=== PATIENT | female | born 1950 | race Caucasian/White ===

== ENCOUNTER 2016-05-30 16:23 | Outpatient (CLI) | payer OTHER ==
[2012-08-26 22:58] VITALS: TEMP 97.5
[2015-12-30 16:16] VITALS: BMI 30.8
[2016-05-30 17:15] LABS: FLU INTERNAL QC INTERNAL QC VALID; RAPID FLU A NEGATIVE (NEGATIVE); RAPID FLU B NEGATIVE (NEGATIVE)
== END 2016-05-30 16:24 | disposition home or self-care (01) ==
LOC: LAB 16:23
PROVIDERS: ATTEND Nurse Practitioner Family
DX: J02.9 Acute pharyngitis, unspecified (principal); R05 Cough; R50.9 Fever, unspecified
CPT/HCPCS: 87651; 87804; 87880

== ENCOUNTER 2016-06-28 09:03 | Outpatient (CLI) ==
[2012-08-26 22:58] VITALS: TEMP 97.5
[2015-12-30 16:16] VITALS: BMI 30.8
== END 2016-06-28 09:04 | disposition home or self-care (01) ==
LOC: CAR 09:03
PROVIDERS: ATTEND Nurse Practitioner
DX: J44.1 Chronic obstructive pulmonary disease with (acute) exacerbation (principal)

== ENCOUNTER 2016-07-02 08:02 | Outpatient (CLI) ==
[2012-08-26 22:58] VITALS: TEMP 97.5
[2015-12-30 16:16] VITALS: BMI 30.8
[2016-07-02 08:32] LABS: CREATININE 0.76 mg/dL (0.60-1.30)
--- NOTE | 2016-07-02 09:43 | CT ---
EXAM: CT chest with contrast. HISTORY: Abnormal chest radiograph. COMPARISON: 06/18/2016. CT 08/23/2015. TECHNIQUE: Multiple axial images of the chest were obtained following intravenous administration of 75 mL of Omnipaque 350, low osmolar. Images were reformatted in the sagittal and coronal planes. FINDINGS: No mediastinal, hilar, or axillary lymphadenopathy identified. Heart size is normal. Th ere is no pericardial. Mitral annular calcifications noted. Calcified granulomatous changes noted. No consolidation, pleural effusion or pneumothorax identifie d. No definite interstitial changes, bronchiectasis or fibrosis identified. Tiny noncalcified nodu les are seen in the right lung on axial images 21 and 35 measuring 0.3 cm. Limited images of the upper abdomen demonstrate a small right renal cyst. Degenerative changes pres ent in the spine. IMPRESSION: 1. No acute abnormality of the chest. 2. Right lung micronodules. Consider follow-up chest CT in 12 months if the patient is high risk. 3. Evidence of prior granulomatous disease.
== END 2016-07-02 08:03 | disposition home or self-care (01) ==
LOC: RAD 08:02
PROVIDERS: ATTEND Nurse Practitioner
DX: R93.8 Abnormal findings on diagnostic imaging of other specified body structures (principal)
CPT/HCPCS: 36415; 82565

== ENCOUNTER 2016-07-03 20:37 | Emergency (ER) ==
[2016-07-03 20:41] VITALS: BP 148/77; TEMP 96.6; BMI 34.4
--- NOTE | 2016-07-03 21:14 | ED.PDOC ---
General ED Provider: Dr. LESVIA GARCES Chief Complaint: Fall Stated Complaint: slipped the step and fell at home, ever since hurting rt upper extremity, neck, and rt side chest. Time Seen by Physician: 21:12 Mode of Arrival: Walk-In Information Source: Patient Primary Care Provider: SMITA LOWERY Nursing and Triage Documentation Reviewed and Agree: Yes Trauma/Injury Complaint Exam - Truncal Trauma Complaint/Exam Location of Pain: Reports: Right, Anterior, Chest Symptoms Are: Still present Onset of Pain: Reports: Immediate Initial Severity: Moderate Current Severity: Moderate Mechanism: Reports: Direct blow, Fall Aggravating: Reports: Movement, Deep breathing Alleviating: Reports: None Associated Signs and Symptoms: Denies: Short of air, Chest pain, Cough, Hematuria, Abdominal pain, Fever, Nausea, Vomiting Related History: Reports: Similar episode Related Surgical History: Reports: None Skin Findings: Present: Normal findings Differential Diagnoses: Chest Wall Contusion, Rib Fracture Review of Systems - Review Of Systems Constitutional: Reports: No symptoms Eyes: Reports: No symptoms Ears, Nose, Mouth, Throat: Reports: No symptoms Respiratory: Reports: No symptoms Cardiac: Reports: No symptoms GI: Reports: No symptoms : Reports: No symptoms Musculoskeletal: Reports: Back pain, Joint pain Skin: Reports: No symptoms Neurological: Reports: No symptoms Endocrine: Reports: No symptoms Hematologic/Lymphatic: Reports: No symptoms All Other Systems: Reviewed and Negative Past Medical History - Past Medical History Previously Healthy: No Endocrine: Reports: Hypothyroid Cardiovascular: Reports: None Respiratory: Reports: None Hematological: Reports: None Gastrointestinal: Reports: GERD Genitourinary: Reports: None Neuro/Psych: Reports: Migraine Musculoskeletal: Reports: Arthritis Cancer: Reports: None Last Menstrual Period: none - Surgical History General Surgical History: Reports: Tubal ligation (TUBAL LIGATION 1976), Cholecystectomy (CHOLECYSTYECTOMY 1970), Other (intraoccular lens replacement on left eye.) - Family History Family History: Reports: Unknown - Social History Smoking Status: Former smoker Hx Substance Use: No Alcohol Screening: None Physical Exam - Physical Exam Appearance: No pain distress, Well-nourished, Obese Pain Distress: Moderate Eyes: JAMMIE, EOMI, Conjunctiva clear ENT: Ears normal, Nose normal, Oropharynx normal Respiratory: Airway patent, Breath sounds clear, Breath sounds equal, Respirations nonlabored Cardiovascular: RRR, Pulses normal, No rub, No murmur GI/: Soft, Nontender, No masses, Bowel sounds normal, No Organomegaly Musculoskeletal: No edema, No calf tenderness, Limited ROM, Limited strength Skin: Warm, Dry, Normal color Neurological: Sensation intact, Motor intact, Reflexes intact, Cranial nerves intact, Alert, Oriented Psychiatric: Affect appropriate, Mood appropriate Interpretation - Radiology Interpretation Radiology Interpretation By: Radiologist Radiology Results: Negative Exam Interpreted: CT Scan Critical Care Note - Critical Care Note Total Time (mins): 0 Course - Course Orders, Labs, Meds: Orders Category Date Time Status Ketorolac Tromethamine [Toradol] MEDS 07/03/16 22:08 Discontinued 30 mg IM ONCE STA CT CERVICAL SPINE W/O CONTRAST Stat RADS 07/03/16 21:[address] CHEST W/O CONTRAST Stat RADS 07/03/16 21:[address] MAXILLOFACIAL W/O CONTRAST Stat RADS 07/03/16 21:48 Completed FOREARM, RIGHT 2 VIEWS Stat RADS 07/03/16 21:10 Completed SHOULDER, RIGHT MIN 2V Stat RADS 07/03/16 21:10 Completed WRIST, RIGHT 3 VIEWS Stat RADS 07/03/16 21:10 Completed Medications Discontinued Medications Generic Name Dose Route Start Last Admin Trade Name Freq PRN Reason Stop Dose Admin Ketorolac Tromethamine 30 mg 07/03/16 22:08 07/03/16 22:19 Toradol IM 07/03/16 22:09 30 mg ONCE STA Administration Vital Signs: Temp Pulse Resp BP Pulse Ox 07/03/16 20:37 96.6 F L 62 20 148/77 H 97 Departure - Departure Time of Disposition: 22:55 Disposition: HOME SELF-CARE Discharge Problem: Contusion of chest wall Qualifiers: Encounter type: initial encounter Laterality: right Qualifier Code: (S20.211A) Contusion of right front wall of thorax, initial encounter Instructions: Fall Prevention for Older Adults (ED) Condition: Stable Pt referred to PMD for follow-up: Yes Additional Instructions: Keep taking pain medications Increase hydration rest fall risk discussed Allergies/Adverse Reactions: Allergies strawberry Allergy (Unknown, Verified 07/03/16 20:41) morphine Adverse Reaction (Intermediate, Verified 07/03/16 20:41) Chest Tightness tomatoes Allergy (Unknown, Uncoded 05/30/16 15:01) Home Medications: Ambulatory Orders Multivitamin 1 cap PO DAILY 08/26/12 Ranitidine HCl 150 mg PO BID 08/26/12 Levothyroxine Sodium 100 mcg PO DAILY 06/08/15 Meloxicam 15 mg PO DAILY 06/08/15 Potassium Chloride 10 meq PO DAILY 06/08/15 Cholecalciferol (Vitamin D3) [Vitamin D] 50,000 unit PO WEEKLY 06/09/15 Ibuprofen 800 mg PO PRN PRN 08/18/15 Venlafaxine HCl [Effexor Xr] 150 mg PO DAILY 08/18/15 Albuterol Sulfate [Proair Hfa] 2 puff IH Q4-6H PRN 08/24/15 Budesonide/Formoterol Fumarate [Symbicort 80-4.5 Mcg Inhaler] 2 puff IH BID Cyanocobalamin (Vitamin B-12) [Vitamin B12] 2,500 mcg PO QAM 08/24/15 Gabapentin 600 mg PO TID 08/24/15 Lisinopril/Hydrochlorothiazide [Lisinopril-Hctz 20-12.5 mg Tab] 1 tab PO DAILY 08/24/15 Tizanidine HCl 4 mg PO Q8HR PRN 08/24/15 Epinephrine [Epipen Twinpak] 0.3 mg IM PRN PRN #1 pen.injctr 12/30/15 Oxybutynin Chloride [Ditropan Xl] 5 mg PO TID 12/30/15 Oxycodone-Acetaminophe 7.5-325 [Percocet 7.5-325] 1 tab PO ONCE 12/30/15 Gabapentin 300 mg PO TID 05/30/16 Mirabegron [Myrbetriq] 50 mg PO DAILY 05/30/16 Disposition Discussed With: Patient
[2016-07-03] MEDS: TORADOL IM STA (22:19)
--- NOTE | 2016-07-03 22:29 | CT ---
CT cervical spine without contrast HISTORY: Fall with injury and pain TECHNIQUE: CT of the cervical spine with multiplanar reformations. FINDINGS: Reformatted images demonstrate normal alignment with preservation of vertebral body heigh t. Multilevel endplate spondylosis and facet arthropathy changes. No fracture seen on the axial or reformatted images. No acute surrounding soft tissue abnormalitites. Lung apices are clear. IMPRESSION: No acute findings in the cervical spine.
--- NOTE | 2016-07-03 22:32 | CT ---
EXAM: CT of the chest without contrast. HISTORY: Fall. PROCEDURE: Contiguous axial CT images of the chest without contrast with multiplanar and 3-D reform ats. FINDINGS: The heart is within normal limits in size. The thoracic aorta is within normal limits in diameter. There are calcified hilar lymph nodes. There is a calcified granuloma in the right lower lobe. No infiltrate or consolidation. No pneumothorax. The bones are intact. The adrenal glands a nd liver are normal in appearance. Impression: Negative CT of the chest.
--- NOTE | 2016-07-03 22:33 | CT ---
Exam: CT facial bones History: Fall with facial injury and pain Technique: [address] facial bones with multiplanar reformations FINDINGS: Paranasal sinuses are clear. Orbits are intact. Zygoma and nasal bones are intact. [place] air cells and middle ears are clear. Maxilla and mandible are intact. Orbits are intact. [place] air cells and middle ears are clear. Impression: 1. No facial fracture
--- NOTE | 2016-07-03 22:34 | DI ---
EXAM: Three views of the right shoulder. HISTORY: Fall and pain. FINDINGS: The bones are intact with no evidence of fracture. The joint spaces are maintained. There is degenerative spurring along the inferior margin of the acromioclavicular joint. No soft tissue abnormality. Impression: No evidence of fracture. Degenerative changes as described.
--- NOTE | 2016-07-03 22:34 | DI ---
Exam: Right wrist three-view History: Fall with injury and pain Findings / impression: Advanced osteoarthritic change of the first carpal-metacarpal joint. No car pal fracture or distal radius fracture is seen. No acute bony or articular abnormalities are seen.
--- NOTE | 2016-07-03 22:36 | DI ---
EXAM: Two views of the right forearm. HISTORY: Fall. FINDINGS: The bones are intact with no evidence of fracture. The joint spaces are maintained. Ther e is degenerative spurring along the margins of the medial and lateral humeral epicondyles and along the margin of the coronoid process. No soft tissue abnormality. Impression: No evidence of fracture. Degenerative changes as described.
== END 2016-07-03 23:00 | disposition home or self-care (01) ==
LOC: ED 20:37
DX: S20.211A Contusion of right front wall of thorax, initial encounter (principal); M54.2 Cervicalgia; M79.601 Pain in right arm; W10.9XXA Fall (on) (from) unspecified stairs and steps, initial encounter; Y92.009 Unspecified place in unspecified non-institutional (private) residence as the place of occurrence of the external cause
CPT/HCPCS: 96372; 99283

== ENCOUNTER 2016-11-06 10:57 | Emergency (ER) ==
[2016-11-06 11:01] VITALS: BP 154/74; TEMP 97.5; BMI 39.1
[2016-11-06 11:55] LABS: BASOPHILS # (AUTO) 0.1 K/uL (0-0.2); BASOPHILS % (AUTO) 0.6 % (0.0-3.0); EOSINOPHILS # (AUTO) 0.3 K/ul (0.0-0.7); EOSINOPHILS % (AUTO) 3.3 % (0.0-7.0); HEMATOCRIT 37.8 % (37.0-47.0); IMMATURE GRANULOCYTE % (AUTO) 0.1 % (0.0-5.0); LYMPHOCYTES # (AUTO) 1.8 K/uL (0.60-3.4); LYMPHOCYTES % (AUTO) 20.8 (10.0-50.0); MEAN CORPUSCULAR HEMOGLOBIN 31.5 pg (27.0-31.0); MEAN CORPUSCULAR HGB CONC 34.4 (31.8-35.4); MEAN CORPUSCULAR VOLUME 91.5 fl (81.0-99.0); MONOCYTES # (AUTO) 0.9 K/uL (0.4-2.0); MONOCYTES % (AUTO) 10.3 (0-10); NEUTROPHILS # (AUTO) 5.5 K/ul (2.0-6.9); NEUTROPHILS % (AUTO) 64.9; PLATELET COUNT 242 10^3/uL (140-440); RED BLOOD COUNT 4.13 10^6/ul (4.20-5.40); WHITE BLOOD COUNT 8.41 K/ul (4.6-10.2)
[2016-11-06 12:28] LABS: ALBUMIN 3.6 g/dL (3.4-5.0); ALBUMIN/GLOBULIN RATIO 0.95; ANION GAP 15.6; BILIRUBIN,TOTAL 0.38 mg/dL (0.00-1.20); BUN/CREATININE RATIO 20.25; CALCIUM 9.8 mg/dL (8.2-10.2); CREATININE 0.79 mg/dL (0.60-1.30); POTASSIUM 3.6 mmol/L (3.5-5.10); TOTAL PROTEIN 7.4 g/dL (5.8-8.1); TROPONIN I 0.033 ng/ml (0.0000-0.4000)
[2016-11-06 12:29] LABS: CREATINE KINASE MB 2.9 ng/ml (0.0-3.6)
--- NOTE | 2016-11-06 12:36 | CT ---
EXAM: CT head without contrast. HISTORY: Left arm weakness. COMPARISON: 09/09/2016. TECHNIQUE: Multiple axial images of the brain were obtained from the skull base through the vertex without intravenous contrast. FINDINGS: There is no intracranial hemorrhage or extraaxial collection. The lopez-white differentia tion is maintained without evidence for acute large vascular territory infarction. There are areas of periventricular and subcortical white matter low attenuation. The cortical sulci and cerebral ve ntricles are symmetrically enlarged. The basal cisterns are well visualized. There is no hydroceph alus, mass effect, or midline shift. The paranasal sinuses and mastoid air cells are clear. The ca lvarium is intact. Since the prior study, there has been no significant interval change. IMPRESSION: 1. No acute intracranial abnormality. 2. Chronic small vessel ischemic changes and atrophy.
--- NOTE | 2016-11-06 12:37 | CT ---
EXAM: CT left shoulder without contrast. HISTORY: Left shoulder pain, weakness. COMPARISON: Radiograph 04/26/2015. TECHNIQUE: Multiple axial images of the left shoulder were obtained without intravenous contrast. Images were reformatted in the sagittal and coronal planes. FINDINGS: Bone mineralization is decreased. No fracture or dislocation identified. Moderate to se dandre joint space narrowing and spurring seen at the acromioclavicular joint. Mild to moderate palomo es seen at the glenohumeral joint. No erosive changes identified. Adjacent soft tissues are unremar kable. Visualized right lung is clear IMPRESSION: 1. No fracture or dislocation. 2. 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
--- NOTE | 2016-11-06 12:39 | CT ---
EXAM: CT chest without contrast HISTORY: Cough COMPARISON: CT chest 07/03/2016 and multiple priors TECHNIQUE: Serial axial images of the chest were obtained from the lung apices to the upper abdomen without contrast. These were viewed in multiple planes. FINDINGS: The thyroid is normal. The visualized vessels demonstrate minimal atherosclerotic change without aneurysm or stenosis. The heart is normal in size without pericardial effusion. There are no pathologically enlarged mediastinal or hilar lymph nodes. Few small calcified right hilar lymph nodes are present. The there is no pneumothorax or pleural effusion. There is motion artifact which mildly limits this evaluation. There is minimal bibasilar atelectasis. Calcified granulomas noted in the right lower lobe. The airways are patent. The osseous structures demonstrate degenerative disease throughout the thoracic spine no compression fracture. The soft tissues in the upper abdomen are unchanged from prior examination with an exoph ytic low attenuation lesion of the right kidney. IMPRESSION: 1. No acute cardiopulmonary process with minimal bibasilar atelectasis. 2. Sequela of old granulomatous disease. 3. Multilevel degenerative disease of the spine.
--- NOTE | 2016-11-06 12:55 | ED.PDOC ---
General ED Provider: Dr. SAMAN COLVIN Chief Complaint: Weakness Stated Complaint: right shoulder pain with movement Time Seen by Physician: 11:00 (nurse atbedside at all times pat and cher ) Mode of Arrival: Walk-In Information Source: Patient Exam Limitations: No limitations Primary Care Provider: SMITA LOWERY Nursing and Triage Documentation Reviewed and Agree: Yes (must have mri cher present pulses checked) Musculoskeletal Complaint Exam - Shoulder Pain Complaint/Exam Mechanism of Injury: Reports: No known trauma Onset/Duration: chronic Timing: Constant Initial Severity: Moderate Current Severity: Moderate Character: Reports: Throbbing, Spasmodic, Stiffness Alleviating: Reports: Rest Aggravating: Reports: Movement, Lifting, Flexion, Extension, Internal rotation, External rotation, Abduction Associated Signs and Symptoms: Denies: Swelling, Redness, Bruising, Fever, Weakness, Numbness, Tingling Related History: Reports: Similar episode Non-Orthopedic Risk Factors: Reports: None Septic Arthritis Risk Factors: Reports: Extremes of age Related Surgical History: Reports: None Limited Range of Motion: Present: Abduction, Adduction, Flexion, Extension, Internal rotation, External rotation, Rotator cuff muscles, Rotator cuff insertion Differential Diagnoses: Rotator Cuff Injury, Sprain, Strain, Tendonitis Review of Systems - Review Of Systems Constitutional: Reports: No symptoms Eyes: Reports: No symptoms Ears, Nose, Mouth, Throat: Reports: No symptoms Respiratory: Reports: No symptoms Cardiac: Reports: No symptoms GI: Reports: No symptoms : Reports: No symptoms Musculoskeletal: Reports: Joint pain Skin: Reports: No symptoms Neurological: Reports: No symptoms Endocrine: Reports: No symptoms Hematologic/Lymphatic: Reports: No symptoms All Other Systems: Reviewed and Negative Past Medical History - Past Medical History Previously Healthy: No Endocrine: Reports: Hypothyroid Cardiovascular: Reports: None Respiratory: Reports: None Hematological: Reports: None Gastrointestinal: Reports: GERD Genitourinary: Reports: None Neuro/Psych: Reports: Migraine Musculoskeletal: Reports: Arthritis Cancer: Reports: None Last Menstrual Period: none - Surgical History General Surgical History: Reports: Tubal ligation (TUBAL LIGATION 1976), Cholecystectomy (CHOLECYSTYECTOMY 1970), Other (intraoccular lens replacement on left eye.) - Family History Family History: Reports: Unknown - Social History Smoking Status: Current every day smoker, Light tobacco smoker Hx Substance Use: No Alcohol Screening: None Physical Exam - Physical Exam Appearance: Well-appearing, No pain distress, Well-nourished Eyes: JAMMIE, EOMI, Conjunctiva clear ENT: Ears normal, Nose normal, Oropharynx normal Respiratory: Airway patent, Breath sounds clear, Breath sounds equal, Respirations nonlabored Cardiovascular: RRR, Pulses normal, No rub, No murmur GI/: Soft, Nontender, No masses, Bowel sounds normal, No Organomegaly Musculoskeletal: Limited ROM (on all planes of motion with same pain distal pulses are strong and present) Skin: Warm, Dry, Normal color Neurological: Sensation intact, Motor intact, Reflexes intact, Cranial nerves intact, Alert, Oriented Psychiatric: Affect appropriate, Mood appropriate Interpretation - Radiology Interpretation Radiology Interpretation By: Radiologist Radiology Results: Positive (djd) Critical Care Note - Critical Care Note Total Time (mins): 0 Course - Course Hematology/Chemistry: 11/06/16 11:49 11/06/16 11:49 Orders, Labs, Meds: Lab Review 11/06/16 11:49 WBC 8.41 RBC 4.13 L Hgb 13.0 Hct 37.8 MCV 91.5 MCH 31.5 H MCHC 34.4 RDW Coeff of [place] 13.2 Plt Count 242 Immature Gran % (Auto) 0.1 Neut % (Auto) 64.9 Lymph % (Auto) 20.8 [place] % (Auto) 10.3 H Eos % (Auto) 3.3 Baso % (Auto) 0.6 Immature Gran # (Auto) 0.0 Neut # 5.5 Lymph # 1.8 [place] # 0.9 Eos # 0.3 Baso # 0.1 Sodium 142 Potassium 3.6 Chloride 104 Carbon Dioxide 26 Anion Gap 15.6 BUN 16 Creatinine 0.79 Estimated GFR (MDRD) 73.00 BUN/Creatinine Ratio 20.25 Glucose 143 H Calcium 9.8 Total Bilirubin 0.38 AST 16 ALT 22 Alkaline Phosphatase 66 Total Creatine Kinase 125 CK-MB (CK-2) 2.9 CK-MB (CK-2) % 2.63560 Troponin I 0.0330 Total Protein 7.4 Albumin 3.6 Globulin 3.8 Albumin/Globulin Ratio 0.95 Orders Category Date Time Status CBC W/ AUTO DIFF Stat LAB 11/06/16 11:49 Completed COMPREHENSIVE METABOLIC PANEL Stat LAB 11/06/16 11:49 Completed CREATINE KINASE Stat LAB 11/06/16 11:49 Completed TROPONIN I Stat LAB 11/06/16 11:[address] CHEST W/O CONTRAST Stat RADS 11/06/16 11:[address] HEAD W/O CONTRAST Stat RADS 11/06/16 11:[address] SHOULDER LEFT W/O CONTRAST Stat RADS 11/06/16 11:40 Completed Vital Signs: Temp Pulse Resp BP Pulse Ox 11/06/16 10:57 97.5 F L 72 18 154/74 H 95 Departure - Departure Time of Disposition: 12:55 Disposition: HOME SELF-CARE Discharge Problem: Shoulder pain, left Instructions: Arthralgia (ED), Calcific Tendinitis (ED), Shoulder Sprain (ED), Adhesive Capsulitis (ED), Shoulder Pain (ED) Condition: Good Pt referred to PMD for follow-up: Yes Additional Instructions: Please call your Family Physician as soon as possible to schedule a follow-up appointment. Allergies/Adverse Reactions: Allergies strawberry Allergy (Unknown, Verified 11/06/16 11:01) morphine Adverse Reaction (Intermediate, Verified 11/06/16 11:01) Chest Tightness tomatoes Allergy (Unknown, Uncoded 05/30/16 15:01) Home Medications: Ambulatory Orders Multivitamin 1 cap PO DAILY 08/26/12 Ranitidine HCl 150 mg PO BID 08/26/12 Levothyroxine Sodium 100 mcg PO DAILY 06/08/15 Meloxicam 15 mg PO DAILY 06/08/15 Potassium Chloride 10 meq PO DAILY 06/08/15 Cholecalciferol (Vitamin D3) [Vitamin D] 50,000 unit PO WEEKLY 06/09/15 Ibuprofen 800 mg PO PRN PRN 08/18/15 Venlafaxine HCl [Effexor Xr] 150 mg PO DAILY 08/18/15 Albuterol Sulfate [Proair Hfa] 2 puff IH Q4-6H PRN 08/24/15 Budesonide/Formoterol Fumarate [Symbicort 80-4.5 Mcg Inhaler] 2 puff IH BID Cyanocobalamin (Vitamin B-12) [Vitamin B12] 2,500 mcg PO QAM 08/24/15 Gabapentin 600 mg PO TID 08/24/15 Lisinopril/Hydrochlorothiazide [Lisinopril-Hctz 20-12.5 mg Tab] 1 tab PO DAILY 08/24/15 Tizanidine HCl 4 mg PO Q8HR PRN 08/24/15 Epinephrine [Epipen Twinpak] 0.3 mg IM PRN PRN #1 pen.injctr 12/30/15 Oxybutynin Chloride [Ditropan Xl] 5 mg PO TID 12/30/15 Oxycodone-Acetaminophe 7.5-325 [Percocet 7.5-325] 1 tab PO ONCE 12/30/15 Gabapentin 300 mg PO TID 05/30/16 Mirabegron [Myrbetriq] 50 mg PO DAILY 05/30/16 Hydrocodone/Acetaminophen [[place] 10-325 Tablet] 1 each PO Q8HR #12 tablet
== END 2016-11-06 13:16 | disposition home or self-care (01) ==
LOC: ED 10:57
DX: M25.512 Pain in left shoulder (principal); R53.1 Weakness; E03.9 Hypothyroidism, unspecified; M19.90 Unspecified osteoarthritis, unspecified site; Z79.899 Other long term (current) drug therapy; F17.210 Nicotine dependence, cigarettes, uncomplicated
CPT/HCPCS: 36415; 80053; 82550; 82553; 84484; 85025; 93005; 93010; 99283

== ENCOUNTER → 2017-01-30 | Outpatient (RCR) ==
[2012-08-26 22:58] VITALS: TEMP 97.5
--- NOTE | 2017-01-30 15:19 | RS.OPPTEV2 ---
Date of Note: 01/30/17 Visit #: 1 Date of Evaluation: 01/30/17 Payer Source: MEDICARE Treatment Diagnosis: Right shoulder stiffness, weakness, pain. History of Condition/Mechanism of Injury:: Patient reports having a Rotator cuff repair on 12/05/16 then found out she had an infection and had to have another surgery to clean it out on 01/08/17. Prior Level of Function.....Patient was independent with: ADL's, Self Care, Caregiving, Ambulation/Mobility, Community Integration/Access Functional Limitations: Sleep, Self Care, ADL's, Reaching, Pushing, Pulling, Lifting, Carrying, Community Access/Integration Current Subjective/complaints:: Patient reports she is right handed and has limited use of the right UE at this time. States she has been have to learn to do things with the left UE. She reports pain with attempts to use the right UE. She has been performing the pendulum exercises as instructed by the doctor' s office. Reports no problems with the left UE. She is unable to use the right UE for selfcare or ADL's. She takes pain medication as needed. Patient states she has been having trouble closing the right hand completely since her surgery. States she wore a sling home from the initial surgery and was told she could take it off when she got home. Also instructed to avoid lifting over 1 lb. Treatment Side (optional): Right Medical History Smoking Status: Former smoker Hx Home Medications: Venlafaxine, Percocet, Ditropan, Meloxicam,Lisinopril-HCTZ , Levothyroxine, Ibuprofen, Bagapentin, [place]. Patient's Goals: Her goal is to regain functional use of the right UE. Pain Assessment - Pain Description Pain Location: right shoulder Current Pain Intensity: 5/10 Worst Pain Intensity: 7/10 Functional Outcome Measure UE Functional Index: 27 (27/80=66.25% impairment) - G Codes & Severity Modifier G Codes & Modifier: Selfcare current CL. Selfcare goal CJ Source of G Code score: UE functional scale. Observation - Observation Posture: Forward Head, Rounded Shoulders, Scapula Asymmetry (right scapula depressed compared to left) Handedness: Right Shoulder ROM: Left WFL's Shoulder Muscle Strength: Left WFL's - Right Shoulder ROM Right Shoulder Flexion: 35 (degrees AROM) Right Shoulder Extension: 40 (degrees AROM) Right Shoulder Abduction: 31 (degrees AROM) Right Shoulder Internal Rotation: 60 (degrees AROM) Right Shoulder External Rotation: 0 (degrees AROM) Right Shoulder ROM Limitations: Soft Tissue Tightness, Muscle Weakness, Pain Comments: PROM of the right shoulder: flexion 80-85 degrees, abduction 78-80 degrees, ER 5 degrees. - Right Shoulder Strength Right Shoulder Flexion: 3+ Fair+ Right Shoulder Extension: 4 Good Right Shoulder Abduction: 3 Fair Right Shoulder Adduction: 4 Good Right Shoulder External Rotation: 4- Good- Right Shoulder Internal Rotation: 4 Good - Special Tests Comments: Unable to perform valid Special tests due to pain and limited movement. Barrel Planer Strength Left Hand Barrel Planer Strength: 35 lbs. Right Hand Barrel Planer Strength: 5 lbs. Dynamometer Testing Position: 2nd Position Palpation Comments:: Patient reports some tenderness over her incision and over the insertion site of the supraspinatus and infraspinatus tendons. Sensation - Sensation Right Upper Extremity: Intact/Normal Left Upper Extremity: Intact/Normal Interventions - Exercise/Activities/Manual Therapy Exercises/Activities: Patient instructed in RTC series in pendulum position, wand for active assisted shoulder flexion and abduction, and self stretch in shoulder ER. Received stretching into right shoulder flexion, abduction, and ER. Performed contract-relax technique for shoulder IR to stretch further into ER. Total minutes of Exercise: X 14 mins Manual Therapy: NA HOME EXERCISE PROGRAM: RTC series in pendulum position, wand for active assisted shoulder flexion and abduction, and self stretch in shoulder ER. - Charges Total Direct Minutes: 50 mins Total Treatment Time: 50 mins Procedures billed for this date of service:: QUAN Goyal Assessment Assessment: Patient presents to therapy following right RTC repair and Excisional irrigation debridement of the right shoulder. She reports limited use of the right shoulder due to pain and weakness. She exhibits marked limitation of shoulder strength and AROM. She exhibits a capsular pattern of tightness with PROM. She is right hand dominant and requires functional shoulder AROM to perform selfcare and ADL's independently. She will benefit from stretching and progressed strengthening exercises to gain function AROM of the right UE. Patient Education: Education of diagnosis, Body/Joint mechanics, Home Exercise Program, Activity Modification, Education of Plan of Care Rehab Potential: Good Short Term Goals Goal #1: Right shoulder PROM flexion WFL's. Goal to be met by: 02/13/17 Goal #2: Passive right shoulder ER 30 degrees. Goal to be met by: 02/13/17 Goal #3: Patient and spouse independent in home exercise program. Goal to be met by: 02/13/17 Goal #4: Pt to demonstrate good postural awareness. Goal to be met by: 02/13/17 Custodial Goals Goal #1: Pt knows HEP and to continue ex's to maintain functional level at D/C. Goal to be met by: 03/11/17 Goal #2: Score on UE functional scale improved to less than 39% impairment. Goal to be met by: 03/11/17 Goal #3: Right shoulder AROM improved to allow pt to perform light ADL's & selfcare. Goal to be met by: 03/11/17 Goal #4: Pt to report right shoulder pain minimal with movement. Goal to be met by: 03/11/17 Plan - Treatment to be Provided Procedures: Therapeutic Exercises, Therapeutic Activity, Manual Therapy, Patient Education Modalities: Cryotherapy, Hot Packs - Treatment Plan Frequency: 3 X week Duration: 4 weeks ORDER # VISITS AND/OR THROUGH DATE: 03/11/17 - Treatment Code (1) Shoulder pain Code(s): M25.519 - PAIN IN UNSPECIFIED SHOULDER Qualifiers: Chronicity: acute Laterality: right Qualified Code(s): M25.511 - Pain in right shoulder (2) Shoulder stiffness Qualifiers: Laterality: right Qualified Code(s): M25.611 - Stiffness of right shoulder , not elsewhere classified (3) Weakness of shoulder Code(s): M62.81 - MUSCLE WEAKNESS (GENERALIZED) Comments: M62.81 (4) Status post rotator cuff repair Code(s): Z98.89 - OTHER SPECIFIED POSTPROCEDURAL STATES * DO NOT USE * Comments: Z98.890
== END ==
PROVIDERS: ATTEND Orthopaedic Surgery
DX: M25.511 Pain in right shoulder (principal); M25.611 Stiffness of right shoulder, not elsewhere classified; M62.81 Muscle weakness (generalized); Z47.89 Encounter for other orthopedic aftercare; Z98.890 Other specified postprocedural states

== ENCOUNTER 2017-02-28 10:00 | Outpatient (RCR) ==
[2012-08-26 22:58] VITALS: TEMP 97.5
--- NOTE | 2017-01-31 15:45 | RS.CSNOTE ---
PT Case Note Date of Note: 01/31/17 Title of document: Contact with Dr. Walters's office Note: Left a message with Salma at Dr. Walters's office regarding operative report from their office states that the rotator cuff reconstruction failed, but the patient and her spouse did not appear to have been informed of that. Salma called back this afternoon after asking Dr. Walters about it and he stated that they were informed.
--- NOTE | 2017-02-04 11:28 | RS.CSNOTE ---
PT Case Note Date of Note: 02/04/17 Title of document: Discussion with patient's spouse. Note: Patient's stopped to speak with me regarding his moving her arm more and being consistent with her exercises. I discussed with him receiving the surgery report from Dr. Walters's office for the second procedure and that it mentioned that the RTC reconstruction failed. Mr. Martinez states they were not informed that the reconstruction failed and asked that he be able to tell the patient instead of us telling her. He requested a copy of the surgery report and I informed him he would need to request a copy from the doctor's office or hospital.
--- NOTE | 2017-02-04 16:36 | RS.OPPTDN ---
Subjective Date of Note: 02/04/17 Visit #: 2 Date of Evaluation: 01/30/17 Payer Source: MEDICARE Treatment Diagnosis: Right shoulder stiffness, weakness, pain. Current Subjective/complaints:: Patient says she has been performing HEP ( pendulum, AA wand exercises for flexion/abd). Iman admits difficulty and pain with doorway ER. She says she can lift the arm better especially when she is supine and uses rice heat pad. She reports a "pop" last night indicated at the R shoulder during active shoulder flexion, but did not produce pain. - Treatment Modality: Electrical Stim Unattended Parameters/Method Applied: 4 small pads hivolt @ 125-130 pk volts x 20 mins surrounding the R shoulder prior to therex Patient Position: Sitting - Heat/Cryotherapy Treatment: Hot Pack Interventions - Exercise/Activities/Manual Therapy Exercises/Activities: Patient received Passive R shoulder all dir supine. Very limited range for ER (in fact, patient only able to achieve neutral). Patient receives long axis distraction multiple reps and contract/relax techniques for ER achievement. Patient performs AAROM using wand for bilateral shoulder flexion. Sitting at EOB: shoulder shrugs and scap adduction. Reviewed HEP and discussed mechanics of the shoulder and educated on anatomy. Total minutes of Exercise: 22 Manual Therapy: NA HOME EXERCISE PROGRAM: RTC series in pendulum position, wand for active assisted shoulder flexion and abduction, and self stretch in shoulder ER. - Charges Timed Code Treatment Minutes: 22 Total Treatment Time: 42 Procedures billed for this date of service:: hp, estim (un), ex Assessment: Patient presents with moderate pain level to the R shoulder that increases with exercise. Patient experiences relief with long axis distraction as well as increased shoulder flexion passively and actively by ~10-15 degrees. No real improvement with ER or abd however after treatment. Patient Education: Education of diagnosis, Body/Joint mechanics, Home Exercise Program, Home Safety Patient demonstrates compliance with HEP?: Yes Short Term Goals Goal #1: Right shoulder PROM flexion WFL's. Goal to be met by: 02/13/17 Progress towards Goal:: Progressing Goal #2: Passive right shoulder ER 30 degrees. Goal to be met by: 02/13/17 Goal #3: Patient and spouse independent in home exercise program. Goal to be met by: 02/13/17 Goal #4: Pt to demonstrate good postural awareness. Goal to be met by: 02/13/17 Retirement Goals Goal #1: Pt knows HEP and to continue ex's to maintain functional level at D/C. Goal to be met by: 03/11/17 Goal #2: Score on UE functional scale improved to less than 39% impairment. Goal to be met by: 03/11/17 Goal #3: Right shoulder AROM improved to allow pt to perform light ADL's & selfcare. Goal to be met by: 03/11/17 Goal #4: Pt to report right shoulder pain minimal with movement. Goal to be met by: 03/11/17 Plan PLAN OF CARE EXPIRES ON:: 03/11/17 ORDER # VISITS AND/OR THROUGH DATE: 03/11/17 PLAN: Patient to continue for RTC protocol using modalities and therex x 4 weeks
--- NOTE | 2017-02-05 11:37 | RS.OPPTDN ---
Subjective Date of Note: 02/05/17 Visit #: 3 Date of Evaluation: 01/30/17 Payer Source: MEDICARE Treatment Diagnosis: Right shoulder stiffness, weakness, pain. Current Subjective/complaints:: Patient says she has been performing HEP often and happy to see that she is able to lift her arm higher (but does include this is AAROM). She denies pain medication today and says she continues to include rice heat pack at home. Pain Assessment - Pain Description Pain Location: sore at the GH joint and distal clavicle - Treatment Modality: Electrical Stim Unattended Parameters/Method Applied: hivolt 4 small pads @ 85-95 pk volts x 20 mins surrounding the R shoulder Treatment Area: prior to therex Patient Position: Sitting - Heat/Cryotherapy Treatment: Hot Pack Interventions - Exercise/Activities/Manual Therapy Exercises/Activities: Patient received Passive R shoulder all dir supine. Very limited range for ER improved slightly to ~5 degrees. Patient receives long axis distraction multiple reps and contract/relax techniques for ER achievement. Manual isometrics for IR/ER and shoulder flexion x 5. Patient performs AAROM using wand for bilateral shoulder flexion and chest press x 10. Sitting at EOB: shoulder shrugs and scap adduction, 1# wand for bilateral shoulder flexion x 8. Pulleys x 10 with intermittent holds in terminal flexion. Total minutes of Exercise: 27 Manual Therapy: NA HOME EXERCISE PROGRAM: RTC series in pendulum position, wand for active assisted shoulder flexion and abduction, and self stretch in shoulder ER. Wall slides - Charges Timed Code Treatment Minutes: 27 Total Treatment Time: 47 Procedures billed for this date of service:: hp, ex2 Assessment: Patient progressing with AA shoulder flexion, but continues to be very limited with active motion. She is maintaining low level pain and not having the need for pain medication today. Patient Education: Education of diagnosis, Body/Joint mechanics, Home Exercise Program Patient demonstrates compliance with HEP?: Yes Short Term Goals Goal #1: Right shoulder PROM flexion WFL's. Goal to be met by: 02/13/17 Progress towards Goal:: Progressing Goal #2: Passive right shoulder ER 30 degrees. Goal to be met by: 02/13/17 Goal #3: Patient and spouse independent in home exercise program. Goal to be met by: 02/13/17 Progress towards Goal:: Progressing Goal #4: Pt to demonstrate good postural awareness. Goal to be met by: 02/13/17 Insurance Compliance Analyst Goals Goal #1: Pt knows HEP and to continue ex's to maintain functional level at D/C. Goal to be met by: 03/11/17 Goal #2: Score on UE functional scale improved to less than 39% impairment. Goal to be met by: 03/11/17 Goal #3: Right shoulder AROM improved to allow pt to perform light ADL's & selfcare. Goal to be met by: 03/11/17 Goal #4: Pt to report right shoulder pain minimal with movement. Goal to be met by: 03/11/17 Plan PLAN OF CARE EXPIRES ON:: 03/11/17 ORDER # VISITS AND/OR THROUGH DATE: 03/11/17 PLAN: Progress with ROM actively as able.
--- NOTE | 2017-02-07 14:58 | RS.OPPTDN ---
Subjective Date of Note: 02/07/17 Visit #: 4 Date of Evaluation: 01/30/17 Payer Source: MEDICARE Treatment Diagnosis: Right shoulder stiffness, weakness, pain. Current Subjective/complaints:: Patient says her pain has been low with increased activity. says he sees she is able to lift and move her arm better. Pain Assessment - Pain Description Pain Location: along the R upper arm - Treatment Modality: Electrical Stim Unattended Parameters/Method Applied: 4 small pads surrounding the R shoulder/incisional area x 20 mins @ 90-105 pk volts Patient Position: Sitting - Heat/Cryotherapy Treatment: Hot Pack Interventions - Exercise/Activities/Manual Therapy Exercises/Activities: Patient received Passive R shoulder all dir supine. She continues to be very limited with ER. Patient receives long axis distraction multiple reps and contract/relax techniques for ER achievement. Manual isometrics for IR/ER and shoulder flexion x 5. Patient performs AAROM using wand for bilateral shoulder flexion and chest press x 10. Sitting at EOB: shoulder shrugs and scap adduction, 1# wand for bilateral shoulder flexion x 8. Wall slides for shoulder flexion. Patient able to achieve ~45 degrees active flexion and 50 degrees abd. This is an improvement from evaluation. Total minutes of Exercise: 26 Manual Therapy: NA HOME EXERCISE PROGRAM: RTC series in pendulum position, wand for active assisted shoulder flexion and abduction, and self stretch in shoulder ER. Wall slides - Charges Timed Code Treatment Minutes: 26 Total Treatment Time: 46 Procedures billed for this date of service:: hp, estim (un), ex2 Assessment: Patient demo increased active motion after week 1 of PT, but with major compensation and is scapular at this time. She is eager to continue on with PT to improve ROM and function. She is very compliant with HEP. Patient Education: Education of diagnosis, Body/Joint mechanics, Home Safety Short Term Goals Goal #1: Right shoulder PROM flexion WFL's. Goal to be met by: 02/13/17 Progress towards Goal:: Progressing Goal #2: Passive right shoulder ER 30 degrees. Goal to be met by: 02/13/17 Goal #3: Patient and spouse independent in home exercise program. Goal to be met by: 02/13/17 Progress towards Goal:: Progressing Goal #4: Pt to demonstrate good postural awareness. Goal to be met by: 02/13/17 Night Coordinator Goals Goal #1: Pt knows HEP and to continue ex's to maintain functional level at D/C. Goal to be met by: 03/11/17 Goal #2: Score on UE functional scale improved to less than 39% impairment. Goal to be met by: 03/11/17 Goal #3: Right shoulder AROM improved to allow pt to perform light ADL's & selfcare. Goal to be met by: 03/11/17 Goal #4: Pt to report right shoulder pain minimal with movement. Goal to be met by: 03/11/17 Plan PLAN OF CARE EXPIRES ON:: 03/11/17 ORDER # VISITS AND/OR THROUGH DATE: 03/11/17 PLAN: Continue for therex and modalities to improve ROM actively and function.
--- NOTE | 2017-02-10 11:38 | RS.OPPTDN ---
Subjective Date of Note: 02/10/17 Visit #: 5 Date of Evaluation: 01/30/17 Payer Source: MEDICARE Treatment Diagnosis: Right shoulder stiffness, weakness, pain. Current Subjective/complaints:: Patient says she has been working on HEP and seems to be able to see some improvement with reaching, but supine only. Spouse says motion is not better in sitting or standing. Pain Assessment - Pain Description Pain Location: mostly with AROM against gravity and with end range passively R upper arm - Treatment Modality: Electrical Stim Unattended Parameters/Method Applied: hivolt 4 small pads around the R shoulder @ 60-65 pk volts x 20 mins prior to therex Patient Position: Sitting - Heat/Cryotherapy Treatment: Hot Pack Interventions - Exercise/Activities/Manual Therapy Exercises/Activities: Patient received Passive R shoulder all dir supine. She continues to be very limited with ER. Patient receives long axis distraction multiple reps and contract/relax techniques for ER achievement. Manual isometrics for IR/ER and shoulder flexion/ext x 5. Patient performs AAROM using wand for bilateral shoulder flexion and chest press x 10. Sitting at EOB : shoulder shrugs and scap adduction, 1# wand for bilateral shoulder flexion x 8. Wall slides for shoulder flexion. Patient able to achieve ~45 degrees active flexion and 50 degrees abd supine. Ended with Pulleys for flexion x 15 with static holds at end ranges. Total minutes of Exercise: 32 Manual Therapy: NA HOME EXERCISE PROGRAM: RTC series in pendulum position, wand for active assisted shoulder flexion and abduction, and self stretch in shoulder ER. Wall slides - Charges Timed Code Treatment Minutes: 32 Total Treatment Time: 52 Procedures billed for this date of service:: hp, estim (un), ex2 Assessment: Patient demo good compliancy with HEP and desires to improve with ROM/strength. She is able to demo minimal improvement with active shoulder flexion, but in supine only at this time. Remains with mild to moderate pain level only at the R upper arm along the mid deltoid. Patient Education: Education of diagnosis, Home Exercise Program Patient demonstrates compliance with HEP?: Yes Short Term Goals Goal #1: Right shoulder PROM flexion WFL's. Goal to be met by: 02/13/17 Progress towards Goal:: Progressing Goal #2: Passive right shoulder ER 30 degrees. Goal to be met by: 02/13/17 Progress towards Goal:: No Change Goal #3: Patient and spouse independent in home exercise program. Goal to be met by: 02/13/17 Progress towards Goal:: Progressing Goal #4: Pt to demonstrate good postural awareness. Goal to be met by: 02/13/17 Director Of Construction Goals Goal #1: Pt knows HEP and to continue ex's to maintain functional level at D/C. Goal to be met by: 03/11/17 Goal #2: Score on UE functional scale improved to less than 39% impairment. Goal to be met by: 03/11/17 Goal #3: Right shoulder AROM improved to allow pt to perform light ADL's & selfcare. Goal to be met by: 03/11/17 Goal #4: Pt to report right shoulder pain minimal with movement. Goal to be met by: 03/11/17 Plan PLAN OF CARE EXPIRES ON:: 03/11/17 ORDER # VISITS AND/OR THROUGH DATE: 03/11/17 PLAN: Patient to continue for therex to improve R UE ROM/strength
--- NOTE | 2017-02-13 11:54 | RS.OPPTDN ---
Subjective Date of Note: 02/13/17 Visit #: 6 Date of Evaluation: 01/30/17 Payer Source: MEDICARE Treatment Diagnosis: Right shoulder stiffness, weakness, pain. Current Subjective/complaints:: Patient and spouse reports improved active shoulder flexion and abd. She says she is working on HEP 2 times daily. She says she is able to put on her jacket now and is not relying on pain meds but 1 pill every other day. Pain Assessment - Pain Description Pain Location: R upper arm sore - Treatment Modality: Electrical Stim Unattended Parameters/Method Applied: 4 small pads to the R shoulder cross current @ 110- 130 pk volts x 15 Patient Position: Sitting - Heat/Cryotherapy Treatment: Hot Pack Interventions - Exercise/Activities/Manual Therapy Exercises/Activities: Patient received Passive R shoulder all dir supine. Patient receives long axis distraction multiple reps and contract/relax techniques for ER achievement. Manual isometrics for IR/ER and shoulder flexion /ext x 5. Patient performs AAROM using wand for bilateral shoulder flexion and chest press x 10. Active reaching (punches) and shoulder flexion. Isometrics for shoulder flexion and abd with elbow extended 2x5 reps. 1# dumbell for wrist motions in supine x 10 and elbow sup/pron x 10. Prone for pendulum with 1 # dumbell and for RTC series x 10 each dir and shrugging with the R UE. Sitting at EOB: shoulder shrugs and scap retraction with 1# wand for bilateral shoulder flexion x 8. Ended with pulleys x 20 reps with static holds. Total minutes of Exercise: 38 Manual Therapy: NA HOME EXERCISE PROGRAM: RTC series in pendulum position, wand for active assisted shoulder flexion and abduction, and self stretch in shoulder ER. Wall slides - Charges Timed Code Treatment Minutes: 38 Total Treatment Time: 53 Procedures billed for this date of service:: hp, estim (un), ex3 Assessment: Patient demo increased AA shoulder flexion to 117 degrees in supine using 1# therapy stick, also increased ROM allowing her to be able to gerard/doff jacket/shirts now. She is obviously working on HEP consistently with seeing improvements at home with mobility and function. Patient Education: Education of diagnosis, Home Exercise Program Patient demonstrates compliance with HEP?: Yes Short Term Goals Goal #1: Right shoulder PROM flexion WFL's. Goal to be met by: 02/13/17 Progress towards Goal:: Progressing Goal #2: Passive right shoulder ER 30 degrees. Goal to be met by: 02/13/17 Progress towards Goal:: Progressing Comments:: very slightly ~3 degrees beyond neutral Goal #3: Patient and spouse independent in home exercise program. Goal to be met by: 02/13/17 Progress towards Goal:: Progressing Goal #4: Pt to demonstrate good postural awareness. Goal to be met by: 02/13/17 Progress towards Goal:: Progressing [facility] Goals Goal #1: Pt knows HEP and to continue ex's to maintain functional level at D/C. Goal to be met by: 03/11/17 Goal #2: Score on UE functional scale improved to less than 39% impairment. Goal to be met by: 03/11/17 Goal #3: Right shoulder AROM improved to allow pt to perform light ADL's & selfcare. Goal to be met by: 03/11/17 Goal #4: Pt to report right shoulder pain minimal with movement. Goal to be met by: 03/11/17 Plan PLAN OF CARE EXPIRES ON:: 03/11/17 ORDER # VISITS AND/OR THROUGH DATE: 03/11/17 PLAN: Patient to continue with therex and wean estim to allow for progression of Active/Passive motion.
--- NOTE | 2017-02-14 11:28 | RS.OPPTDN ---
Subjective Date of Note: 02/14/17 Visit #: 7 Date of Evaluation: 01/30/17 Payer Source: MEDICARE Treatment Diagnosis: Right shoulder stiffness, weakness, pain. Current Subjective/complaints:: Patient reports improvement in active motion with right shoulder at low levels. Reports increased flexibility after passive stretching and distraction in supine. Pain Assessment - Pain Description Pain Location: Right shoulder joint Pain Description: Dull, Aching Current Pain Intensity: mild to mod - Treatment Modality: Electrical Stim Unattended Parameters/Method Applied: [id number] HVGC to 90p.v. with 4 small pads cross current to the right shoulder with HP prior to EX. Patient Position: Sitting - Heat/Cryotherapy Treatment: Hot Pack ([id number] with Estim ) Interventions - Exercise/Activities/Manual Therapy Exercises/Activities: Passive flexion in sitting. Isometric shouulder flex, ext , add, abd, IR, and ER. Attempt bilateral shoulder flexion with light wand, then short range IR/ER, and chest press. Patient received passive right shoulder and long axis distraction, in supine. Manual isometrics for IR/ER and shoulder flexion/ext. Patient performs AAROM using wand for bilateral shoulder flexion and chest press. Forward serratus punch with 1# dumbell. 1# dumbell for wrist and elbow. Standing leaning over high table for RTC series with 1# dumbell, 4 directions, 10reps each. Sitting at EOB: shoulder shrugs and scap retraction. Ended with overhead shoulder pulleys into flexion and abduction. Total minutes of Exercise: 30mins Manual Therapy: NA HOME EXERCISE PROGRAM: RTC series in pendulum position, wand for active assisted shoulder flexion and abduction, and self stretch in shoulder ER. Wall slides - Charges Timed Code Treatment Minutes: 30mins Total Treatment Time: 55mins Procedures billed for this date of service:: HP, Estim unattended, EX2 Assessment: Patient reports good response to increase in passive stretching of the right shoulder in supine. Patient Education: Home Exercise Program Patient demonstrates compliance with HEP?: Yes Short Term Goals Goal #1: Right shoulder PROM flexion WFL's. Goal to be met by: 02/13/17 Progress towards Goal:: Progressing Goal #2: Passive right shoulder ER 30 degrees. Goal to be met by: 02/13/17 Progress towards Goal:: Progressing Goal #3: Patient and spouse independent in home exercise program. Goal to be met by: 02/13/17 Progress towards Goal:: Progressing Goal #4: Pt to demonstrate good postural awareness. Goal to be met by: 02/13/17 Progress towards Goal:: Progressing Group Home Goals Goal #1: Pt knows HEP and to continue ex's to maintain functional level at D/C. Goal to be met by: 03/11/17 Goal #2: Score on UE functional scale improved to less than 39% impairment. Goal to be met by: 03/11/17 Goal #3: Right shoulder AROM improved to allow pt to perform light ADL's & selfcare. Goal to be met by: 03/11/17 Goal #4: Pt to report right shoulder pain minimal with movement. Goal to be met by: 03/11/17 Plan PLAN OF CARE EXPIRES ON:: 03/11/17 ORDER # VISITS AND/OR THROUGH DATE: 03/11/17 PLAN: Continue progression of ROM and strengthening exercise to reduce pain and increase functional use of the right UE.
--- NOTE | 2017-02-17 14:58 | RS.OPPTDN ---
Subjective Date of Note: 02/17/17 Visit #: 8 Date of Evaluation: 01/30/17 Payer Source: MEDICARE Treatment Diagnosis: Right shoulder stiffness, weakness, pain. Current Subjective/complaints:: Patient says she continues to see more motion, but is not moving as "high" as she'd like. She says she drove for the first time ~ 2 miles to the store over the weekend without difficulty. Denies any problems with pulling door shut or reaching for seat belt while riding passenger using the R UE. States she is working on HEP BID. Pain Assessment - Pain Description Pain Location: R upper arm sore and tight with active motion Pain Description: Tightness - Heat/Cryotherapy Treatment: Hot Pack (20 mins to the R shoulder and scapula in sitting) Interventions - Exercise/Activities/Manual Therapy Exercises/Activities: Passive flexion in sitting. Isometric shoulder flex, ext, add, abd, IR, and ER. Bilateral shoulder flexion with 1# wand, then short range IR/ER, and chest press x 10. Patient received passive right shoulder and long axis distraction, in supine. Manual isometrics for IR/ER and shoulder flexion/ext. Patient performs AAROM using wand for bilateral shoulder flexion and chest press. Forward serratus punch with 1# dumbell. 1# dumbell for wrist and elbow. Standing leaning over high table for RTC series with 1# dumbell, 4 directions, 10reps each. Sitting at EOB: shoulder shrugs and scap retraction. Red tband for scap retraction x 10. Ended with overhead shoulder pulleys into flexion and abduction x 15. Total minutes of Exercise: 29 Manual Therapy: NA HOME EXERCISE PROGRAM: RTC series in pendulum position, wand for active assisted shoulder flexion and abduction, and self stretch in shoulder ER. Wall slides - Objective Findings Observations,measurements,etc.: Shoulder AAROM (flex) with pulleys in sittin degrees. Shoulder AAROM (flex) in supine with therapy wand: 140 degrees. Active shoulder flexion in sittin-55 degrees multiple attempts. Active shoulder flexion in supine: 62 degrees - Charges Timed Code Treatment Minutes: 29 Total Treatment Time: 49 Procedures billed for this date of service:: hp, ex2 Assessment: Patient progressing slowly with A and AAROM for the R UE. Improved functional tasks and now has started driving short distances without difficulty. Pain remains low and intermittent. Patient Education: Education of diagnosis, Body/Joint mechanics, Home Exercise Program Patient demonstrates compliance with HEP?: Yes Short Term Goals Goal #1: Right shoulder PROM flexion WFL's. Goal to be met by: 02/13/17 Progress towards Goal:: Progressing Goal #2: Passive right shoulder ER 30 degrees. Goal to be met by: 02/13/17 Progress towards Goal:: Progressing Comments:: Patient still only able to achieve neutral to 5 degrees Goal #3: Patient and spouse independent in home exercise program. Goal to be met by: 02/13/17 Progress towards Goal:: Progressing Goal #4: Pt to demonstrate good postural awareness. Goal to be met by: 02/13/17 Progress towards Goal:: Progressing Facility Maintenance Manager Goals Goal #1: Pt knows HEP and to continue ex's to maintain functional level at D/C. Goal to be met by: 03/11/17 Goal #2: Score on UE functional scale improved to less than 39% impairment. Goal to be met by: 03/11/17 Goal #3: Right shoulder AROM improved to allow pt to perform light ADL's & selfcare. Goal to be met by: 03/11/17 Goal #4: Pt to report right shoulder pain minimal with movement. Goal to be met by: 03/11/17 Plan PLAN OF CARE EXPIRES ON:: 03/11/17 ORDER # VISITS AND/OR THROUGH DATE: 03/11/17 PLAN: Patient to continue with therex to improve P and AROM.
--- NOTE | 2017-02-20 12:01 | RS.OPPTDN ---
Subjective Date of Note: 02/20/17 Visit #: 9 Date of Evaluation: 01/30/17 Payer Source: MEDICARE Treatment Diagnosis: Right shoulder stiffness, weakness, pain. Current Subjective/complaints:: Patient says she has been working on reaching at home being able to grasp headboard on her bed. Reports feeling good after her previous session this week. Iman says her follow up with Dr. Walters was moved to tomorrow after her PT session. She says she has not had much pain and says she rarely takes pain medication. Pain Assessment - Pain Description Pain Location: intermittent "soreness" - Heat/Cryotherapy Treatment: Hot Pack (20 mins to the R shoulder in sitting prior to therex) Interventions - Exercise/Activities/Manual Therapy Exercises/Activities: Passive flexion in sitting. Isometric shoulder flex, ext, add, abd, IR, and ER. Bilateral shoulder flexion with 1# wand, then short range IR/ER, and chest press x 10. Shoulder flexion contract/relax. Patient received passive right shoulder and long axis distraction, in supine. Manual isometrics for IR/ER and shoulder flexion/ext. Patient performs AAROM using wand for bilateral shoulder flexion and chest press. Forward serratus punch with 1# dumbell. Sitting bilateral ball squeezes for IR x 10, 1# wand for bilateral shoulder flexion. Standing: UBE for/retro x 1.5 mins each Total minutes of Exercise: 28 Manual Therapy: NA HOME EXERCISE PROGRAM: RTC series in pendulum position, wand for active assisted shoulder flexion and abduction, and self stretch in shoulder ER. Wall slides - Charges Timed Code Treatment Minutes: 28 Total Treatment Time: 48 Procedures billed for this date of service:: hp, ex2 Assessment: Patient progressing with increased PROM with the exception of ER. Actively slowly improving particularly with shoulder flexion. Patient mayo increased strengthening and began UBE. Patient Education: Education of diagnosis, Home Exercise Program Patient demonstrates compliance with HEP?: Yes Short Term Goals Goal #1: Right shoulder PROM flexion WFL's. Goal to be met by: 02/13/17 Progress towards Goal:: Met Comments:: Now averaging ~140 degrees Goal #2: Passive right shoulder ER 30 degrees. Goal to be met by: 02/13/17 Progress towards Goal:: Progressing Goal #3: Patient and spouse independent in home exercise program. Goal to be met by: 02/13/17 Progress towards Goal:: Met Goal #4: Pt to demonstrate good postural awareness. Goal to be met by: 02/13/17 Progress towards Goal:: Progressing Vendor Management Associate Goals Goal #1: Pt knows HEP and to continue ex's to maintain functional level at D/C. Goal to be met by: 03/11/17 Progress towards goal: Progressing Goal #2: Score on UE functional scale improved to less than 39% impairment. Goal to be met by: 03/11/17 Goal #3: Right shoulder AROM improved to allow pt to perform light ADL's & selfcare. Goal to be met by: 03/11/17 Goal #4: Pt to report right shoulder pain minimal with movement. Goal to be met by: 03/11/17 Plan PLAN OF CARE EXPIRES ON:: 03/11/17 ORDER # VISITS AND/OR THROUGH DATE: 03/11/17 PLAN: Patient to return to ortho tomorrow
--- NOTE | 2017-02-21 12:07 | RS.OPPTDN ---
Subjective Date of Note: 02/21/17 Visit #: 10 Date of Evaluation: 01/30/17 Payer Source: MEDICARE Treatment Diagnosis: Right shoulder stiffness, weakness, pain. Current Subjective/complaints:: Patient says she is eager to see her ortho today to see if she is continuing therapy. She reports no pain currently to the R shoulder and improved mobility, but mostly in supine. She says she can now carry a filled medium sized coffee mug. Iman says she is working on HEP constantly. Pain Assessment - Pain Description Pain Location: R upper arm (when present) - Heat/Cryotherapy Treatment: Hot Pack (20 mins along the R upper arm and shoulder prior to exercise sitting) Interventions - Exercise/Activities/Manual Therapy Exercises/Activities: Passive flexion in sitting. Isometric shoulder flex, ext, add, abd, IR, and ER. Bilateral shoulder flexion with 1# wand, then short range IR/ER, and chest press x 10. Shoulder flexion contract/relax. Patient received passive right shoulder and long axis distraction, in supine. Manual isometrics for IR/ER and shoulder flexion/ext. 5 and 7# digiflexors x 10. Patient performs AAROM using wand for bilateral shoulder flexion and chest press. Forward serratus punch with 1# dumbell. Standing and reaching/placing multiple cones at near shoulder height and challenging shoulder abd. UBE for/ retro x 4 mins standing. Assisted patient with UE Functional Index. Total minutes of Exercise: 38 Manual Therapy: NA HOME EXERCISE PROGRAM: RTC series in pendulum position, wand for active assisted shoulder flexion and abduction, and self stretch in shoulder ER. Wall slides - Objective Findings Observations,measurements,etc.: 37/80 or 54% impairment. EVAL: 27/80 or 66% impairment - Charges Timed Code Treatment Minutes: 38 Total Treatment Time: 58 Procedures billed for this date of service:: hp, ex3 Assessment: Improved Venetian Blind Worker from 5# to 20# today compared to EVAL. L UE is 35#. Improved PROM: Flexion to 139 degrees supine and ABD 132 degrees. Improved UE Functional Index from 66% impairment to 54% impairment Patient Education: Education of diagnosis, Home Exercise Program Patient demonstrates compliance with HEP?: Yes Short Term Goals Goal #1: Right shoulder PROM flexion WFL's. Goal to be met by: 02/13/17 Progress towards Goal:: Met Goal #2: Passive right shoulder ER 30 degrees. Goal to be met by: 02/13/17 Progress towards Goal:: Progressing Comments:: Very minimal passive ER Goal #3: Patient and spouse independent in home exercise program. Goal to be met by: 02/13/17 Progress towards Goal:: Met Goal #4: Pt to demonstrate good postural awareness. Goal to be met by: 02/13/17 Progress towards Goal:: Progressing Folder Operator Goals Goal #1: Pt knows HEP and to continue ex's to maintain functional level at D/C. Goal to be met by: 03/11/17 Progress towards goal: Progressing Goal #2: Score on UE functional scale improved to less than 39% impairment. Goal to be met by: 03/11/17 Progress towards goal: Progressing Comments: 54% currently Goal #3: Right shoulder AROM improved to allow pt to perform light ADL's & selfcare. Goal to be met by: 03/11/17 Goal #4: Pt to report right shoulder pain minimal with movement. Goal to be met by: 03/11/17 Plan PLAN OF CARE EXPIRES ON:: 03/11/17 ORDER # VISITS AND/OR THROUGH DATE: 03/11/17 PLAN: Progress therex to improve AROM as able and attend ortho appt this afternoon
--- NOTE | 2017-02-21 15:58 | RS.PTSUM ---
Progress Note/Summary Date of Note: 02/21/17 Date of Evaluation: 01/30/17 Number of Visits: 10 Reporting Period for this Progress Note: 01/30/17 through 02/21/17 Current Complaints/Gains: Patient denies pain on average. States she does not take pain medication. She is working on HEP consistently. She is now able to gerard/doff clothing and hold a filled coffee mug. Objective Measurements/Presentation: Active shoulder flexion to 55 degrees with compensation of the scapular muscles. Teacher Assistant on involved UE increased from 5 lbs. to 20 lbs. PROM: Flexion to 139 degrees supine and ABD 132 degrees. G Codes: selfcare current CK. selfcare goal CJ Source of G Code Score: 37/80=54% impairment - Short Term Goals Goal #1: Right shoulder PROM flexion WFL's. Goal to be met by: 02/13/17 Progress towards Goal:: Met Goal #2: Passive right shoulder ER 30 degrees. Goal to be met by: 02/13/17 Progress towards Goal:: Progressing Goal #3: Patient and spouse independent in home exercise program. Goal to be met by: 02/13/17 Progress towards Goal:: Met Goal #4: Pt to demonstrate good postural awareness. Goal to be met by: 02/13/17 Progress towards Goal:: Progressing - Gate Attendant Goals Goal #1: Pt knows HEP and to continue ex's to maintain functional level at D/C. Goal to be met by: 03/11/17 Progress towards goal: Progressing Goal #2: Score on UE functional scale improved to less than 39% impairment. Goal to be met by: 03/11/17 Progress towards goal: Progressing Goal #3: Right shoulder AROM improved to allow pt to perform light ADL's & selfcare. Goal to be met by: 03/11/17 Goal #4: Pt to report right shoulder pain minimal with movement. Goal to be met by: 03/11/17 - Assessment Assessment of Improvement/Progress: Patient with progress per subjective reports of increased use of the right (dominant) UE. She demonstrates marked limitation of functional AROM of the shoulder. She may be able to gain more functional use of the right UE with continued skilled therapy. Summary: Patient has made progress towards goals. - Plan Plan: Will request continuation of therapy sessions. PLAN OF CARE EXPIRES ON:: 03/11/17 ORDER # VISITS AND/OR THROUGH DATE: 03/11/17 (pending follow up appointment today )
--- NOTE | 2017-02-25 15:57 | RS.OPPTDN ---
Subjective Date of Note: 02/25/17 Visit #: 11 Date of Evaluation: 01/30/17 Payer Source: MEDICARE Treatment Diagnosis: Right shoulder stiffness, weakness, pain. Current Subjective/complaints:: Patient reports she saw Dr. Walters and he asked her if she wanted to do more therapy. She told him she wanted to be able to use her right UE like she could before surgery. He gave her an order to continue. Interventions - Exercise/Activities/Manual Therapy Exercises/Activities: Patient received stretching in all directions to the right shoulder. Performed contract/relax technique to facilitate increased PROM. Isometric shoulder flex, ext, add, abd, IR, and ER. Bilateral shoulder flexion with 1# wand, then short range IR/ER, and chest press x 10. Patient received passive right shoulder and long axis distraction, in supine. Manual isometrics for IR/ER and shoulder flexion/ext. 5 and 7# digiflexors x 10. Patient performs AAROM using wand for bilateral shoulder flexion and chest press. Forward serratus punch with yellow theraband. Performed on finger ladder for AAROM into shoulder flexion. UBE for/retro x 4 mins standing. Patient given red theraputty for home use and yellow and red theraband for serratus anterior punch, shoulder ER, elbow flexion, and wrist flex/extension. Total minutes of Exercise: 34 mins Manual Therapy: NA HOME EXERCISE PROGRAM: RTC series in pendulum position, wand for active assisted shoulder flexion and abduction, and self stretch in shoulder ER. Wall slides. red theraputty for home use and yellow and red theraband for serratus anterior punch, shoulder ER, elbow flexion, and wrist flex/extension. - Charges Timed Code Treatment Minutes: 34 mins Total Treatment Time: 49 mins Procedures billed for this date of service:: HP, EX2 Assessment: Patient has a very good tolerance of stretching and performing exercises in the department. She is very motivated to gain as much functional use of the right UE as she can. She demonstrates potential to gain more active motion of the right UE to use the right UE for more selfcare and light ADL's. Patient Education: Education of diagnosis, Home Exercise Program Patient demonstrates compliance with HEP?: Yes Short Term Goals Goal #1: Right shoulder PROM flexion WFL's. Goal to be met by: 02/13/17 Progress towards Goal:: Met Goal #2: Passive right shoulder ER 30 degrees. Goal to be met by: 03/11/17 Progress towards Goal:: Progressing Goal #3: Patient and spouse independent in home exercise program. Goal to be met by: 02/13/17 Progress towards Goal:: Met Goal #4: Pt to demonstrate good postural awareness. Goal to be met by: 03/11/17 Progress towards Goal:: Progressing Plating And Point Assembly Supervisor Goals Goal #1: Pt knows HEP and to continue ex's to maintain functional level at D/C. Goal to be met by: 03/27/17 Progress towards goal: Progressing Goal #2: Score on UE functional scale improved to less than 39% impairment. Goal to be met by: 03/27/17 Progress towards goal: Progressing Goal #3: Right shoulder AROM improved to allow pt to perform light ADL's & selfcare. Goal to be met by: 03/27/17 Goal #4: Pt to report right shoulder pain minimal with movement. Goal to be met by: 03/27/17 Plan PLAN OF CARE EXPIRES ON:: 03/27/17 ORDER # VISITS AND/OR THROUGH DATE: 03/27/17 PLAN: Progress functional activities and strenthening exercises.
--- NOTE | 2017-02-27 13:35 | RS.OPPTDN ---
Subjective Date of Note: 02/27/17 Visit #: 12 Date of Evaluation: 01/30/17 Payer Source: MEDICARE Treatment Diagnosis: Right shoulder stiffness, weakness, pain. Current Subjective/complaints:: Patient says she is able to lift her arm higher while laying down, but sees no real improvement in standing. She reports she will return to the ortho in 6 more weeks. - Heat/Cryotherapy Treatment: Hot Pack (20 mins to the R shoulder in sitting) Interventions - Exercise/Activities/Manual Therapy Exercises/Activities: Patient received stretching in all directions to the right shoulder. Performed contract/relax technique to facilitate increased PROM. Isometric shoulder flex, ext, add, abd, IR, and ER. Bilateral shoulder flexion with 1# wand, then short range IR/ER, and chest press x 10. Patient received passive right shoulder and long axis distraction, in supine. Manual isometrics for IR/ER and shoulder flexion/ext. 5 and 7# digiflexors x 10. Increased to 2# PRE's for biceps, punches 2x10. Patient performs AAROM using wand for bilateral shoulder flexion and chest press. Forward serratus punch with yellow theraband. Active shoulder flexion with elbow extension multiple reps. Performed on finger ladder for AAROM into shoulder flexion. Total minutes of Exercise: 33 Manual Therapy: NA HOME EXERCISE PROGRAM: RTC series in pendulum position, wand for active assisted shoulder flexion and abduction, and self stretch in shoulder ER. Wall slides. red theraputty for home use and yellow and red theraband for serratus anterior punch, shoulder ER, elbow flexion, and wrist flex/extension. - Charges Timed Code Treatment Minutes: 33 Total Treatment Time: 53 Procedures billed for this date of service:: hp, ex2 Assessment: Patient progressing with strengthening exercises slowly. Active motion improving in supine, but remains with limitation and scapular compensation against gravity. Patient Education: Education of diagnosis, Home Exercise Program Patient demonstrates compliance with HEP?: Yes Short Term Goals Goal #1: Right shoulder PROM flexion WFL's. Goal to be met by: 02/13/17 Progress towards Goal:: Met Goal #2: Passive right shoulder ER 30 degrees. Goal to be met by: 03/11/17 Progress towards Goal:: Progressing Goal #3: Patient and spouse independent in home exercise program. Goal to be met by: 02/13/17 Progress towards Goal:: Met Goal #4: Pt to demonstrate good postural awareness. Goal to be met by: 03/11/17 Progress towards Goal:: Progressing Diet Counselor Goals Goal #1: Pt knows HEP and to continue ex's to maintain functional level at D/C. Goal to be met by: 03/27/17 Progress towards goal: Progressing Goal #2: Score on UE functional scale improved to less than 39% impairment. Goal to be met by: 03/27/17 Progress towards goal: Progressing Goal #3: Right shoulder AROM improved to allow pt to perform light ADL's & selfcare. Goal to be met by: 03/27/17 Goal #4: Pt to report right shoulder pain minimal with movement. Goal to be met by: 03/27/17 Plan PLAN OF CARE EXPIRES ON:: 03/27/17 ORDER # VISITS AND/OR THROUGH DATE: 03/27/17 PLAN: Patient to progress with therex for PROM and AROM
--- NOTE | 2017-02-28 12:02 | RS.OPPTDN ---
Subjective Date of Note: 02/28/17 Visit #: 13 Date of Evaluation: 01/30/17 Payer Source: MEDICARE Treatment Diagnosis: Right shoulder stiffness, weakness, pain. Current Subjective/complaints:: Patient reports that she is working on pulleys at home that her installed. She says she wants to get back more active shoulder motion and hopeful more therapy will help. - Heat/Cryotherapy Treatment: Hot Pack (20 mins to the R shoulder in sitting) Interventions - Exercise/Activities/Manual Therapy Exercises/Activities: Patient received stretching in all directions to the right shoulder. Performed contract/relax technique to facilitate increased PROM. Isometric shoulder flex, ext, add, abd, IR, and ER. Bilateral shoulder flexion increased to 2# wand, then short range IR/ER, and chest press x 10. Patient received passive right shoulder and long axis distraction, in supine. Manual isometrics for IR/ER and shoulder flexion/ext. 5 and 7# digiflexors x 10. Continued with 2# PRE's for biceps, punches 2x10. Patient performs AAROM using wand for bilateral shoulder flexion and chest press. Forward serratus punch increased red theraband. Active shoulder flexion with elbow extension multiple reps. Performed on finger ladder for AAROM into shoulder flexion. Total minutes of Exercise: 34 Manual Therapy: NA HOME EXERCISE PROGRAM: RTC series in pendulum position, wand for active assisted shoulder flexion and abduction, and self stretch in shoulder ER. Wall slides. red theraputty for home use and yellow and red theraband for serratus anterior punch, shoulder ER, elbow flexion, and wrist flex/extension. - Charges Timed Code Treatment Minutes: 34 Total Treatment Time: 54 Procedures billed for this date of service:: hp, ex2 Assessment: Patient demo increased passive flexion in supine from 139 to 145 today and ABD from 132 to 140. Active flexion/ABD still very limited to now ~ 58 degrees. 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 Patient Education: Home Exercise Program Patient demonstrates compliance with HEP?: Yes Short Term Goals Goal #1: Right shoulder PROM flexion WFL's. Goal to be met by: 02/13/17 Progress towards Goal:: Met Goal #2: Passive right shoulder ER 30 degrees. Goal to be met by: 03/11/17 Progress towards Goal:: Progressing Goal #3: Patient and spouse independent in home exercise program. Goal to be met by: 02/13/17 Progress towards Goal:: Met Goal #4: Pt to demonstrate good postural awareness. Goal to be met by: 03/11/17 Progress towards Goal:: Progressing Medical Lead Goals Goal #1: Pt knows HEP and to continue ex's to maintain functional level at D/C. Goal to be met by: 03/27/17 Progress towards goal: Progressing Goal #2: Score on UE functional scale improved to less than 39% impairment. Goal to be met by: 03/27/17 Progress towards goal: Progressing Goal #3: Right shoulder AROM improved to allow pt to perform light ADL's & selfcare. Goal to be met by: 03/27/17 Progress towards goal: Progressing Goal #4: Pt to report right shoulder pain minimal with movement. Goal to be met by: 03/27/17 Plan PLAN OF CARE EXPIRES ON:: 03/27/17 ORDER # VISITS AND/OR THROUGH DATE: 03/27/17 PLAN: Patient to continue to progress for possible improvement with active shoulder flex/abd.
== END 2017-03-02 ==
PROVIDERS: ATTEND Orthopaedic Surgery
DX: M25.511 Pain in right shoulder (principal); M25.611 Stiffness of right shoulder, not elsewhere classified; M62.81 Muscle weakness (generalized); Z47.89 Encounter for other orthopedic aftercare; Z98.890 Other specified postprocedural states

== ENCOUNTER 2017-03-26 10:00 | Outpatient (RCR) | payer OTHER ==
[2012-08-26 22:58] VITALS: TEMP 97.5
--- NOTE | 2017-03-04 10:13 | RS.CXNS ---
Date of scheduled appointment: 03/04/17 Type: Rescheduled Reason for Cancel/NS: Patient's cancels appt and is rescheduling
--- NOTE | 2017-03-05 14:23 | RS.OPPTDN ---
Subjective Date of Note: 03/05/17 Visit #: 14 Date of Evaluation: 01/30/17 Payer Source: MEDICARE Treatment Diagnosis: Right shoulder stiffness, weakness, pain. Current Subjective/complaints:: Patient asks if her shoulder is going to ever be "normal." She reports that her MD did not say anything about another surgery , but she will be asking him at her next appt. - Heat/Cryotherapy Treatment: Hot Pack (20 mins to the R shoulder in sitting) Interventions - Exercise/Activities/Manual Therapy Exercises/Activities: Patient received stretching in all directions to the right shoulder. Performed contract/relax technique to facilitate increased PROM. Isometric shoulder flex, ext, add, abd, IR, and ER. Bilateral shoulder flexion 2# wand with static holds at end ranges, then short range IR/ER, and chest press x 10. Patient received passive right shoulder and long axis distraction, in supine. Manual isometrics for IR/ER and shoulder flexion/ext. Continued with 2# PRE's for biceps, punches 2x10. Forward serratus punch red theraband x 10 in sitting. Active shoulder flexion with elbow extension multiple reps. Performed on finger ladder for AAROM into shoulder flexion. Total minutes of Exercise: 30 Manual Therapy: NA HOME EXERCISE PROGRAM: RTC series in pendulum position, wand for active assisted shoulder flexion and abduction, and self stretch in shoulder ER. Wall slides. red theraputty for home use and yellow and red theraband for serratus anterior punch, shoulder ER, elbow flexion, and wrist flex/extension. - Charges Timed Code Treatment Minutes: 30 Total Treatment Time: 50 Procedures billed for this date of service:: hp, ex2 Assessment: Patient progressing with PROM, but no significant difference with active motion in other positions besides supine. She is compliant with HEP and progressing with activity mayo and strengthening to the R UE. Patient Education: Home Exercise Program Patient demonstrates compliance with HEP?: Yes Short Term Goals Goal #1: Right shoulder PROM flexion WFL's. Goal to be met by: 02/13/17 Progress towards Goal:: Met Goal #2: Passive right shoulder ER 30 degrees. Goal to be met by: 03/11/17 Progress towards Goal:: Progressing Goal #3: Patient and spouse independent in home exercise program. Goal to be met by: 02/13/17 Progress towards Goal:: Met Goal #4: Pt to demonstrate good postural awareness. Goal to be met by: 03/11/17 Progress towards Goal:: Progressing Expressive Music Therapist Goals Goal #1: Pt knows HEP and to continue ex's to maintain functional level at D/C. Goal to be met by: 03/27/17 Progress towards goal: Progressing Goal #2: Score on UE functional scale improved to less than 39% impairment. Goal to be met by: 03/27/17 Progress towards goal: Progressing Goal #3: Right shoulder AROM improved to allow pt to perform light ADL's & selfcare. Goal to be met by: 03/27/17 Progress towards goal: Progressing Goal #4: Pt to report right shoulder pain minimal with movement. Goal to be met by: 03/27/17 Plan PLAN OF CARE EXPIRES ON:: 03/27/17 ORDER # VISITS AND/OR THROUGH DATE: 03/27/17 PLAN: Continue with ROM to possibly improve some shoulder flexion against gravity to assist with ADLs.
--- NOTE | 2017-03-06 11:48 | RS.OPPTDN ---
Subjective Date of Note: 03/06/17 Visit #: 14 Date of Evaluation: 01/30/17 Payer Source: MEDICARE Treatment Diagnosis: Right shoulder stiffness, weakness, pain. Current Subjective/complaints:: Patient says she continues to work on exercising her arm and trying to use it against gravity. She says she is taking prescription pain reliever at bedtime sporadically. She expresses anxiety and frustration about not having full ROM. Pain Assessment - Pain Description Pain Location: Hurts mostly at bedtime and only mildly at end range flex, ER. - Heat/Cryotherapy Treatment: Hot Pack (20 mins to the R shoulder in sitting) Interventions - Exercise/Activities/Manual Therapy Exercises/Activities: Patient received stretching in all directions to the right shoulder. Continued with contract/relax for flexion, abd, and ER. Isometric shoulder flex, ext, add, abd, IR, and ER. Bilateral shoulder flexion 2# wand with static holds at end ranges, then short range IR/ER, and chest press x 10. Patient received passive right shoulder and long axis distraction , in supine. Manual isometrics for IR/ER and shoulder flexion/ext. Continued with 2# PRE's for biceps, punches 2x10. 1# dumbell for short range shoulder flexion in supine x 10. Forward serratus punch red theraband x 10 in sitting. Performed on finger ladder for AAROM into shoulder flexion. Sitting: red tband for scap retraction, 2# wand for short range bilateral shoulder flexion, no weight for shoulder ABD with wand, reviewed and progressed HEP with new handouts and discussed to perform 2-3 times daily. Increased time spent on education of diagnosis, POC, and HeP. Total minutes of Exercise: 38 Manual Therapy: NA HOME EXERCISE PROGRAM: RTC series in pendulum position, wand for active assisted shoulder flexion and abduction, and self stretch in shoulder ER. Wall slides. red theraputty for home use and yellow and red theraband for serratus anterior punch, shoulder ER, elbow flexion, and wrist flex/extension. - Charges Timed Code Treatment Minutes: 38 Total Treatment Time: 58 Procedures billed for this date of service:: maurizio, ex3 Assessment: Patient has demo increased passive ER in supine to ~20 degrees today also shows some improvement with active flexion, but continues to be only in supine. Patient Education: Education of diagnosis, Home Exercise Program Patient demonstrates compliance with HEP?: Yes Short Term Goals Goal #1: Right shoulder PROM flexion WFL's. Goal to be met by: 02/13/17 Progress towards Goal:: Met Goal #2: Passive right shoulder ER 30 degrees. Goal to be met by: 03/11/17 Progress towards Goal:: Progressing Goal #3: Patient and spouse independent in home exercise program. Goal to be met by: 02/13/17 Progress towards Goal:: Met Goal #4: Pt to demonstrate good postural awareness. Goal to be met by: 03/11/17 Progress towards Goal:: Progressing Half-Way Goals Goal #1: Pt knows HEP and to continue ex's to maintain functional level at D/C. Goal to be met by: 03/27/17 Progress towards goal: Progressing Goal #2: Score on UE functional scale improved to less than 39% impairment. Goal to be met by: 03/27/17 Progress towards goal: Progressing Goal #3: Right shoulder AROM improved to allow pt to perform light ADL's & selfcare. Goal to be met by: 03/27/17 Progress towards goal: Progressing Goal #4: Pt to report right shoulder pain minimal with movement. Goal to be met by: 03/27/17 Plan PLAN OF CARE EXPIRES ON:: 03/27/17 ORDER # VISITS AND/OR THROUGH DATE: 03/27/17 PLAN: Patient to continue to advance in therex improving functional ROM until she returns to ortho ~2 weeks.
--- NOTE | 2017-03-07 11:56 | RS.OPPTDN ---
Subjective Date of Note: 03/07/17 Visit #: 16 Date of Evaluation: 01/30/17 Payer Source: MEDICARE Treatment Diagnosis: Right shoulder stiffness, weakness, pain. Current Subjective/complaints:: Patient says she performed all HEP yesterday after she had gotten home from therapy as well as this morning prior to coming in. She says she is noticing slow improvement in active motion, but would like to be able to continue therapy to have more normalized motion. Pain Assessment - Pain Description Pain Location: none at present - Heat/Cryotherapy Treatment: Hot Pack (20 mins to the R shoulder in sitting) Interventions - Exercise/Activities/Manual Therapy Exercises/Activities: Patient received stretching in all directions to the right shoulder. Continued with contract/relax for flexion, abd, and ER. Isometric shoulder flex, ext, add, abd, IR, and ER. Bilateral shoulder flexion 2# wand with static holds at end ranges, then short range IR/ER, and chest press x 10. Patient received passive right shoulder and long axis distraction , in supine. Manual isometrics for IR/ER and shoulder flexion/ext. Continued with 2# PRE's for biceps, punches 2x10. 1# dumbell for short range shoulder flexion in supine x 10. Forward serratus punch red theraband 2 x 10 in sitting. Performed on finger ladder for AAROM into shoulder flexion. Sitting : red tband for scap retraction, 2# wand for short range bilateral shoulder flexion, 1# dumbell for standing short range shoulder flexion and abd x 10. Ball on the wall counter and clockwise x 10. Wall slides forward and pushing into abd x 3. Total minutes of Exercise: 38 Manual Therapy: NA HOME EXERCISE PROGRAM: RTC series in pendulum position, wand for active assisted shoulder flexion and abduction, and self stretch in shoulder ER. Wall slides. red theraputty for home use and yellow and red theraband for serratus anterior punch, shoulder ER, elbow flexion, and wrist flex/extension. - Objective Findings Observations,measurements,etc.: Supine Active flexion to 157 degrees, ABD 135. Passive ER to 52. AA flexion with wand to 170 with less scapular compensation compared to previous week. - Charges Timed Code Treatment Minutes: 38 Total Treatment Time: 58 Procedures billed for this date of service:: hp, ex3 Assessment: Improved A and PROM this week. Patient more compliant with HEP and motivated to gain further AROM to improve ADLs and household tasks. She presents to dept independent amb without cane. Patient Education: Education of diagnosis, Home Exercise Program, Education of Plan of Care Patient demonstrates compliance with HEP?: Yes Short Term Goals Goal #1: Right shoulder PROM flexion WFL's. Goal to be met by: 02/13/17 Progress towards Goal:: Met Comments:: FLEX AND ABD Goal #2: Passive right shoulder ER 30 degrees. Goal to be met by: 03/11/17 Progress towards Goal:: Met Comments:: 52 today Goal #3: Patient and spouse independent in home exercise program. Goal to be met by: 02/13/17 Progress towards Goal:: Met Goal #4: Pt to demonstrate good postural awareness. Goal to be met by: 03/11/17 Progress towards Goal:: Met Mcc Goals Goal #1: Pt knows HEP and to continue ex's to maintain functional level at D/C. Goal to be met by: 03/27/17 Progress towards goal: Progressing Goal #2: Score on UE functional scale improved to less than 39% impairment. Goal to be met by: 03/27/17 Progress towards goal: Progressing Comments: REassess next week Goal #3: Right shoulder AROM improved to allow pt to perform light ADL's & selfcare. Goal to be met by: 03/27/17 Progress towards goal: Progressing Goal #4: Pt to report right shoulder pain minimal with movement. Goal to be met by: 03/27/17 Progress towards goal: Met Plan PLAN OF CARE EXPIRES ON:: 03/27/17 ORDER # VISITS AND/OR THROUGH DATE: 03/27/17 PLAN: Patient to continue to improve AROM to the R shoulder x 2 more weeks
--- NOTE | 2017-03-10 14:43 | RS.OPPTDN ---
Subjective Date of Note: 03/10/17 Visit #: 17 Date of Evaluation: 01/30/17 Payer Source: MEDICARE Treatment Diagnosis: Right shoulder stiffness, weakness, pain. Current Subjective/complaints:: Patient states she does not have a follow up with Dr. Walters. She says she continues to see improvement with reaching and strength. - Heat/Cryotherapy Treatment: Hot Pack (15 mins ) Interventions - Exercise/Activities/Manual Therapy Exercises/Activities: Patient received stretching in all directions to the right shoulder. Manual isometrics x 10 all directions supine. 3# PRE's for elbow and wrist, 2# for punches and short range shoulder flexion in supine all 2x10. 3# wand for bilateral shoulder flexion and chest presses with weight being distributed through the R shoulder. Green tband for pull downs and bilateral shoulder abd in supine x 10. Sittin# wand for bilateral shoulder flexion, short ranges 2# for shoulder flexion and abd in standing x 10. Green tband for scap retraction x 10. Further AROM with passive overpressures for flexion and abd in sitting. Standing: shelf reaching with 2 # ball for bilateral reach trunk to overhead x 12, then single reach with 2# x 8. Static reaching with R. Manual Therapy: NA HOME EXERCISE PROGRAM: RTC series in pendulum position, wand for active assisted shoulder flexion and abduction, and self stretch in shoulder ER. Wall slides. red theraputty for home use and yellow and red theraband for serratus anterior punch, shoulder ER, elbow flexion, and wrist flex/extension. - Charges Timed Code Treatment Minutes: 38 Total Treatment Time: 53 Procedures billed for this date of service:: hp, ex3 Assessment: Patient mirian increased Active flexion with reaching activity using weight multiple times before fatigueing at shelf activity. She demo PROM near WNL for flex and abd, ER ~50% currently. Supervisor [employer] has improved to 27# (at 10th visit measured 20#) which non dominant hand is 35. Patient Education: Home Exercise Program Patient demonstrates compliance with HEP?: Yes Short Term Goals Goal #1: Right shoulder PROM flexion WFL's. Goal to be met by: 02/13/17 Progress towards Goal:: Met Goal #2: Passive right shoulder ER 30 degrees. Goal to be met by: 03/11/17 Progress towards Goal:: Met Goal #3: Patient and spouse independent in home exercise program. Goal to be met by: 02/13/17 Progress towards Goal:: Met Goal #4: Pt to demonstrate good postural awareness. Goal to be met by: 03/11/17 Progress towards Goal:: Met Line Tender Flakeboard Goals Goal #1: Pt knows HEP and to continue ex's to maintain functional level at D/C. Goal to be met by: 03/27/17 Progress towards goal: Progressing Goal #2: Score on UE functional scale improved to less than 39% impairment. Goal to be met by: 03/27/17 Progress towards goal: Progressing Goal #3: Right shoulder AROM improved to allow pt to perform light ADL's & selfcare. Goal to be met by: 03/27/17 Progress towards goal: Progressing Goal #4: Pt to report right shoulder pain minimal with movement. Goal to be met by: 03/27/17 Progress towards goal: Met Plan PLAN OF CARE EXPIRES ON:: 03/27/17 ORDER # VISITS AND/OR THROUGH DATE: 03/27/17 PLAN: Patient to continue until 03/27/17 per Medicare LTG. Follow up with ortho 04/04/17.
--- NOTE | 2017-03-12 11:27 | RS.OPPTDN ---
Subjective Date of Note: 03/12/17 Visit #: 18 Date of Evaluation: 01/30/17 Payer Source: MEDICARE Treatment Diagnosis: Right shoulder stiffness, weakness, pain. Current Subjective/complaints:: Patient says she has already performed HEP this morning. States her shoulder is a little stiff, but says she is ready to work on harder exercises. Interventions - Exercise/Activities/Manual Therapy Exercises/Activities: Patient received stretching in all directions to the right shoulder. Manual isometrics x 10 all directions supine. 3# PRE's for elbow and wrist, 2# for punches and short range shoulder flexion in supine all 2x10. 3# wand for bilateral shoulder flexion and chest presses with weight being distributed through the R shoulder. Green tband for pull downs and bilateral shoulder abd in supine x 10. Sittin# wand for bilateral shoulder flexion, short ranges 2# for shoulder flexion and abd in standing x 10. Green tband for scap retraction x 10. Further AROM with passive overpressures for flexion and abd in sitting. Standing: shelf reaching with 3 # wand for bilateral reach trunk to overhead x 12, then single reach with 2# x 8. Static reaching with R. Active shoulder abd and flex with eccentric contractions in standing x 5. Total minutes of Exercise: 45 Manual Therapy: NA HOME EXERCISE PROGRAM: RTC series in pendulum position, wand for active assisted shoulder flexion and abduction, and self stretch in shoulder ER. Wall slides. red theraputty for home use and yellow and red theraband for serratus anterior punch, shoulder ER, elbow flexion, and wrist flex/extension. - Charges Timed Code Treatment Minutes: 45 Total Treatment Time: 45 Procedures billed for this date of service:: ex3 Assessment: Patient progressing slowly with strength and ROM above shoulder height, but requires AAROM to get above 90 degrees in standing before she can perform these tasks. She is able to achieve WFL in supine actively, but continues to compensate in sitting/standing. Patient Education: Education of diagnosis, Home Exercise Program, Education of Plan of Care Patient demonstrates compliance with HEP?: Yes Short Term Goals Goal #1: Right shoulder PROM flexion WFL's. Goal to be met by: 02/13/17 Progress towards Goal:: Met Goal #2: Passive right shoulder ER 30 degrees. Goal to be met by: 03/11/17 Progress towards Goal:: Met Goal #3: Patient and spouse independent in home exercise program. Goal to be met by: 02/13/17 Progress towards Goal:: Met Goal #4: Pt to demonstrate good postural awareness. Goal to be met by: 03/11/17 Progress towards Goal:: Met Retirement Goals Goal #1: Pt knows HEP and to continue ex's to maintain functional level at D/C. Goal to be met by: 03/27/17 Progress towards goal: Progressing Goal #2: Score on UE functional scale improved to less than 39% impairment. Goal to be met by: 03/27/17 Progress towards goal: Progressing Goal #3: Right shoulder AROM improved to allow pt to perform light ADL's & selfcare. Goal to be met by: 03/27/17 Progress towards goal: Progressing Goal #4: Pt to report right shoulder pain minimal with movement. Goal to be met by: 03/27/17 Progress towards goal: Met Plan PLAN OF CARE EXPIRES ON:: 03/27/17 ORDER # VISITS AND/OR THROUGH DATE: 03/27/17 PLAN: Patient to continue to progress mobility actively to assist with ADLs and household tasks.
--- NOTE | 2017-03-17 11:49 | RS.OPPTDN ---
Subjective Date of Note: 03/17/17 Visit #: 19 Date of Evaluation: 01/30/17 Payer Source: MEDICARE Treatment Diagnosis: Right shoulder stiffness, weakness, pain. Current Subjective/complaints:: Patient c/o stiffness to the R shoulder today despite performing HEP prior to coming to PT appt. She requests hot pack. Pain Assessment - Pain Description Pain Location: c/o stiffness rather than pain - Heat/Cryotherapy Treatment: Hot Pack (20 mins to the R shoulder in sitting) Interventions - Exercise/Activities/Manual Therapy Exercises/Activities: Patient received stretching in all directions to the right shoulder. Manual isometrics x 10 all directions supine. 3# PRE's for elbow and wrist, 2# for punches and short range shoulder flexion in supine all 2x10. Increased to 5# wand for bilateral shoulder flexion and chest presses with weight being distributed through the R shoulder. Short range shoulder flexion with 3# dumbell multiple reps. Green tband for pull downs and bilateral shoulder abd in supine x 10. Sittin# wand for bilateral shoulder flexion, short ranges 2# for shoulder flexion and abd in standing x 10. Green tband for scap retraction x 10. Further AROM with passive overpressures for flexion and abd in sitting. Standing: shelf reaching with 3 # wand for bilateral reach trunk to overhead x 12, then single reach with 2# x 8. Static reaching with R. Active shoulder abd and flex with eccentric contractions in standing x 5. Standing: Green tband pull downs on multigym x 20, ended with 3# pendulum for flexion and abd. Total minutes of Exercise: 47 Manual Therapy: NA HOME EXERCISE PROGRAM: RTC series in pendulum position, wand for active assisted shoulder flexion and abduction, and self stretch in shoulder ER. Wall slides. red theraputty for home use and yellow and red theraband for serratus anterior punch, shoulder ER, elbow flexion, and wrist flex/extension. - Charges Timed Code Treatment Minutes: 47 Total Treatment Time: 67 Procedures billed for this date of service:: maurizio, ex3 Assessment: Patient presents with increased stiffness to the R shoulder, but does improve with several mins into PROM/stretch/isometrics. She amb with straight cane due to snow and icy weather. Patient appears to compensate slightly less with shoulder elevation when compared to last week. She is very compliant with HEP at this stage. Patient Education: Home Exercise Program Patient demonstrates compliance with HEP?: Yes Short Term Goals Goal #1: Right shoulder PROM flexion WFL's. Goal to be met by: 02/13/17 Progress towards Goal:: Met Goal #2: Passive right shoulder ER 30 degrees. Goal to be met by: 03/11/17 Progress towards Goal:: Met Goal #3: Patient and spouse independent in home exercise program. Goal to be met by: 02/13/17 Progress towards Goal:: Met Goal #4: Pt to demonstrate good postural awareness. Goal to be met by: 03/11/17 Progress towards Goal:: Met Penitentiary Goals Goal #1: Pt knows HEP and to continue ex's to maintain functional level at D/C. Goal to be met by: 03/27/17 Progress towards goal: Progressing Goal #2: Score on UE functional scale improved to less than 39% impairment. Goal to be met by: 03/27/17 Progress towards goal: Progressing Goal #3: Right shoulder AROM improved to allow pt to perform light ADL's & selfcare. Goal to be met by: 03/27/17 Progress towards goal: Progressing Goal #4: Pt to report right shoulder pain minimal with movement. Goal to be met by: 03/27/17 Progress towards goal: Met Plan PLAN OF CARE EXPIRES ON:: 03/27/17 ORDER # VISITS AND/OR THROUGH DATE: 03/27/17 PLAN: Continue to progress exercises to improve AROM
--- NOTE | 2017-03-19 11:39 | RS.OPPTDN ---
Subjective Date of Note: 03/19/17 Visit #: 20 Date of Evaluation: 01/30/17 Payer Source: MEDICARE Treatment Diagnosis: Right shoulder stiffness, weakness, pain. Current Subjective/complaints:: Patient says she is able to reach back to put her jacket on/off now. - Heat/Cryotherapy Treatment: Hot Pack (15 mins to the R shoulder in sitting) Interventions - Exercise/Activities/Manual Therapy Exercises/Activities: Patient received stretching in all directions to the right shoulder. Manual isometrics x 10 all directions supine. Increased to 4 # PRE's for elbow and wrist, Increased to 3# for punches and short range shoulder flexion in supine all 2x10. Continued with 5# wand for bilateral shoulder flexion and chest presses with weight being distributed through the R shoulder. Short range shoulder flexion with 3# dumbell multiple reps. Green tband for pull downs and bilateral shoulder abd in supine x 10. Sittin# wand for bilateral shoulder flexion, short ranges 2# for shoulder flexion and abd in standing x 10. Green tband for scap retraction x 10. Further AROM with passive overpressures for flexion and abd in sitting. Standing: shelf reaching with 3# wand for bilateral reach trunk to overhead x 12, then single reach with 2# x 8. Static reaching with R. Active shoulder abd and flex with eccentric contractions in standing x 5. Standing: throwing ball and catching against the wall and bouncing on the floor, throwing to DESIGN DIRECTOR and catching. Total minutes of Exercise: 38 Manual Therapy: NA HOME EXERCISE PROGRAM: RTC series in pendulum position, wand for active assisted shoulder flexion and abduction, and self stretch in shoulder ER. Wall slides. red theraputty for home use and yellow and red theraband for serratus anterior punch, shoulder ER, elbow flexion, and wrist flex/extension. - Charges Timed Code Treatment Minutes: 38 Total Treatment Time: 53 Procedures billed for this date of service:: hp, ex3 Assessment: Demo increased IR to gerard and doff jacket. Improved ability to mayo progressed activity involving active flexion. Patient Education: Education of diagnosis, Home Exercise Program Patient demonstrates compliance with HEP?: Yes Short Term Goals Goal #1: Right shoulder PROM flexion WFL's. Goal to be met by: 02/13/17 Progress towards Goal:: Met Goal #2: Passive right shoulder ER 30 degrees. Goal to be met by: 03/11/17 Progress towards Goal:: Met Goal #3: Patient and spouse independent in home exercise program. Goal to be met by: 02/13/17 Progress towards Goal:: Met Goal #4: Pt to demonstrate good postural awareness. Goal to be met by: 03/11/17 Progress towards Goal:: Met Halfway Goals Goal #1: Pt knows HEP and to continue ex's to maintain functional level at D/C. Goal to be met by: 03/27/17 Progress towards goal: Progressing Goal #2: Score on UE functional scale improved to less than 39% impairment. Goal to be met by: 03/27/17 Progress towards goal: Progressing Goal #3: Right shoulder AROM improved to allow pt to perform light ADL's & selfcare. Goal to be met by: 03/27/17 Progress towards goal: Progressing Goal #4: Pt to report right shoulder pain minimal with movement. Goal to be met by: 03/27/17 Progress towards goal: Met Plan PLAN OF CARE EXPIRES ON:: 03/27/17 ORDER # VISITS AND/OR THROUGH DATE: 03/27/17 PLAN: Continue to progress AROM as able into next week.
--- NOTE | 2017-03-20 10:26 | RS.PTSUM ---
Progress Note/Summary Date of Note: 03/19/17 Date of Evaluation: 01/30/17 Number of Visits: 20 Reporting Period for this Progress Note: 01/30/17 to 03/19/17 Current Complaints/Gains: Patient reports low pain with stretching now. Reports no pain at rest. States she can now bring her Right arm behind her enough to place in and out of the jacket sleeve. Reports being compliant with HEP and she feels she is gaining strength, but she is frustrated about not gaining active flexion. Objective Measurements/Presentation: Demonstrates minimal improvement with active shoulder flexion and gaining strength against gravity and in supine. Improved functional tasks and ADL's. Patient is able to perform full active flexion in supine, but unable to while sitting or standing. G Codes: Selfcare current CJ. Selfcare goal CJ Source of G Code Score: UE functional 49/80=39% impairment - Short Term Goals Goal #1: Right shoulder PROM flexion WFL's. Goal to be met by: 02/13/17 Progress towards Goal:: Met Goal #2: Passive right shoulder ER 30 degrees. Goal to be met by: 03/11/17 Progress towards Goal:: Met Goal #3: Patient and spouse independent in home exercise program. Goal to be met by: 02/13/17 Progress towards Goal:: Met Goal #4: Pt to demonstrate good postural awareness. Goal to be met by: 03/11/17 Progress towards Goal:: Met - Long-Term Goals Goal #1: Pt knows HEP and to continue ex's to maintain functional level at D/C. Goal to be met by: 03/27/17 Progress towards goal: Progressing Goal #2: Score on UE functional scale improved to less than 39% impairment. Goal to be met by: 03/27/17 Progress towards goal: Progressing Goal #3: Right shoulder AROM improved to allow pt to perform light ADL's & selfcare. Goal to be met by: 03/27/17 Progress towards goal: Progressing Goal #4: Pt to report right shoulder pain minimal with movement. Goal to be met by: 03/27/17 Progress towards goal: Met - Assessment Assessment of Improvement/Progress: Patient has made some improvement with shoulder ROM and strength, but functional use of the right UE remains limited due to being unable to actively raise the arm against gravity high enough to perform meaningful, functional reaching. She will benefit from another week of therapy for continued strengthening and to educate on progression of exercises with current HEP. Patient informed that beyond another week, further skilled therapy would not be indicated. Summary: Patient has made progress towards goals. - Plan Plan: Complete remaining visits on current order. Frequency: 2-3 X week Duration: 1 week PLAN OF CARE EXPIRES ON:: 03/27/17 ORDER # VISITS AND/OR THROUGH DATE: 03/27/17
--- NOTE | 2017-03-21 12:01 | RS.OPPTDN ---
Subjective Date of Note: 03/21/17 Visit #: 21 Date of Evaluation: 01/30/17 Payer Source: MEDICARE Treatment Diagnosis: Right shoulder stiffness, weakness, pain. Current Subjective/complaints:: No new c/o. States she is working on HEP and has made her something similar to a finger ladder. Pain Assessment - Pain Description Pain Location: Right shoulder Other Comments regarding Pain:: Mild to mod discomfort with exercise and end range stretching. Interventions - Exercise/Activities/Manual Therapy Exercises/Activities: Passive stretching in all directions to the right shoulder. Manual isometrics x 10 all directions supine. 4# PRE's for elbow and wrist, and right shoulder flexion, chest press/punch. Continued with 5# wand for bilateral shoulder flexion and chest presses with weight being distributed through the R shoulder. Green tband for pull downs and bilateral shoulder abd in supine x 10. Sittin# wand for bilateral shoulder flexion, short ranges 2# for shoulder flexion and abd in standing x 10. Green tband for scap retraction 2s/10reps. Standing: shelf reaching no wiehgts. Chest passing medium ball. Ball on wall. Finger ladder. Shelf reaching. Overhead chest press with 1# wand. Total minutes of Exercise: 45mins Manual Therapy: NA HOME EXERCISE PROGRAM: RTC series in pendulum position, wand for active assisted shoulder flexion and abduction, and self stretch in shoulder ER. Wall slides. red theraputty for home use and yellow and red theraband for serratus anterior punch, shoulder ER, elbow flexion, and wrist flex/extension. - Charges Timed Code Treatment Minutes: 45mins Total Treatment Time: 45mins Procedures billed for this date of service:: EX3 Assessment: Patient progressing with exercises and motivated to work on HEP. Patient Education: Home Exercise Program, Home Safety, Activity Modification Patient demonstrates compliance with HEP?: Yes Short Term Goals Goal #1: Right shoulder PROM flexion WFL's. Goal to be met by: 02/13/17 Progress towards Goal:: Met Goal #2: Passive right shoulder ER 30 degrees. Goal to be met by: 03/11/17 Progress towards Goal:: Met Goal #3: Patient and spouse independent in home exercise program. Goal to be met by: 02/13/17 Progress towards Goal:: Met Goal #4: Pt to demonstrate good postural awareness. Goal to be met by: 03/11/17 Progress towards Goal:: Met Institutional Aide Goals Goal #1: Pt knows HEP and to continue ex's to maintain functional level at D/C. Goal to be met by: 03/27/17 Progress towards goal: Progressing Goal #2: Score on UE functional scale improved to less than 39% impairment. Goal to be met by: 03/27/17 Progress towards goal: Progressing Goal #3: Right shoulder AROM improved to allow pt to perform light ADL's & selfcare. Goal to be met by: 03/27/17 Progress towards goal: Progressing Goal #4: Pt to report right shoulder pain minimal with movement. Goal to be met by: 03/27/17 Progress towards goal: Met Plan PLAN OF CARE EXPIRES ON:: 03/27/17 ORDER # VISITS AND/OR THROUGH DATE: 03/27/17 PLAN: Progress exercise to increase functional use of the right UE.
--- NOTE | 2017-03-24 14:35 | RS.OPPTDN ---
Subjective Date of Note: 03/24/17 Visit #: 22 Date of Evaluation: 01/30/17 Payer Source: MEDICARE Treatment Diagnosis: Right shoulder stiffness, weakness, pain. Current Subjective/complaints:: Patient c/o stiffness, but no pain. Reports she is reaching into her high cabinets for her cups/glasses using the R arm without any difficulty. She is continuing to use 3# dumbell at home and working on HEP. Interventions - Exercise/Activities/Manual Therapy Exercises/Activities: Passive stretching in all directions to the right shoulder. Manual isometrics x 10 all directions supine. 4# PRE's for elbow and wrist, and right shoulder flexion, chest press/punch. Continued with 5# wand for bilateral shoulder flexion and chest presses with weight being distributed through the R shoulder. Green tband for pull downs and bilateral shoulder abd in supine x 10. Sittin# wand for bilateral shoulder flexion, short ranges 2# for shoulder flexion and abd in standing x 10. Green tband for scap retraction 2s/10reps. Standing: shelf reaching no wiehgts. Chest passing medium ball having a 2 1/2# weight on R wrist. Ball on wall. Finger ladder. Shelf reaching using 4# bilateral reach x 10. Blue tband pull downs in standing x 15. Total minutes of Exercise: 42 Manual Therapy: NA HOME EXERCISE PROGRAM: RTC series in pendulum position, wand for active assisted shoulder flexion and abduction, and self stretch in shoulder ER. Wall slides. red theraputty for home use and yellow and red theraband for serratus anterior punch, shoulder ER, elbow flexion, and wrist flex/extension. - Charges Timed Code Treatment Minutes: 42 Total Treatment Time: 42 Procedures billed for this date of service:: ex3 Assessment: Patient progressing with weighted exercises overhead and with passive flexion and abd near WNL, however, active flexion with R shoulder isolated remains quite limited and with moderate scapular compensation. Patient Education: Home Exercise Program Patient demonstrates compliance with HEP?: Yes Short Term Goals Goal #1: Right shoulder PROM flexion WFL's. Goal to be met by: 02/13/17 Progress towards Goal:: Met Goal #2: Passive right shoulder ER 30 degrees. Goal to be met by: 03/11/17 Progress towards Goal:: Met Goal #3: Patient and spouse independent in home exercise program. Goal to be met by: 02/13/17 Progress towards Goal:: Met Goal #4: Pt to demonstrate good postural awareness. Goal to be met by: 03/11/17 Progress towards Goal:: Met Entry Level Accountant Goals Goal #1: Pt knows HEP and to continue ex's to maintain functional level at D/C. Goal to be met by: 03/27/17 Progress towards goal: Progressing Goal #2: Score on UE functional scale improved to less than 39% impairment. Goal to be met by: 03/27/17 Progress towards goal: Progressing Goal #3: Right shoulder AROM improved to allow pt to perform light ADL's & selfcare. Goal to be met by: 03/27/17 Progress towards goal: Progressing Goal #4: Pt to report right shoulder pain minimal with movement. Goal to be met by: 03/27/17 Progress towards goal: Met Plan PLAN OF CARE EXPIRES ON:: 03/27/17 ORDER # VISITS AND/OR THROUGH DATE: 03/27/17 PLAN: Patient to continue x 1 more visit this week, then return to ortho next Friday04/04/17.
--- NOTE | 2017-03-26 11:49 | RS.OPPTDN ---
Subjective Date of Note: 03/26/17 Visit #: 23 Date of Evaluation: 01/30/17 Payer Source: MEDICARE Treatment Diagnosis: Right shoulder stiffness, weakness, pain. Current Subjective/complaints:: Patient says she is able to do most light household tasks and all hygiene/grooming tasks. She says pain is 0/10, with PT exercises 2/10. She continues to ask if she will be able to lift her arm in comparison to the L and the strength be "normal." Pain Assessment - Pain Description Pain Location: R upper arm (muscular soreness) 0 to 2/10 avg Interventions - Exercise/Activities/Manual Therapy Exercises/Activities: Passive stretching in all directions to the right shoulder. Manual isometrics x 10 all directions supine. 4# PRE's for elbow and wrist, and right shoulder flexion, chest press/punch. Continued with 5# wand for bilateral shoulder flexion and chest presses with weight being distributed through the R shoulder. Green tband for pull downs and horizontal shoulder abd in supine x 10. Sittin# wand for bilateral shoulder flexion/ abd, short range active shoulder flexion and abd with contract/relax techniques , limited range 2# for shoulder flexion and abd in standing x 10. Green tband for scap retraction 2s/10reps. Standing: shelf reaching with small nerf ball from trunk to overhead x 8. Chest passing medium ball having a 2 1/2# weight on R wrist. Bounced ball on floor to WET WHEELER with 2# cuff weight x 10. Wall slides for shoulder flexion and horizontal abd/add with 2# cuff weight. Blue tband for standing bilateral pull downs x 15. Patient given progressed HEP with green and blue tbands. Encouraged her to continue with HEP and use ice if needed. Final measurements, strength, and youth ministry director assessed. Total minutes of Exercise: 48 Manual Therapy: NA HOME EXERCISE PROGRAM: RTC series in pendulum position, wand for active assisted shoulder flexion and abduction, and self stretch in shoulder ER. Wall slides. red theraputty for home use and yellow and red theraband for serratus anterior punch, shoulder ER, elbow flexion, and wrist flex/extension. 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 38# 3rd position (L), 35# 2nd position (L). Sitting ROM: Active Flexion 83 degrees, Active ABD 85 degrees. Supine ROM: Active Flexion 139 degrees, Active ABD 112 degrees. Passive Flexion 143 degrees, Passive WNL. Passive ER 40 degrees ( active ER ~25), Active IR 69 degrees. R shoulder strength remains 3+ for FLEX and ABD Patient Education: Education of diagnosis, Body/Joint mechanics, Home Exercise Program, Education of Plan of Care Patient demonstrates compliance with HEP?: Yes Short Term Goals Goal #1: Right shoulder PROM flexion WFL's. Goal to be met by: 02/13/17 Progress towards Goal:: Met Goal #2: Passive right shoulder ER 30 degrees. Goal to be met by: 03/11/17 Progress towards Goal:: Met Goal #3: Patient and spouse independent in home exercise program. Goal to be met by: 02/13/17 Progress towards Goal:: Met Goal #4: Pt to demonstrate good postural awareness. 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 Goal to be met by: 03/27/17 Progress towards goal: Met Goal #2: Score on UE functional scale improved to less than 39% impairment. Goal to be met by: 03/27/17 Progress towards goal: Partially Met Comments: Patient demo 39% Goal #3: Right shoulder AROM improved to allow pt to perform light ADL's & selfcare. Goal to be met by: 03/27/17 Progress towards goal: Met Goal #4: Pt to report right shoulder pain minimal with movement. Goal to be met by: 03/27/17 Progress towards goal: Met Plan PLAN OF CARE EXPIRES ON:: 03/27/17 ORDER # VISITS AND/OR THROUGH DATE: 03/27/17 PLAN: Patient to return to MD 04/04/17. She has completed original order plus a continuation. She is able to maintain HEP independently and progress with tbands. Questionable improvement if further therapy is recommended.
--- NOTE | 2017-03-26 14:47 | RS.OPPTDC ---
Date of Discharge: 03/26/17 Date of Evaluation: 01/30/17 Number of Visits: 23 Treatment Diagnosis: Right shoulder stiffness, weakness, pain. Current Complaints/Gains: Patient reports greater ease with exercises, ADL's, and light housework. She remains frustrated about limited active shoulder flexion. Reports increasing therabands and weights with exercises at home. Pain remains 0-2/10 on average and at the right upper arm arm instead of the shoulder joint. Functional Outcome Measure UE Functional Index: 49 (49/80=39%) - G Codes & Severity Modifier G Codes & Modifier: selfcare D/C CJ. selfcare Goal CJ Source of G Code score: UE functional scale Interventions - Exercise/Activities/Manual Therapy Exercises/Activities: NA Manual Therapy: NA HOME EXERCISE PROGRAM: RTC series in pendulum position, wand for active assisted shoulder flexion and abduction, and self stretch in shoulder ER. Wall slides. red theraputty for home use and yellow and red theraband for serratus anterior punch, shoulder ER, elbow flexion, and wrist flex/extension. - Objective Findings Observations,measurements,etc.: Passive shoulder ROM and pilot can router have both improved. Patient demonstrates active right shoulder flexion to 83-85 degrees with compensation of accessory muscles. Patient fatigues quickly with Active ROM. - Charges Timed Code Treatment Minutes: NA Total Treatment Time: NA Procedures billed for this date of service:: NA Assessment Assessment: Patient has made progress with active flexion of the right shoulder. She continues to be frustrated with the lack of functional use of the right shoulder. She has a full HEP to continue on her own. She has met all her goals but the one pertaining to FOM, which she is just one point away from meeting. No further skilled therapy indicated at this time. Short Term Goals Goal #1: Right shoulder PROM flexion WFL's. Goal to be met by: 02/13/17 Progress towards Goal:: Met Goal #2: Passive right shoulder ER 30 degrees. Goal to be met by: 03/11/17 Progress towards Goal:: Met Goal #3: Patient and spouse independent in home exercise program. Goal to be met by: 02/13/17 Progress towards Goal:: Met Goal #4: Pt to demonstrate good postural awareness. Goal to be met by: 03/11/17 Progress towards Goal:: Met Usp Goals Goal #1: Pt knows HEP and to continue ex's to maintain functional level at D/C. Goal to be met by: 03/27/17 Progress towards goal: Met Goal #2: Score on UE functional scale improved to less than 39% impairment. Goal to be met by: 03/27/17 Progress towards goal: Partially Met Goal #3: Right shoulder AROM improved to allow pt to perform light ADL's & selfcare. Goal to be met by: 03/27/17 Progress towards goal: Met Goal #4: Pt to report right shoulder pain minimal with movement. Goal to be met by: 03/27/17 Progress towards goal: Met Plan Reason for Discharge:: No Further Skilled Therapy Indicated
== END 2017-04-02 ==
PROVIDERS: ATTEND Orthopaedic Surgery
DX: M25.511 Pain in right shoulder (principal); M25.611 Stiffness of right shoulder, not elsewhere classified; Z98.890 Other specified postprocedural states

== ENCOUNTER 2017-05-09 06:44 | Outpatient (CLI) ==
[2012-08-26 22:58] VITALS: TEMP 97.5
--- NOTE | 2017-05-12 11:02 | ECHO2D ---
Date of Exam: 05/09/17 Ordering Physician: DR. MAXINE SULLIVAN,DR. DIAZ, DR. CODY Room #: OP Reason for Echo: PAC'S, COPD, HTN, SOB Room #: OP M-Mode Normal Adult Results LV Dimensions Normal Adult Results AoV Opening excursions >1.6 >1.6 LVEDD-base- 3.5-5.8 4.8 Ao root dimensions 2.0-3.7 3.5 LVESD-base- 3.1-4.6 L. Atrium dimensions 1.9-3.8 4.2 Post. Wall thickness 0.8-1.1 1.2 IV septum (thickness) 0.7-1.2 1.3 Post. Wall excursion 0.72-1.3 NORMAL Septal motion NORMAL Systolic motion R. Ventricular cavity 1.5-2.0 NORMAL LVEF 60% 57% Paradoxical septal wall motion NORMAL 2-D : 2-D M Mode Echocardiogram was performed using apical four chamber and left parasternal long and short axis views. Mitral, tricuspid and aortic valves appear to be normal. Contractility of the left ventricle seems to be normal, so is the cavity size. Enlarged Left atrial cavity size. Aortic root appears to be normal. There is no pericardial effusion. There is no thrombus noted in the left ventricular or left aortic cavity. No mitral valve prolapse noted. M-MODE: MV: NORMAL AV: NORMAL TV: NORMAL PV: CHAMBER SIZE: ENLARGED LEFT ATRIAL CAVITY WALL MOTION: NORMAL PERICARDIUM: NORMAL INTERPRETATION: 1. LEFT VENTRICULAR HYPERTROPHY WITH ENLARGED LEFT ATRIAL CAVITY 2. NORMAL LEFT VENTRICULAR CONTRACTILITY 3. NORMAL VALVES MTDD
== END 2017-05-09 06:45 | disposition home or self-care (01) ==
LOC: CAR 06:44
PROVIDERS: ATTEND Internal Medicine
DX: R06.02 Shortness of breath (principal); I49.1 Atrial premature depolarization; J44.9 Chronic obstructive pulmonary disease, unspecified; I10 Essential (primary) hypertension

== ENCOUNTER 2017-06-30 10:00 | Outpatient (RCR) ==
[2012-08-26 22:58] VITALS: TEMP 97.5
--- NOTE | 2017-06-23 08:51 | RS.OPPTEV2 ---
Date of Note: 06/20/17 Visit #: 1 Date of Evaluation: 06/20/17 Payer Source: MEDICARE Surgery Performed?: Yes Procedure Performed: R reverse total shld Date of Procedure: 05/16/17 Treatment Diagnosis: Right shoulder stiffness, weakness, pain. History of Condition/Mechanism of Injury:: Pt had a Rotator cuff repair on 12/05, then had an infection and had to have surgery to clean it out on 01/08/17. pt then underwent a R reverse total shoulder replacement on 05/16/17. Prior Level of Function.....Patient was independent with: ADL's, Self Care, Caregiving, Ambulation/Mobility, Community Integration/Access Functional Limitations: Sleep, Self Care, ADL's, Reaching, Pushing, Pulling, Lifting, Carrying, Community Access/Integration Current Subjective/complaints:: pt states she is not having much pain with this surgery, is anxious to regain functional use of R UE so she can return to work. Treatment Side (optional): Right *Precautions: avoid extension Medical History Medical History: Hypertension, Arthritis Surgical History: Cholecystectomy Surgical History Comments:: R rotator cuff surgery, I/D due to infection, ankle sx Smoking Status: Former smoker Hx Home Medications: Venlafaxine, Percocet, Ditropan, Meloxicam,Lisinopril-HCTZ , Levothyroxine, Ibuprofen, Bagapentin, [place]. Patient's Goals: decrease pain in R shld Pain Assessment - Pain Description Pain Location: R shld Pain Description: Aching Current Pain Intensity: 5 Worst Pain Intensity: 7 Functional Outcome Measure UE Functional Index: 31 (61%) - G Codes & Severity Modifier G Codes & Modifier: carrying, moving and handling currentCL. carrying, moving and handling goal CJ Source of G Code score: UE functional index Observation - Observation Posture: Forward Head, Rounded Shoulders, Increased Thoracic Kyphosis Handedness: Right Gait - Gait Pattern General Gait Pattern Observation: No Deviations/Normal General Range of Motion: LUE WFL's. BLE WFL's Muscle Strength: LUE 5/5. BLE 5/5 Shoulder ROM: Left WFL's Shoulder Muscle Strength: Left WFL's - Right Shoulder ROM Right Shoulder Flexion: 110 (AROM) Right Shoulder Abduction: 100 (AROM) Right Shoulder Internal Rotation: 15 Right Shoulder External Rotation: 10 Right Shoulder ROM Limitations: Soft Tissue Tightness, Muscle Weakness, Pain - Right Shoulder Strength Right Shoulder Flexion: 3- Fair- Right Shoulder Extension: Not Tested Right Shoulder Adduction: 3- Fair- Right Shoulder External Rotation: Not Tested Right Shoulder Internal Rotation: Not Tested Palpation Palpation Findings: Tenderness (pt with tenderness over incision as well as in ant shld to palpation. ), Trigger Point (some trigger points noted at medial aspect of scapula on R UE) Sensation - Sensation Right Upper Extremity: Intact/Normal Left Upper Extremity: Intact/Normal Right Lower Extremity: Intact/Normal Left Lower Extremity: Intact/Normal Balance - Sitting Balance Static Sitting Balance: Normal Dynamic Sitting Balance: Normal - Standing Balance Static Standing Balance: Normal Dynamic Standing Balance: Normal - Heat/Cryotherapy Treatment: Cryotherapy Comments:: R shld Interventions - Exercise/Activities/Manual Therapy Exercises/Activities: pt performed pendulum ex with isometric flex, abd/add, scapular retraction Manual Therapy: NA HOME EXERCISE PROGRAM: pt given written HEP including: isometric shld flex, isometric shld abd/add, scapular retraction - Charges Timed Code Treatment Minutes: 50 Total Treatment Time: 62 Procedures billed for this date of service:: eval low, cold pack EVALUATION COMPLEXITY LEVEL EVALUATION COMPLEXITY LEVEL: HISTORY: Medium (shld sx, htn, OA), EXAM OF BODY SYSTEMS: Low (pain, ROM, strength), CLINICAL PRESENTATION: Low (stable), CLINICAL DECISION MAKING: Low Assessment Assessment: pt presents s/p reverse total shld replacement. pt with decreased strength, ROM as well as pain. Feel pt would benefit from skilled PT for therex for strengthening, gentle stretching as well as modalities for pain/edema control to improve functional mobility to allow pt to resume normal activities. Patient Education: Home Exercise Program, Education of Plan of Care Rehab Potential: Good Short Term Goals Goal #1: pt report pain <5 with activity Goal to be met by: 07/11/17 Goal #2: Improve ROM R shld flex 130 abd 110, IR/ER 20 Goal to be met by: 07/11/17 Goal #3: pt independent with initial HEP Goal to be met by: 07/11/17 Goal #4: pt with improved posture Goal to be met by: 07/11/17 Shelter Goals Goal #1: pt independent with HEP and able to continue HEP at home to continue gains Goal to be met by: 08/01/17 Goal #2: Score on UE functional scale improved to less than 39% impairment. Goal to be met by: 08/01/17 Goal #3: Right shoulder AROM improved to allow pt to perform light ADL's & selfcare. Goal to be met by: 08/01/17 Goal #4: pt rate R shld pain <3 with activity Goal to be met by: 08/01/17 Plan - Treatment to be Provided Procedures: Therapeutic Exercises, Therapeutic Activity, Manual Therapy, Patient Education Modalities: Electrical Stimulation, Cryotherapy, Hot Packs - Treatment Plan Frequency: 2-3 X week Duration: 6 weeks ORDER # VISITS AND/OR THROUGH DATE: 08/01/17 - Treatment Code (1) Pain in joint, shoulder region Code(s): M25.519 - PAIN IN UNSPECIFIED SHOULDER Qualifiers: Laterality: right Qualified Code(s): M25.511 - Pain in right shoulder (2) Joint stiffness Code(s): M25.60 - STIFFNESS OF UNSPECIFIED JOINT, NOT ELSEWHERE CLASSIFIED (3) Other specified postprocedural states Code(s): Z98.89 - OTHER SPECIFIED POSTPROCEDURAL STATES * DO NOT USE * (4) Muscle weakness Code(s): M62.81 - MUSCLE WEAKNESS (GENERALIZED)
--- NOTE | 2017-06-23 16:05 | RS.OPPTDN ---
Subjective Date of Note: 06/23/17 Visit #: 2 Date of Evaluation: 06/20/17 Payer Source: MEDICARE Treatment Diagnosis: Right shoulder stiffness, weakness, pain. Current Subjective/complaints:: Patient reports she is doing well with motion and working on basic HEP. *Precautions: avoid extension Pain Assessment - Pain Description Pain Location: Right shoulder Current Pain Intensity: mild with some movement Interventions - Exercise/Activities/Manual Therapy Exercises/Activities: PROM and AAROM. Isometrics all directions including IR, ER , biceps and triceps. 1# wand for overhead flexion, chest press, and ER. Overhead flexion and diagonals while holding ball with arms extended. [place]. In sitting, reaching and wand for shoulder flexion. Red theraband for scap retraction. Shoulder pulleys for shoulder flexion and abduction. Wall walking. Total minutes of Exercise: 40mins Manual Therapy: NA HOME EXERCISE PROGRAM: pt given written HEP including: isometric shld flex, isometric shld abd/add, scapular retraction - Charges Timed Code Treatment Minutes: 40mins Total Treatment Time: 45mins Procedures billed for this date of service:: EX3 Assessment: Patient able to progress with exercise and report little to no discomfort. Patient Education: Body/Joint mechanics, Home Exercise Program, Home Safety, Activity Modification Patient demonstrates compliance with HEP?: Yes Short Term Goals Goal #1: pt report pain <5 with activity Goal to be met by: 07/11/17 Progress towards Goal:: Partially Met Goal #2: Improve ROM R shld flex 130 abd 110, IR/ER 20 Goal to be met by: 07/11/17 Progress towards Goal:: Progressing Goal #3: pt independent with initial HEP Goal to be met by: 07/11/17 Progress towards Goal:: Progressing Goal #4: pt with improved posture Goal to be met by: 07/11/17 [facility] Goals Goal #1: pt independent with HEP and able to continue HEP at home to continue gains Goal to be met by: 08/01/17 Goal #2: Score on UE functional scale improved to less than 39% impairment. Goal to be met by: 08/01/17 Goal #3: Right shoulder AROM improved to allow pt to perform light ADL's & selfcare. Goal to be met by: 08/01/17 Goal #4: pt rate R shld pain <3 with activity Goal to be met by: 08/01/17 Plan PLAN OF CARE EXPIRES ON:: 08/01/17 ORDER # VISITS AND/OR THROUGH DATE: 08/01/17 PLAN: Progress strength and ROM to increase functional use of the right UE.
--- NOTE | 2017-06-25 16:29 | RS.OPPTDN ---
Subjective Date of Note: 06/25/17 Visit #: 3 Date of Evaluation: 06/20/17 Payer Source: MEDICARE Treatment Diagnosis: Right shoulder stiffness, weakness, pain. Current Subjective/complaints:: Patient reports she is doing better each day. *Precautions: avoid extension Interventions - Exercise/Activities/Manual Therapy Exercises/Activities: PROM and AAROM. Isometrics all directions including IR, ER , biceps and triceps. 1# wand for overhead flexion, chest press, and ER. Overhead flexion and diagonals while holding ball with arms extended. Red theraband for chest press. 1# dumbell for modified PNF D1 and D2 with light assist. In sitting, reaching and wand for shoulder flexion overhead. Then 3# wand for flexion to shoulder height. 1# dumbell for shoulder range flexion, scaption, and abduction. Red theraband for scap retraction. Shoulder pulleys for shoulder flexion and abduction. Wall walking. Reviewd patient education and safety precautions to avoid extension and excessive IR. Total minutes of Exercise: 40mins Manual Therapy: NA HOME EXERCISE PROGRAM: pt given written HEP including: isometric shld flex, isometric shld abd/add, scapular retraction - Charges Timed Code Treatment Minutes: 40mins Total Treatment Time: 45mins Procedures billed for this date of service:: EX3 Assessment: Patient progressing well with exercise. Patient Education: Body/Joint mechanics, Home Exercise Program Patient demonstrates compliance with HEP?: Yes Short Term Goals Goal #1: pt report pain <5 with activity Goal to be met by: 07/11/17 Progress towards Goal:: Partially Met Goal #2: Improve ROM R shld flex 130 abd 110, IR/ER 20 Goal to be met by: 07/11/17 Progress towards Goal:: Progressing Goal #3: pt independent with initial HEP Goal to be met by: 07/11/17 Progress towards Goal:: Progressing Goal #4: pt with improved posture Goal to be met by: 07/11/17 [facility] Goals Goal #1: pt independent with HEP and able to continue HEP at home to continue gains Goal to be met by: 08/01/17 Progress towards goal: Progressing Goal #2: Score on UE functional scale improved to less than 39% impairment. Goal to be met by: 08/01/17 Goal #3: Right shoulder AROM improved to allow pt to perform light ADL's & selfcare. Goal to be met by: 08/01/17 Progress towards goal: Progressing Goal #4: pt rate R shld pain <3 with activity Goal to be met by: 08/01/17 Progress towards goal: Progressing Plan PLAN OF CARE EXPIRES ON:: 08/01/17 ORDER # VISITS AND/OR THROUGH DATE: 08/01/17 PLAN: Progress with ROM and strengthening exercise to increase functional use of the right UE.
--- NOTE | 2017-06-27 14:07 | RS.OPPTDN ---
Subjective Date of Note: 06/27/17 Visit #: 4 Date of Evaluation: 06/20/17 Payer Source: MEDICARE Treatment Diagnosis: Right shoulder stiffness, weakness, pain. Current Subjective/complaints:: Patient reports she is consistently working on HEP as instructed. She is using the right UE more for light activities. *Precautions: avoid extension Interventions - Exercise/Activities/Manual Therapy Exercises/Activities: PROM and AAROM. Isometrics all directions including IR, ER , biceps and triceps. Increased to 3# wand for overhead flexion, chest press, and ER. Overhead flexion and diagonals while holding ball with arms extended. Red theraband for chest press and extension. 1# dumbell for modified PNF D1 and D2 with light assist. Holding ball between hands for isometric shoulder IR. In sitting, reaching and wand for shoulder flexion overhead. Then 3# wand for flexion to shoulder height. 1# dumbell for shoulder range flexion, scaption, and abduction. Red theraband for scap retraction. Began ball on the wall. Wall walking. 3# wand for flexion to shoulder height, working on reducing right shoulder elevation. Reviewed patient education and safety precautions to avoid extension and excessive IR. Total minutes of Exercise: 42mins Manual Therapy: NA HOME EXERCISE PROGRAM: pt given written HEP including: isometric shld flex, isometric shld abd/add, scapular retraction - Charges Timed Code Treatment Minutes: 42mins Total Treatment Time: 42mins Procedures billed for this date of service:: EX3 Assessment: Patient progressing well. 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 Goal to be met by: 08/01/17 Goal #3: Right shoulder AROM improved to allow pt to perform light ADL's & selfcare. Goal to be met by: 08/01/17 Progress towards goal: Progressing Goal #4: pt rate R shld pain <3 with activity Goal to be met by: 08/01/17 Progress towards goal: Progressing Plan PLAN OF CARE EXPIRES ON:: 08/01/17 ORDER # VISITS AND/OR THROUGH DATE: 08/01/17 PLAN: Progress strength and ROM of the right UE to increase functional activity level.
--- NOTE | 2017-06-30 12:10 | RS.OPPTDN ---
Subjective Date of Note: 06/30/17 Visit #: 5 Date of Evaluation: 06/20/17 Payer Source: MEDICARE Treatment Diagnosis: Right shoulder stiffness, weakness, pain. Current Subjective/complaints:: Reports she is doing her HEP and is doing more light activities at home. *Precautions: avoid extension Pain Assessment - Pain Description Pain Location: Right shoulder Current Pain Intensity: Mild at end range with stretch Other Comments regarding Pain:: No pain at rest or with light activity. Interventions - Exercise/Activities/Manual Therapy Exercises/Activities: PROM and AAROM. Isometrics all directions including IR, ER , biceps and triceps. Increased to 3# wand for overhead flexion, chest press, and ER. Overhead flexion and diagonals while holding ball with arms extended. Red theraband for chest press and extension. Holding ball between hands for isometric shoulder IR. In sitting, reaching and wand for shoulder flexion overhead. Then 3# wand for flexion to shoulder height. 1# dumbell for shoulder range flexion, scaption, and abduction. PNF pattern with assist D1 and D2. Red theraband for scap retraction. Ball on the wall. Wall walking. 3# wand for flexion to shoulder height. Yellow theraband with wand for scap retraction. Yellow theraband for shoulder flex, ext, add, and abd, 10reps each in standing. Cable pullys for scap retract and bilateral shoulder ext 10#, 10reps each. UBE x2mins. Reviewed patient education and safety precautions to avoid extension and excessive IR. Total minutes of Exercise: 40mins Manual Therapy: NA HOME EXERCISE PROGRAM: pt given written HEP including: isometric shld flex, isometric shld abd/add, scapular retraction - Charges Timed Code Treatment Minutes: 40mins Total Treatment Time: 40mins Procedures billed for this date of service:: EX3 Assessment: Patient prgoressing well with strengthening and with functional activities at home. Patient Education: Body/Joint mechanics, Home Exercise Program, Activity Modification Patient demonstrates compliance with HEP?: Yes Short Term Goals Goal #1: pt report pain <5 with activity Goal to be met by: 07/11/17 Progress towards Goal:: Partially Met Goal #2: Improve ROM R shld flex 130 abd 110, IR/ER 20 Goal to be met by: 07/11/17 Progress towards Goal:: Progressing Goal #3: pt independent with initial HEP Goal to be met by: 07/11/17 Progress towards Goal:: Partially Met Goal #4: pt with improved posture Goal to be met by: 07/11/17 Progress towards Goal:: Progressing [facility] Goals Goal #1: pt independent with HEP and able to continue HEP at home to continue gains Goal to be met by: 08/01/17 Progress towards goal: Progressing Goal #2: Score on UE functional scale improved to less than 39% impairment. Goal to be met by: 08/01/17 Goal #3: Right shoulder AROM improved to allow pt to perform light ADL's & selfcare. Goal to be met by: 08/01/17 Progress towards goal: Progressing Goal #4: pt rate R shld pain <3 with activity Goal to be met by: 08/01/17 Progress towards goal: Progressing Plan PLAN OF CARE EXPIRES ON:: 08/01/17 ORDER # VISITS AND/OR THROUGH DATE: 08/01/17 PLAN: Progress with strength and ROM to increase functional use of the right UE.
== END 2017-06-30 23:59 ==
PROVIDERS: ATTEND Orthopaedic Surgery
DX: M25.511 Pain in right shoulder (principal); M25.611 Stiffness of right shoulder, not elsewhere classified; M62.81 Muscle weakness (generalized); Z98.890 Other specified postprocedural states

== ENCOUNTER 2017-07-30 14:00 | Outpatient (RCR) ==
[2012-08-26 22:58] VITALS: TEMP 97.5
--- NOTE | 2017-07-02 14:33 | RS.OPPTDN ---
Subjective Date of Note: 07/02/17 Visit #: 6 Date of Evaluation: 06/20/17 Payer Source: MEDICARE Treatment Diagnosis: Right shoulder stiffness, weakness, pain. Current Subjective/complaints:: Patient states she is doing better. She is now able to reach the second shelf of her cabinets. *Precautions: avoid extension Pain Assessment - Pain Description Pain Location: Right shoulder Other Comments regarding Pain:: Reports no pain today. Interventions - Exercise/Activities/Manual Therapy Exercises/Activities: PROM and AAROM. Isometrics all directions including IR, ER , biceps and triceps. Increased to 3# wand for overhead flexion, chest press, and ER. Overhead flexion and diagonals while holding ball with arms extended. Red theraband for chest press and extension. Holding ball between hands for isometric shoulder IR. Yellow theraband for UE diagonals and horz abd. In sitting, reaching and wand for shoulder flexion overhead. 3# wand for flexion to shoulder height. 1# dumbell for shoulder range flexion, scaption, and abduction. Ball toss/chest passing. Red theraband for scap retraction. Ball on the wall. Ball toss off of wall. Wall walking. 3# wand for flexion to shoulder height. Yellow theraband with wand for scap retraction. Yellow theraband for shoulder flex, ext, add, and abd, 10reps each in standing. UBE increased x3mins. Total minutes of Exercise: 40mins Manual Therapy: NA HOME EXERCISE PROGRAM: pt given written HEP including: isometric shld flex, isometric shld abd/add, scapular retraction - Charges Timed Code Treatment Minutes: 40mins Total Treatment Time: 40mins Procedures billed for this date of service:: EX3 Assessment: Patient progressing with ROM and strengthening exercise. 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 Goal to be met by: 08/01/17 Goal #3: Right shoulder AROM improved to allow pt to perform light ADL's & selfcare. Goal to be met by: 08/01/17 Progress towards goal: Progressing Goal #4: pt rate R shld pain <3 with activity Goal to be met by: 08/01/17 Progress towards goal: Progressing Plan PLAN OF CARE EXPIRES ON:: 08/01/17 ORDER # VISITS AND/OR THROUGH DATE: 08/01/17 PLAN: Progress with ROM and strengthening.
--- NOTE | 2017-07-04 14:44 | RS.CXNS ---
Date of scheduled appointment: 07/04/17 Type: Cancel (Patients called to cancel her appointment today. States patient has had a fall and she will reschedule for next week.)
--- NOTE | 2017-07-07 11:55 | RS.OPPTDN ---
Subjective Date of Note: 07/07/17 Visit #: 7 Date of Evaluation: 06/20/17 Payer Source: MEDICARE Treatment Diagnosis: Right shoulder stiffness, weakness, pain. Current Subjective/complaints:: Patient reports she had a fall on . States she was seen in the ER and cleared to return to therapy by physician. Reports she is sore but has been working on HEP. *Precautions: avoid extension Pain Assessment - Pain Description Pain Location: Right shoulder Pain Description: soreness Current Pain Intensity: mod with end range stretching Interventions - Exercise/Activities/Manual Therapy Exercises/Activities: PROM and AAROM. Isometrics all directions including IR, ER , biceps and triceps. 3# wand for overhead flexion, chest press, and ER. Overhead flexion and chest press while holding ball with arms extended. Red theraband for chest press and extension. Holding ball between hands for isometric shoulder IR. Yellow theraband for UE diagonals and horz abd. In sitting, reaching and wand for shoulder flexion overhead. 3# wand for flexion to below shoulder height. Reaching for 1# cuff weight shoulder range flexion, scaption, and horizontal adduction. Yellow theraband for scap retraction. Ball on the wall. Press into ball on the wall. Ended wtih additional PROM. Total minutes of Exercise: 40mins Manual Therapy: NA HOME EXERCISE PROGRAM: pt given written HEP including: isometric shld flex, isometric shld abd/add, scapular retraction - Charges Timed Code Treatment Minutes: 40mins Total Treatment Time: 40mins Procedures billed for this date of service:: EX3 Assessment: Patient reporting soreness in the right shoulder region. Reduced some strengthening exercises to patient tolerance today. Patient Education: Home Exercise Program Patient demonstrates compliance with HEP?: Yes Short Term Goals Goal #1: pt report pain <5 with activity Goal to be met by: 07/11/17 Progress towards Goal:: Partially Met Goal #2: Improve ROM R shld flex 130 abd 110, IR/ER 20 Goal to be met by: 07/11/17 Progress towards Goal:: Progressing Goal #3: pt independent with initial HEP Goal to be met by: 07/11/17 Progress towards Goal:: Partially Met Goal #4: pt with improved posture Goal to be met by: 07/11/17 Progress towards Goal:: Progressing Correction Goals Goal #1: pt independent with HEP and able to continue HEP at home to continue gains Goal to be met by: 08/01/17 Progress towards goal: Progressing Goal #2: Score on UE functional scale improved to less than 39% impairment. Goal to be met by: 08/01/17 Goal #3: Right shoulder AROM improved to allow pt to perform light ADL's & selfcare. Goal to be met by: 08/01/17 Progress towards goal: Progressing Goal #4: pt rate R shld pain <3 with activity Goal to be met by: 08/01/17 Progress towards goal: Progressing Plan PLAN OF CARE EXPIRES ON:: 08/01/17 ORDER # VISITS AND/OR THROUGH DATE: 08/01/17 PLAN: Resume progressive strengthening to patient tolerance.
--- NOTE | 2017-07-09 11:59 | RS.OPPTDN ---
Subjective Date of Note: 07/09/17 Visit #: 8 Date of Evaluation: 06/20/17 Payer Source: MEDICARE Treatment Diagnosis: Right shoulder stiffness, weakness, pain. Current Subjective/complaints:: Patient reports she was more sore following last session. States she had to take a muscle relaxer and go to bed that afternoon. Following treatment today she reports felling much better. *Precautions: avoid extension Pain Assessment - Pain Description Pain Location: Right shoulder Pain Description: Tightness, Aching Current Pain Intensity: mild to mod Other Comments regarding Pain:: Reports reduction in soreness and tightness following treatment. - Heat/Cryotherapy Treatment: Hot Pack ([id number] right shoulder prior to EX. Patient in supine. ) Interventions - Exercise/Activities/Manual Therapy Exercises/Activities: PROM and AAROM. Isometrics all directions of right shoulder including IR, ER, biceps and triceps. Long stretching with breathing for relaxation to increase PROM. Total minutes of Exercise: 25mins Manual Therapy: NA HOME EXERCISE PROGRAM: pt given written HEP including: isometric shld flex, isometric shld abd/add, scapular retraction - Objective Findings Observations,measurements,etc.: In supine, active right shoulder flexion 160 degrees. In sitting, active right shoulder flexion 104 degrees and active assistive flexion 137 degrees. - Charges Timed Code Treatment Minutes: 25mins Total Treatment Time: 45mins Procedures billed for this date of service:: HP, EX2 Assessment: Patient with increased tightness and discomfort since fall. She reports a good response to HP and long passive stretching. Patient Education: Body/Joint mechanics, Activity Modification, Education of Plan of Care Comments: Advised patient to use heat and work on shoulder pulleys today. 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 Goal to be met by: 08/01/17 Goal #3: Right shoulder AROM improved to allow pt to perform light ADL's & selfcare. Goal to be met by: 08/01/17 Progress towards goal: Progressing Goal #4: pt rate R shld pain <3 with activity Goal to be met by: 08/01/17 Progress towards goal: Progressing Plan PLAN OF CARE EXPIRES ON:: 08/01/17 ORDER # VISITS AND/OR THROUGH DATE: 08/01/17 PLAN: Resume strengthening exercises next session as tolerated.
--- NOTE | 2017-07-11 11:27 | RS.OPPTDN ---
Subjective Date of Note: 07/11/17 Visit #: 9 Date of Evaluation: 06/20/17 Payer Source: MEDICARE Treatment Diagnosis: Right shoulder stiffness, weakness, pain. Current Subjective/complaints:: Patient reports feeling much better since last session that focused on heat and stretching. Reports she is going to see physician today. *Precautions: avoid extension Pain Assessment - Pain Description Pain Location: Right shoulder Pain Description: Tightness, Dull Current Pain Intensity: mild - Heat/Cryotherapy Treatment: Hot Pack ([id number] to the right shoulder prior to EX. Patient in supine. ) Interventions - Exercise/Activities/Manual Therapy Exercises/Activities: PROM and AAROM. Isometrics all directions of right shoulder including IR, ER, biceps and triceps. Long stretching with breathing for relaxation to increase PROM. Resumed ressitive exercises with yellow theraband for UE diagonals and bilateral shoulder horiz abd. Began proprioception with 2# ball held overhead at 90 degrees shoulder flexion, cw and ccw [place] and manual resistance. Isometric IR holding ball and overhead ball toss. In sitting and standing, active reaching. Wall walk. Yellow theraband for shoulder x all for directions. Total minutes of Exercise: 39mins Manual Therapy: NA HOME EXERCISE PROGRAM: pt given written HEP including: isometric shld flex, isometric shld abd/add, scapular retraction - Objective Findings Observations,measurements,etc.: In supine, active right shoulder flexion 164 degrees. In standing, active right shoulder flexion 94 degrees, and abd 92 degrees. - Charges Timed Code Treatment Minutes: 39mins Total Treatment Time: 59mins Procedures billed for this date of service:: HP, EX3 Assessment: Patient suffered a fall which has set back her progress, but seems to be recovering quickly. She will need to continue strengthening to increase her functional use of the right UE with daily activities. Patient Education: Body/Joint mechanics, Home Exercise Program, Activity Modification Patient demonstrates compliance with HEP?: Yes Short Term Goals Goal #1: pt report pain <5 with activity Goal to be met by: 07/11/17 Progress towards Goal:: Partially Met Goal #2: Improve ROM R shld flex 130 abd 110, IR/ER 20 Goal to be met by: 07/11/17 Progress towards Goal:: Progressing Goal #3: pt independent with initial HEP Goal to be met by: 07/11/17 Progress towards Goal:: Partially Met Goal #4: pt with improved posture Goal to be met by: 07/11/17 Progress towards Goal:: Partially Met Snf Goals Goal #1: pt independent with HEP and able to continue HEP at home to continue gains Goal to be met by: 08/01/17 Progress towards goal: Progressing Goal #2: Score on UE functional scale improved to less than 39% impairment. Goal to be met by: 08/01/17 Goal #3: Right shoulder AROM improved to allow pt to perform light ADL's & selfcare. Goal to be met by: 08/01/17 Progress towards goal: Progressing Goal #4: pt rate R shld pain <3 with activity Goal to be met by: 08/01/17 Progress towards goal: Progressing Plan PLAN OF CARE EXPIRES ON:: 08/01/17 ORDER # VISITS AND/OR THROUGH DATE: 08/01/17 PLAN: Continue to progress strengthening exercise to increase functional use of the right UE with all daily ADL's.
--- NOTE | 2017-07-14 14:04 | RS.OPPTDN ---
Subjective Date of Note: 07/14/17 Visit #: 10 Date of Evaluation: 06/20/17 Payer Source: MEDICARE Treatment Diagnosis: Right shoulder stiffness, weakness, pain. Current Subjective/complaints:: Patient reports continued improvement in functional use of the right UE. States she can lift light dishes to the lower shelf in the kitchen. States she can lift and carry light objects at a low level. She would like to be able to perform all light to mod daily activities such as laundry, upper shelf reaching, and dusting shelves. *Precautions: avoid extension Pain Assessment - Pain Description Pain Location: Right shoulder Other Comments regarding Pain:: No pain at rest, but mild to mod discomfort with end range stretching. Interventions - Exercise/Activities/Manual Therapy Exercises/Activities: PROM and AAROM. Increased to 4# wand for chest press and overhead flexion. Isometrics all directions of right shoulder including IR, ER , biceps and triceps. Resistive exercises with yellow theraband for UE diagonals and bilateral shoulder horiz abd. Proprioception with 2# ball held overhead at 90 degrees shoulder flexion, cw and ccw [place] and manual resistance. Isometric IR holding ball and overhead ball toss. Overhead diagonals while holding ball. In sitting and standing, active reaching. Ball on the wall. Chest and overhead passing. Cuff series with 3#, 3 directions 10reps each. Total minutes of Exercise: 42mins Manual Therapy: NA HOME EXERCISE PROGRAM: pt given written HEP including: isometric shld flex, isometric shld abd/add, scapular retraction - Objective Findings Observations,measurements,etc.: Patient demos active right shoulder flexion 164 degrees in supine. In standing, active right shoulder flexion 94 degrees, and abd 92 degrees. Patients reassessment of the UE functional scale improves to 52 /80 or 35% (was 31/80 or 61% on Eval) - Charges Timed Code Treatment Minutes: 42mins Total Treatment Time: 44mins Procedures billed for this date of service:: EX3 Assessment: Patient has progressed well and benefitted from treatment. She has met 4 of 8 treatment goals and demos potential to progress. Patient Education: Body/Joint mechanics, Home Exercise Program, Activity Modification Patient demonstrates compliance with HEP?: Yes Short Term Goals Goal #1: pt report pain <5 with activity Goal to be met by: 07/11/17 Progress towards Goal:: Met Goal #2: Improve ROM R shld flex 130 abd 110, IR/ER 20 Goal to be met by: 07/11/17 Progress towards Goal:: Progressing Goal #3: pt independent with initial HEP Goal to be met by: 07/11/17 Progress towards Goal:: Met Goal #4: pt with improved posture Goal to be met by: 07/11/17 Progress towards Goal:: Met Retirement Goals Goal #1: pt independent with HEP and able to continue HEP at home to continue gains Goal to be met by: 08/01/17 Progress towards goal: Partially Met Goal #2: Score on UE functional scale improved to less than 39% impairment. Goal to be met by: 08/01/17 Progress towards goal: Met Comments: 35% impairment upon reassessment of UE Functional scale. Goal #3: Right shoulder AROM improved to allow pt to perform light ADL's & selfcare. Goal to be met by: 08/01/17 Progress towards goal: Progressing Goal #4: pt rate R shld pain <3 with activity Goal to be met by: 08/01/17 Progress towards goal: Progressing Plan PLAN OF CARE EXPIRES ON:: 08/01/17 ORDER # VISITS AND/OR THROUGH DATE: 08/01/17 PLAN: Patient may continue with new orders from physician.
--- NOTE | 2017-07-15 13:41 | RS.PTSUM ---
Progress Note/Summary Date of Note: 07/14/17 Date of Evaluation: 06/20/17 Number of Visits: 10 Reporting Period for this Progress Note: 06/20-07/14/17 Current Complaints/Gains: pt states that she is able to perform light ADL's and can reach her lower shelves to put dishes away. pt states she would like to increase her strength and to increase use of RUE with all ADL's. Objective Measurements/Presentation: UE functional scale 52/80 which is improved from . pt presents with AROM R shld flex 94, abd 92. pt continues with weakness especially in IR/ER. pt has improved in functional use of R UE and able to return to some household duties. G Codes: moving, carrying current CJ. moving, carrying goals CJ Source of G Code Score: UE functional scale - Short Term Goals Goal #1: pt report pain <5 with activity Goal to be met by: 07/11/17 Progress towards Goal:: Met Goal #2: Improve ROM R shld flex 130 abd 110, IR/ER 20 Goal to be met by: 08/01/17 Progress towards Goal:: Progressing Goal #3: pt independent with initial HEP Goal to be met by: 07/11/17 Progress towards Goal:: Met Goal #4: pt with improved posture Goal to be met by: 07/11/17 Progress towards Goal:: Met - Senior Living Goals Goal #1: pt independent with HEP and able to continue HEP at home to continue gains Goal to be met by: 08/01/17 Progress towards goal: Partially Met Goal #2: Score on UE functional scale improved to less than 39% impairment. Goal to be met by: 08/01/17 Progress towards goal: Met Goal #3: Right shoulder AROM improved to allow pt to perform light ADL's & selfcare. Goal to be met by: 08/01/17 Progress towards goal: Progressing Goal #4: pt rate R shld pain <3 with activity Goal to be met by: 08/01/17 Progress towards goal: Progressing - Assessment Assessment of Improvement/Progress: pt has made significant improvements with pain, ROM, function. pt has met 4/8 goals and is progressing toward remaining goals. Feel pt would benefit from continued PT for progressive therex for strengthening, ROM and pain relief. Summary: Patient has made progress towards goals., Patient demonstrates potential to gain increased function with therapy - Plan Plan: Continue Plan of Care Comments: Order received to continue PT Frequency: 2 X week Duration: 2 weeks PLAN OF CARE EXPIRES ON:: 08/01/17 ORDER # VISITS AND/OR THROUGH DATE: 08/01/17
--- NOTE | 2017-07-17 14:31 | RS.OPPTDN ---
Subjective Date of Note: 07/17/17 Visit #: 11 Date of Evaluation: 06/20/17 Payer Source: MEDICARE Treatment Diagnosis: Right shoulder stiffness, weakness, pain. Current Subjective/complaints:: Patient reports doing better with light reaching activities. *Precautions: avoid extension Interventions - Exercise/Activities/Manual Therapy Exercises/Activities: PROM and AAROM. Increased to 5# wand for chest press and overhead flexion. Isometrics all directions of right shoulder including IR, ER , biceps and triceps. Proprioception with 2# ball held overhead at 90 degrees shoulder flexion, cw and ccw [place]. Isometric IR holding ball and overhead ball toss. In sitting and standing, active reaching. Overhead diagonals while holding ball. Ball on the wall. Chest passing. Throwing velcro ball. Cable pulleys with 10# for scap retraction and biceps curl. UBE 2mins. Total minutes of Exercise: 43mins Manual Therapy: NA HOME EXERCISE PROGRAM: pt given written HEP including: isometric shld flex, isometric shld abd/add, scapular retraction - Charges Timed Code Treatment Minutes: 43mins Total Treatment Time: 43mins Procedures billed for this date of service:: EX3 Assessment: Patient progressing with active exercises and reaching activities. Patient Education: Body/Joint mechanics, Home Exercise Program, Activity Modification Patient demonstrates compliance with HEP?: Yes Short Term Goals Goal #1: pt report pain <5 with activity Goal to be met by: 07/11/17 Progress towards Goal:: Met Goal #2: Improve ROM R shld flex 130 abd 110, IR/ER 20 Goal to be met by: 08/01/17 Progress towards Goal:: Partially Met Goal #3: pt independent with initial HEP Goal to be met by: 07/11/17 Progress towards Goal:: Met Goal #4: pt with improved posture Goal to be met by: 07/11/17 Progress towards Goal:: Met Correction Goals Goal #1: pt independent with HEP and able to continue HEP at home to continue gains Goal to be met by: 08/01/17 Progress towards goal: Partially Met Goal #2: Score on UE functional scale improved to less than 39% impairment. Goal to be met by: 08/01/17 Progress towards goal: Met Goal #3: Right shoulder AROM improved to allow pt to perform light ADL's & selfcare. Goal to be met by: 08/01/17 Progress towards goal: Progressing Goal #4: pt rate R shld pain <3 with activity Goal to be met by: 08/01/17 Progress towards goal: Progressing Plan PLAN OF CARE EXPIRES ON:: 08/01/17 ORDER # VISITS AND/OR THROUGH DATE: 08/01/17 PLAN: Progress with strengthening and AROM to increase functional use of the right UE.
--- NOTE | 2017-07-21 11:12 | RS.OPPTDN ---
Subjective Date of Note: 07/21/17 Visit #: 12 Date of Evaluation: 06/20/17 Payer Source: MEDICARE Treatment Diagnosis: Right shoulder stiffness, weakness, pain. Current Subjective/complaints:: Patient reports she is doing better with reaching activities at home. States she has stiffness in the right upper arm early in the morning but gets better with activity. *Precautions: avoid extension Pain Assessment - Pain Description Pain Location: Right shoulder Current Pain Intensity: mild with activity Interventions - Exercise/Activities/Manual Therapy Exercises/Activities: PROM and AAROM. Increased to 6# wand for chest press and overhead flexion. Isometrics all directions of right shoulder including IR, ER, biceps and triceps. In supine, resistive flex, ext, chest press, scaption, and horizontal add with yellow theraband. Proprioception with 2# dumbell held overhead at 90 degrees shoulder flexion, cw and ccw [place]. Isometric IR holding ball and overhead ball toss. In sitting and standing, active reaching. Overhead diagonals while holding ball. Chest and overhead passing. Resistive flexion, scaption, and abduction to about shoulder height with 1# dumbell, 3sets of 5reps each. Cable pulleys with 10# for scap retraction and biceps curl. Total minutes of Exercise: 44mins Manual Therapy: NA HOME EXERCISE PROGRAM: pt given written HEP including: isometric shld flex, isometric shld abd/add, scapular retraction - Charges Timed Code Treatment Minutes: 44mins Total Treatment Time: 44mins Procedures billed for this date of service:: EX3 Assessment: Patient progressing with strengthening and active reaching activity. 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 Goal to be met by: 08/01/17 Progress towards goal: Met Goal #3: Right shoulder AROM improved to allow pt to perform light ADL's & selfcare. Goal to be met by: 08/01/17 Progress towards goal: Partially Met Goal #4: pt rate R shld pain <3 with activity Goal to be met by: 08/01/17 Progress towards goal: Progressing Plan PLAN OF CARE EXPIRES ON:: 08/01/17 ORDER # VISITS AND/OR THROUGH DATE: 08/01/17 PLAN: Progress AROM and strengthening of the right UE to increase patients functional activity level.
--- NOTE | 2017-07-25 12:10 | RS.OPPTDN ---
Subjective Date of Note: 07/25/17 Visit #: 13 Date of Evaluation: 06/20/17 Payer Source: MEDICARE Treatment Diagnosis: Right shoulder stiffness, weakness, pain. Current Subjective/complaints:: Reports reaching with right UE is slowly improving during daily activities. She has also been doing some work in her flower beds. *Precautions: avoid extension Pain Assessment - Pain Description Pain Location: Right shoulder and upper arm Current Pain Intensity: mild with activity Interventions - Exercise/Activities/Manual Therapy Exercises/Activities: PROM and AAROM. 6# wand for chest press and overhead flexion. UBE 2s/2mins. Isometrics all directions of right shoulder including IR , ER, biceps and triceps. In supine, resistive flex, ext, chest press, scaption , and horizontal add increased to red theraband. 2# dumbell for overhead flexion and scaption. Isometric IR holding ball and overhead ball toss. In sitting and standing, active reaching and resistive flexion, scap, and abd with 1# and 2# dumbells. Overhead diagonals while holding ball. Chest and overhead passing. Resistive flexion, scaption, and abduction to about shoulder height with 1# dumbell, 3sets of 5reps each. Cable pulleys with 10# for scap retraction and biceps curl. Over-handed pitching velcro ball to target. Ball on wall. End range self stretching at [employer]. Total minutes of Exercise: 43mins/47mins Manual Therapy: NA HOME EXERCISE PROGRAM: pt given written HEP including: isometric shld flex, isometric shld abd/add, scapular retraction - Objective Findings Observations,measurements,etc.: Active right shoulder flexion 104 degrees, Active assisted right shoulder flexion 143 degrees. 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 Patient Education: Home Exercise Program Patient demonstrates compliance with HEP?: Yes Short Term Goals Goal #1: pt report pain <5 with activity Goal to be met by: 07/11/17 Progress towards Goal:: Met Goal #2: Improve ROM R shld flex 130 abd 110, IR/ER 20 Goal to be met by: 08/01/17 Progress towards Goal:: Partially Met Goal #3: pt independent with initial HEP Goal to be met by: 07/11/17 Progress towards Goal:: Met Goal #4: pt with improved posture Goal to be met by: 07/11/17 Progress towards Goal:: Met Fpc Goals Goal #1: pt independent with HEP and able to continue HEP at home to continue gains Goal to be met by: 08/01/17 Progress towards goal: Partially Met Goal #2: Score on UE functional scale improved to less than 39% impairment. Goal to be met by: 08/01/17 Progress towards goal: Met Goal #3: Right shoulder AROM improved to allow pt to perform light ADL's & selfcare. Goal to be met by: 08/01/17 Progress towards goal: Partially Met Goal #4: pt rate R shld pain <3 with activity Goal to be met by: 08/01/17 Progress towards goal: Progressing Plan PLAN OF CARE EXPIRES ON:: 08/01/17 ORDER # VISITS AND/OR THROUGH DATE: 08/01/17 PLAN: Continue strengthening to increase patients functional activity level.
--- NOTE | 2017-07-30 15:21 | RS.OPPTDN ---
Subjective Date of Note: 07/30/17 Visit #: 14 Date of Evaluation: 06/20/17 Payer Source: MEDICARE Treatment Diagnosis: Right shoulder stiffness, weakness, pain. Current Subjective/complaints:: Patient reports she is doing more with the right UE. *Precautions: avoid extension Pain Assessment - Pain Description Pain Location: right shoulder Pain Description: Dull Interventions - Exercise/Activities/Manual Therapy Exercises/Activities: PROM and AAROM. 6# wand for chest press and overhead flexion. Isometrics all directions of right shoulder including IR, ER, biceps and triceps. In supine, resistive flex, ext, chest press, scaption, and horizontal add increased to green theraband. 2# dumbell for overhead flexion and scaption. Isometric IR holding ball and overhead ball toss. In sitting and standing, active reaching and resistive flexion, scap, and abd with 2# dumbells. Overhead diagonals while holding ball. Chest and overhead passing. Resistive flexion, scaption, and abduction to about shoulder height with 1# dumbell, 3sets of 5reps each. Ball on wall. Bouncing ball off wall and catching at shoulder height. Total minutes of Exercise: 39mins Manual Therapy: NA HOME EXERCISE PROGRAM: pt given written HEP including: isometric shld flex, isometric shld abd/add, scapular retraction - Charges Timed Code Treatment Minutes: 39mins Total Treatment Time: 39mins Procedures billed for this date of service:: EX3 Assessment: Patient progressing with active reaching and light strengthening. Patient Education: Home Exercise Program Patient demonstrates compliance with HEP?: Yes Short Term Goals Goal #1: pt report pain <5 with activity Goal to be met by: 07/11/17 Progress towards Goal:: Met Goal #2: Improve ROM R shld flex 130 abd 110, IR/ER 20 Goal to be met by: 08/01/17 Progress towards Goal:: Partially Met Goal #3: pt independent with initial HEP Goal to be met by: 07/11/17 Progress towards Goal:: Met Goal #4: pt with improved posture Goal to be met by: 07/11/17 Progress towards Goal:: Met Planner Chief Goals Goal #1: pt independent with HEP and able to continue HEP at home to continue gains Goal to be met by: 08/01/17 Progress towards goal: Partially Met Goal #2: Score on UE functional scale improved to less than 39% impairment. Goal to be met by: 08/01/17 Progress towards goal: Met Goal #3: Right shoulder AROM improved to allow pt to perform light ADL's & selfcare. Goal to be met by: 08/01/17 Progress towards goal: Partially Met Goal #4: pt rate R shld pain <3 with activity Goal to be met by: 08/01/17 Progress towards goal: Progressing Plan PLAN OF CARE EXPIRES ON:: 08/01/17 ORDER # VISITS AND/OR THROUGH DATE: 08/01/17 PLAN: Continue strengthening to increase patients functional use of the right UE.
== END 2017-07-31 23:59 ==
PROVIDERS: ATTEND Orthopaedic Surgery
DX: M25.511 Pain in right shoulder (principal); M25.60 Stiffness of unspecified joint, not elsewhere classified; M62.81 Muscle weakness (generalized); Z98.890 Other specified postprocedural states

== ENCOUNTER 2017-08-01 10:17 | Outpatient (RCR) ==
[2012-08-26 22:58] VITALS: TEMP 97.5
--- NOTE | 2017-08-01 12:18 | RS.OPPTDN ---
Subjective Date of Note: 08/01/17 Visit #: 15 Date of Evaluation: 06/20/17 Payer Source: MEDICARE Treatment Diagnosis: Right shoulder stiffness, weakness, pain. Current Subjective/complaints:: Patient reports she can perform most light to moderate ADL's at home, including some yardwork. She agrees she can continue HEP and will progress resistive exercises at tolerated. *Precautions: avoid extension Interventions - Exercise/Activities/Manual Therapy Exercises/Activities: PROM and AAROM. 8# wand for chest press and overhead flexion. Isometrics all directions of right shoulder including IR, ER, biceps and triceps. In supine, resistive flex, ext, chest press, scaption, and horizontal add with red and green theraband. Red theraband for UE diagonals. 2# dumbell for overhead flexion and scaption. Isometric IR holding ball and overhead ball toss. In sitting and standing, active reaching and resistive flexion, scap, and abd with 1 and 2# dumbells. Chest and overhead passing. Resistive flexion, scaption, and abduction to about shoulder height with 1# dumbell, 3sets of 5reps each. Ball on wall. Bouncing ball off wall and catching at shoulder height. Baseball throw of small velcro ball to target. Standing resistive shoulder x4 direction with yellow theraband. Total minutes of Exercise: 45mins Manual Therapy: NA HOME EXERCISE PROGRAM: pt given written HEP including: isometric shld flex, isometric shld abd/add, scapular retraction, red and yellow theraband for strengtheing, ball on wall, ball toss, wand in supine and sitting, PRE's with small weights - Objective Findings Observations,measurements,etc.: Patient increased score on FOM of Upper Extremity Functional Index to 68/80 or 15% deficit. (was 31/80 or 61% deficit on Eval). Active right shoulder flexion with only slight increase in the last 2 weeks at 107 degrees. - Charges Timed Code Treatment Minutes: 45mins Total Treatment Time: 45mins Procedures billed for this date of service:: EX3 Assessment: Patient has progressed well and appears at a plateau in progress with AROM. She has met all but one treatment goal, which is to increase AROM. She has increased her functional activity and FOM scores significantly. She should be able to continue HEP and progress strength and AROM. Patient Education: Body/Joint mechanics, Home Exercise Program, Home Safety, Activity Modification, Education of Plan of Care Comments: Discussion of all patient education, review of HEP, and patient given copies of exercises and new therabands. Patient demonstrates compliance with HEP?: Yes Short Term Goals Goal #1: pt report pain <5 with activity Goal to be met by: 07/11/17 Progress towards Goal:: Met Goal #2: Improve ROM R shld flex 130 abd 110, IR/ER 20 Goal to be met by: 08/01/17 Progress towards Goal:: Not Met Comments:: Has progressed with ROM but appears to be plateauing at this time. Goal #3: pt independent with initial HEP Goal to be met by: 07/11/17 Progress towards Goal:: Met Goal #4: pt with improved posture Goal to be met by: 07/11/17 Progress towards Goal:: Met Physical Scientist Goals Goal #1: pt independent with HEP and able to continue HEP at home to continue gains Goal to be met by: 08/01/17 Progress towards goal: Met Goal #2: Score on UE functional scale improved to less than 39% impairment. Goal to be met by: 08/01/17 Progress towards goal: Met Goal #3: Right shoulder AROM improved to allow pt to perform light ADL's & selfcare. Goal to be met by: 08/01/17 Progress towards goal: Met Comments: Score of 68/80 or 15% deficit on FOM. Goal #4: pt rate R shld pain <3 with activity Goal to be met by: 08/01/17 Progress towards goal: Met Plan PLAN OF CARE EXPIRES ON:: 08/01/17 ORDER # VISITS AND/OR THROUGH DATE: 08/01/17 PLAN: Discharge with HEP as patient has met 7 or 8 goals, has completed all orders, and is performing most functional ADL's.
--- NOTE | 2017-08-25 16:01 | RS.OPPTDC ---
Date of Discharge: 08/01/17 Date of Evaluation: 06/20/17 Number of Visits: 15 Treatment Diagnosis: Right shoulder stiffness, weakness, pain. Current Level of Function: pt active R shld flex WFL's 107 degrees, pt met 7 out of 8 goals. Current Complaints/Gains: pt states she is doing better, performing most light to mod ADL's. pt will continue with HEP. Had a f/u with MD and no further prescription ordered Functional Outcome Measure UE Functional Index: 68 (15%) - G Codes & Severity Modifier G Codes & Modifier: moving carrying, handling goal CJ. moving carrying, handling DC CI Source of G Code score: UE functional scale Observation - Observation Posture: Forward Head, Rounded Shoulders Gait - Gait Pattern General Gait Pattern Observation: No Deviations/Normal General Range of Motion: BLE WFL's. LUE WFL's. RUE shld flex WFL's 107 deg Interventions - Exercise/Activities/Manual Therapy Exercises/Activities: n/a Manual Therapy: NA HOME EXERCISE PROGRAM: pt given written HEP including: isometric shld flex, isometric shld abd/add, scapular retraction, red and yellow theraband for strengtheing, ball on wall, ball toss, wand in supine and sitting, PRE's with small weights - Charges Timed Code Treatment Minutes: n/a Total Treatment Time: n/a Procedures billed for this date of service:: n/a Assessment Assessment: pt has met 7 out of 8 goals. Patient Education: Home Exercise Program, Education of Plan of Care Rehab Potential: Good Short Term Goals Goal #1: pt report pain <5 with activity Goal to be met by: 07/11/17 Progress towards Goal:: Met Goal #2: Improve ROM R shld flex 130 abd 110, IR/ER 20 Goal to be met by: 08/01/17 Progress towards Goal:: Partially Met Goal #3: pt independent with initial HEP Goal to be met by: 07/11/17 Progress towards Goal:: Met Goal #4: pt with improved posture Goal to be met by: 07/11/17 Progress towards Goal:: Met Halfway Goals Goal #1: pt independent with HEP and able to continue HEP at home to continue gains Goal to be met by: 08/01/17 Progress towards goal: Met Goal #2: Score on UE functional scale improved to less than 39% impairment. Goal to be met by: 08/01/17 Progress towards goal: Met Goal #3: Right shoulder AROM improved to allow pt to perform light ADL's & selfcare. Goal to be met by: 08/01/17 Progress towards goal: Met Goal #4: pt rate R shld pain <3 with activity Goal to be met by: 08/01/17 Progress towards goal: Met Plan Reason for Discharge:: Maximum Potential Met
== END 2017-08-30 23:59 ==
PROVIDERS: ATTEND Orthopaedic Surgery
DX: Z47.31 Aftercare following explantation of shoulder joint prosthesis (principal); M25.511 Pain in right shoulder; M25.611 Stiffness of right shoulder, not elsewhere classified; M62.81 Muscle weakness (generalized)

== ENCOUNTER 2017-09-05 07:51 | Outpatient (CLI) | payer OTHER ==
[2012-08-26 22:58] VITALS: TEMP 97.5
== END 2017-09-05 07:52 | disposition home or self-care (01) ==
LOC: LAB 07:51
PROVIDERS: ATTEND Nurse Practitioner Family
DX: E78.2 Mixed hyperlipidemia (principal); I10 Essential (primary) hypertension; E03.2 Hypothyroidism due to medicaments and other exogenous substances
CPT/HCPCS: 36415; 80053; 80061; 84439; 84443; 85025

== ENCOUNTER 2017-10-28 16:12 | Emergency (ER) ==
[2017-10-28 16:18] VITALS: BP 167/81; TEMP 97.3; BMI 36.0
--- NOTE | 2017-10-28 17:27 | ED.PDOC ---
General ED Provider: Dr. PRABHAKAR SALINAS Chief Complaint: Abdominal Pain Stated Complaint: Has indigestion and frequent belcihing which helps alleviate her symptoms. Notice problem worsens with certain foods, spicey, gas forming foods. Denies chest pains. Occasionally notices palpitations but no chest pain or dyspnea/. Has been a long day and somewhat stressful as she had to take her grand daughers to [facility] earlier today for dr felix, Time Seen by Physician: 16:35 Mode of Arrival: Wheelchair Information Source: Patient Primary Care Provider: ANSLEY FLYNN Nursing and Triage Documentation Reviewed and Agree: Yes Does patient meet sepsis criteria?: No System Inflammatory Response Syndrome: Not Applicable Sepsis Protocol: For patient's 13 years and over: Temp is 96.8 and below OR 101 and greater Pulse >90 BPM Resp >20/minute Acutely Altered Mental Status Are patient's symptoms suggestive of a new infection, such as: -Pneumonia -Skin, Soft Tissue -Endocarditis -UTI -Bone, Joint Infection -Implantable Device -Acute Abdominal Infection -Wound Infection -Meningitis -Blood Stream Catheter Infection -Unknown Cardiovascular Complaint Exam - Palpitations Complaint/Exam Symptoms Are: Resolved Timing: Intermittent Initial Severity: Mild Current Severity: None Character: Reports: Skipped beats Aggravating: Reports: Caffeine (stress) Alleviating: Reports: Rest Associated Signs and Symptoms: Denies: Lightheadedness, Dizziness, Syncope, Chest pain, Shortness of breath, Diaphoresis, Nausea, Vomiting Related Surgical History: Reports: None Cardiac Risk Factors: Reports: Hypertension, Elevated lipids Pulmonary Embolism Risk Factors: Reports: None Atrial Fibrillation Risk Factors: Reports: None Thyroid Exam: Normal Differential Diagnoses: Other (anxiety; GERD) Quality Indicators for AMI: EKG in 10min. Quality Indicator For Non-Traumatic Chest Pain/Syncope: EKG Performed Review of Systems - Review Of Systems Constitutional: Reports: No symptoms Eyes: Reports: No symptoms Ears, Nose, Mouth, Throat: Reports: No symptoms Respiratory: Reports: No symptoms Cardiac: Reports: No symptoms GI: Reports: No symptoms, Other (acid reflux) : Reports: No symptoms Musculoskeletal: Reports: No symptoms Skin: Reports: No symptoms Neurological: Reports: No symptoms Endocrine: Reports: No symptoms Hematologic/Lymphatic: Reports: No symptoms All Other Systems: Reviewed and Negative Past Medical History - Past Medical History Previously Healthy: No Endocrine: Reports: Hypothyroid Cardiovascular: Reports: None Respiratory: Reports: None Hematological: Reports: None Gastrointestinal: Reports: GERD Genitourinary: Reports: None Neuro/Psych: Reports: Migraine Musculoskeletal: Reports: Arthritis Cancer: Reports: None Last Menstrual Period: none - Surgical History General Surgical History: Reports: Tubal ligation (TUBAL LIGATION 1976), Cholecystectomy (CHOLECYSTYECTOMY 1970), Other (intraoccular lens replacement on left eye.) - Family History Family History: Reports: Unknown - Social History Smoking Status: Current every day smoker, Light tobacco smoker Hx Substance Use: No Alcohol Screening: None Physical Exam - Physical Exam Appearance: Well-appearing, No pain distress, Well-nourished Ill-appearing: None Pain Distress: None Eyes: JAMMIE, EOMI, Conjunctiva clear ENT: Ears normal, Nose normal, Oropharynx normal Respiratory: Airway patent, Breath sounds clear, Breath sounds equal, Respirations nonlabored Cardiovascular: RRR, Pulses normal, No rub, No murmur GI/: Soft, No masses, Bowel sounds normal, No Organomegaly, Tender (minimal midepigastic) Musculoskeletal: Normal strength, ROM intact, No edema, No calf tenderness Skin: Warm, Dry, Normal color Neurological: Sensation intact, Motor intact, Reflexes intact, Cranial nerves intact, Alert, Oriented Psychiatric: Affect appropriate, Mood appropriate Re-Evaluation - Re-Evaluation Time of Re-Evaluation: 18:45 Status: Improved Vital Signs Stable: Yes Appearance: NAD Lungs: Clear Skin: Warm and Dry Neuro: Alert and Oriented X3 CV: RRR Additional Comments: Results of testing reviewed. Critical Care Note - Critical Care Note Total Time (mins): 0 Course - Course Hematology/Chemistry: 10/28/17 17:40 10/28/17 17:40 Orders, Labs, Meds: Lab Review 10/28/17 10/28/17 17:40 17:40 WBC 8.67 RBC 3.89 L Hgb 11.8 L Hct 35.1 L MCV 90.2 MCH 30.3 MCHC 33.6 RDW Coeff of Oly 13.4 Plt Count 240 Immature Gran % (Auto) 0.2 Neut % (Auto) 51.4 Lymph % (Auto) 34.4 Owsley % (Auto) 10.3 H Eos % (Auto) 3.1 Baso % (Auto) 0.6 Immature Gran # (Auto) 0.0 Neut # (Auto) 4.5 Lymph # (Auto) 3.0 Owsley # (Auto) 0.9 Eos # (Auto) 0.3 Baso # (Auto) 0.1 Sodium 141 Potassium 3.8 Chloride 105 Carbon Dioxide 28 Anion Gap 11.8 BUN 14 Creatinine 0.77 Estimated GFR (MDRD) 75.00 BUN/Creatinine Ratio 18.18 Glucose 85 Calcium 9.7 Magnesium 2.0 Total Bilirubin 0.4 AST 21 ALT 17 Alkaline Phosphatase 88 Total Creatine Kinase 179 CK-MB (CK-2) 2.7 CK-MB (CK-2) % 1.92176 Troponin I 0.0210 Total Protein 7.6 Albumin 3.4 Globulin 4.2 Albumin/Globulin Ratio 0.81 Lipase 7 L Orders Category Date Time Status EKG-(ED ONLY) Stat CARDIO 10/28/17 17:24 Completed CBC W/ AUTO DIFF Stat LAB 10/28/17 17:40 Completed CMP [COMPREHENSIVE METABOLIC PANEL] Stat LAB 10/28/17 17:40 Completed CPK [CREATINE KINASE] Stat LAB 10/28/17 17:40 Completed LIPASE Stat LAB 10/28/17 17:40 Completed MAGNESIUM Stat LAB 10/28/17 17:40 Completed TROPONIN I Stat LAB 10/28/17 17:40 Completed Vital Signs: Temp Pulse Resp BP Pulse Ox 10/28/17 16:15 97.3 F L 70 18 167/81 H 95 TEODORO Risk Score TEODORO Risk Score: Risk Score Odds of by 30D 0 0.1 (0.1-0.2) 1 0.3 (0.2-0.3) 2 0.4 (0.3-0.5) 3 0.7 (0.6-0.9) 4 1.2 (1.0-1.5) 5 2.2 (1.9-2.6) 6 3.0 (2.5-3.6) 7 4.8 (3.8-6.1) Departure - Departure Time of Disposition: 18:50 Disposition: HOME SELF-CARE Discharge Problem: GERD (gastroesophageal reflux disease), PAC (premature atrial contraction) Instructions: Gastroesophageal Reflux Disease (ED), Indigestion (ED) Condition: Good Pt referred to PMD for follow-up: Yes (1 wk) IPMP verified?: No Additional Instructions: Remain on bland, fat free diet-avoid cabbage, and other foods which cause problems\ Take meds as directed Follow instructions as provided Restrict Caffeine containing beverages. Prescriptions: Omeprazole [Prilosec] 20 mg PO BIDAC #30 capsule.dr Allergies/Adverse Reactions: Allergies strawberry Allergy (Unknown, Verified 10/28/17 16:19) morphine Adverse Reaction (Intermediate, Verified 10/28/17 16:19) Chest Tightness tomatoes Allergy (Unknown, Uncoded 05/30/16 15:01) Home Medications: Ambulatory Orders Ranitidine HCl 150 mg PO BID 08/26/12 Levothyroxine Sodium 125 mcg PO DAILY 06/08/15 Potassium Chloride 10 meq PO DAILY 06/08/15 Ibuprofen 800 mg PO PRN PRN 08/18/15 Venlafaxine HCl [Effexor Xr] 150 mg PO DAILY 08/18/15 Budesonide/Formoterol Fumarate [Symbicort 80-4.5 Mcg Inhaler] 2 puff IH BID Cyanocobalamin (Vitamin B-12) [Vitamin B12] 2,500 mcg PO QAM 08/24/15 Gabapentin 600 mg PO TID 08/24/15 Lisinopril/Hydrochlorothiazide [Lisinopril-Hctz 20-12.5 mg Tab] 1 tab PO DAILY 08/24/15 Epinephrine [Epipen Twinpak] 0.3 mg IM PRN PRN #1 pen.injctr 12/30/15 Oxybutynin Chloride [Ditropan Xl] 5 mg PO TID 12/30/15 Oxycodone-Acetaminophe 7.5-325 [Percocet 7.5-325] 1 tab PO ONCE 12/30/15 Mirabegron [Myrbetriq] 50 mg PO DAILY 05/30/16 Albuterol Sulfate 0.083% Neb [Albuterol 0.083% Neb] 1 vial NEB PRN PRN 10/28/17 Aspirin [Aspirin Chewable] 81 mg PO DAILYWM 10/28/17 Baclofen 10 mg PO DAILY 10/28/17 Buspirone HCl 10 mg PO BID 10/28/17 Calcium Carbonate/Vitamin D3 [Calcium 600 + Vit D Tablet] 1 each PO DAILY Celecoxib [Celebrex] 200 mg PO DAILY 10/28/17 Cilostazol [Pletal] 100 mg PO BID 10/28/17 Cyanocobalamin (Vitamin B-12) [Vitamin B-12] 100 mcg PO DAILY 10/28/17 Omeprazole [Prilosec] 20 mg PO BIDAC #30 capsule. 10/28/17 Simvastatin [Zocor] 20 mg PO DAILY 10/28/17 Disposition Discussed With: Patient, Family
== END 2017-10-28 19:20 | disposition home or self-care (01) ==
LOC: ED 16:12
DX: K21.9 Gastro-esophageal reflux disease without esophagitis (principal); I49.1 Atrial premature depolarization; I10 Essential (primary) hypertension; E78.5 Hyperlipidemia, unspecified; E03.9 Hypothyroidism, unspecified; F17.210 Nicotine dependence, cigarettes, uncomplicated; Z79.899 Other long term (current) drug therapy
CPT/HCPCS: 36415; 80053; 82550; 82553; 83690; 83735; 84484; 85025; 93005; 93010; 99283

== ENCOUNTER 2017-11-18 10:21 | Inpatient (IN) | payer OTHER ==
[2017-11-18] MEDS ORDERED: SODIUM CHLORIDE 1,000 ML IV STA (11:30)
--- NOTE | 2017-11-18 12:43 | CT ---
EXAM: CT of the chest without contrast History: Cough. Fever and chills Comparison: CT abdomen pelvis 11/18/2017, chest CT 11/06/2016 Technique: Multiplanar CT images through the thorax were obtained without the administration of IV c ontrast Findings: Heart size is normal. Mitral valve calcifications. No pericardial effusion. No thoracic aortic aneurysm. No pathologically enlarged thoracic lymph nodes. Calcified granulomas again seen within the thorax. Mild bilateral ground-glass infiltrates. No suspicious lung masses or lung nodule s. No pleural fluid and no pneumothorax. For details in the upper abdomen, please see dedicated CT abdomen pelvis done on the same day. No ac ean osseous abnormalities. Right shoulder arthroplasty. Impression: 1. Mild bilateral pneumonitis. 2. Mitral valve calcifications
--- NOTE | 2017-11-18 12:44 | CT ---
EXAM: CT Abdomen without contrast. CT Pelvis without contrast. HISTORY: Generalized abdominal pain. COMPARISON: 08/23/2015. TECHNIQUE: Multiple axial images of the abdomen and pelvis were obtained without intravenous contras t. Images were reformatted in the sagittal and coronal plane. FINDINGS: Please note that evaluation of the abdominal and pelvic structures is limited due to lack of intravenous contrast. Ground-glass opacities in the lung bases may be accentuated by respiratory motion. Refer to chest CT report for details. Degenerative changes present in the spine. Gallbladder not seen. The liver, pancreas, spleen, adrenal glands, and kidneys demonstrate normal co ntour save for a partially exophytic posterior right renal cyst. No calcified renal stones or hydron ephrosis identified. The bowel is normal in course and caliber without evidence for obstruction or inflammatory process. The appendix is normal. Colonic diverticulosis noted. Tiny fat-containing umbilical hernia is prese nt. Atherosclerotic calcifications are present. Uterus demonstrates normal contour. Urinary bladde r is unremarkable. No free fluid or free air identified. IMPRESSION: No acute abnormality within the abdomen or pelvis.
[2017-11-18] MEDS ORDERED: ROCEPHIN 1 GM in SODIUM CHLORIDE 50 ML IV STA (13:33)
--- NOTE | 2017-11-18 13:37 | ED.PDOC ---
General ED Provider: Dr. SAMAN COLVIN Chief Complaint: Fever Stated Complaint: n, v, cough, Time Seen by Physician: 10:23 (nurse present at bedside ) Mode of Arrival: Ambulance Information Source: Patient, EMT Exam Limitations: No limitations Primary Care Provider: ANSLEY FLYNN Nursing and Triage Documentation Reviewed and Agree: Yes Does patient meet sepsis criteria?: Yes If yes, has appropriate treatment been initiated?: No System Inflammatory Response Syndrome: Not Applicable Sepsis Protocol: For patient's 13 years and over: Temp is 96.8 and below OR 101 and greater Pulse >90 BPM Resp >20/minute Acutely Altered Mental Status Are patient's symptoms suggestive of a new infection, such as: -Pneumonia -Skin, Soft Tissue -Endocarditis -UTI -Bone, Joint Infection -Implantable Device -Acute Abdominal Infection -Wound Infection -Meningitis -Blood Stream Catheter Infection -Unknown GI Complaint Exam - Abdominal Pain Complaint/Exam Onset: Gradual (pt was stated by her to be fine 1 day ago) Duration: pt woke up about 9 am c/0 chills and feeling hot, temp was 102.6 Symptoms Are: Still present Timing: Intermittent Initial Severity: Moderate Current Severity: Moderate Radiates To: Denies: Chest, Back, Flank, LLQ, RLQ, Inguinal Aggravating: Reports: None (pt was short of breath this morning) Associated Signs and Symptoms: Reports: Cough, Nausea, Vomiting. Denies: Diaphoresis, Fever, Chest pain, Dizziness, Back pain, Constipation, Blood in stool, Dysuria, Urinary frequency, Decreased urine output, Decreased appetite, Vaginal bleeding, Vaginal discharge, Diarrhea, Sore throat, Decreased activity AAA Risk Factors: Reports: Smoking, Hypertension Cardiac Risk Factors: Reports: DM, Hypertension, Smoking, Elevated lipids Ovarian Torsion Risk Factors: Reports: None Surgical Obstruction Risk Factors: Reports: None ( pt's said pt tried to vomit (dry heaves) ) Related Surgical History: Reports: Tubal ligation Patient Rh Status: Unknown Differential Diagnoses: Appendicitis, Bowel Obstruction, Constipation, Pneumonia Quality Indicators for AMI: EKG in 10min. Quality Indicators for Cardiac Chest Pain: EKG in 10min. Quality Indicator For Non-Traumatic Chest Pain/Syncope: EKG Performed Review of Systems - Review Of Systems Constitutional: Reports: Fever, Malaise, Weakness Eyes: Reports: No symptoms Ears, Nose, Mouth, Throat: Reports: No symptoms Respiratory: Reports: Cough Cardiac: Reports: No symptoms GI: Reports: Nausea, Poor appetite, Poor fluid intake : Reports: No symptoms Musculoskeletal: Reports: No symptoms Skin: Reports: No symptoms Neurological: Reports: No symptoms Endocrine: Reports: No symptoms Hematologic/Lymphatic: Reports: No symptoms All Other Systems: Reviewed and Negative Past Medical History - Past Medical History Previously Healthy: No Endocrine: Reports: Hypothyroid Cardiovascular: Reports: None Respiratory: Reports: None Hematological: Reports: None Gastrointestinal: Reports: GERD Genitourinary: Reports: None Neuro/Psych: Reports: Migraine Musculoskeletal: Reports: Arthritis Cancer: Reports: None Last Menstrual Period: menopause - Surgical History General Surgical History: Reports: Tubal ligation (TUBAL LIGATION 1976), Cholecystectomy (CHOLECYSTYECTOMY 1970), Other (intraoccular lens replacement on left eye.) - Family History Family History: Reports: Unknown - Social History Smoking Status: Current every day smoker, Light tobacco smoker Hx Substance Use: No Alcohol Screening: None Physical Exam - Physical Exam Appearance: Ill-appearing Ill-appearing: Mild Pain Distress: Mild Eyes: JAMMIE, EOMI, Conjunctiva clear ENT: Dry mucosa Respiratory: Airway patent, Breath sounds clear, Breath sounds equal, Respirations nonlabored Cardiovascular: RRR, Pulses normal, No rub, No murmur GI/: Soft, Nontender (the abdominal exam with may ramirez at bedside was benign ) Musculoskeletal: Normal strength, ROM intact, No edema, No calf tenderness Skin: Warm, Dry, Normal color Neurological: Sensation intact, Motor intact, Reflexes intact, Cranial nerves intact, Alert, Oriented Psychiatric: Affect appropriate, Mood appropriate Interpretation - Radiology Interpretation Radiology Interpretation By: Radiologist Radiology Results: Positive (PNEUMONITIS BILATERAL) - Visual Lead Rate: Normal Rhythm: Sinus Ectopy: None - EKG Interpretation Rate: Normal Rhythm: Sinus Ectopy: None [place]: NL ST Segment: Normal Re-Evaluation - Re-Evaluation Time of Re-Evaluation: 13:40 (MAY RAMIREZ PRESENT AT BEDSIDE ) Status: Improved Vital Signs Stable: Yes Pain Level: 0 Appearance: NAD Lungs: Clear Skin: Warm and Dry Neuro: Alert and Oriented X3 CV: RRR Additional Comments: abdominal exam was WNL TIME 1:40 PM Physician Notification - Case Discussed Physician Notified: NATE ROBERTS Time of Notification: 13:46 (ADMITT) Admit To: Inpatient Critical Care Note - Critical Care Note Total Time (mins): 0 Course - Course Hematology/Chemistry: 11/18/17 11:45 11/18/17 11:45 Orders, Labs, Meds: Lab Review 11/18/17 11/18/17 11/18/17 11:45 11:45 11:45 WBC 15.22 H RBC 3.97 L Hgb 12.0 Hct 35.3 L MCV 88.9 MCH 30.2 MCHC 34.0 RDW Coeff of Oly 13.9 Plt Count 261 Immature Gran % (Auto) 0.3 Neut % (Auto) 81.0 Lymph % (Auto) 9.8 L [place] % (Auto) 8.2 Eos % (Auto) 0.4 Baso % (Auto) 0.3 Immature Gran # (Auto) 0.0 Neut # (Auto) 12.3 H Lymph # (Auto) 1.5 [place] # (Auto) 1.3 Eos # (Auto) 0.1 Baso # (Auto) 0.1 Puncture Site O2 Saturation ABG pH ABG pCO2 ABG pO2 ABG HCO3 ABG Total CO2 ABG Base Excess Dao Test FiO2 % Sodium 135.7 L Potassium 4.04 Chloride 100.0 Carbon Dioxide 27.8 Anion Gap 11.94 BUN 15.6 Creatinine 0.87 Estimated GFR (MDRD) 65.00 BUN/Creatinine Ratio 17.93 Glucose 138.1 H Lactic Acid 0.97 Calcium 9.60 Total Bilirubin 0.45 AST 22.4 ALT 15.9 Alkaline Phosphatase 110.7 Total Creatine Kinase 52.1 Troponin I 0.042 Total Protein 8.20 Albumin 4.12 Globulin 4.08 Albumin/Globulin Ratio 1.00 Procalcitonin 11/18/17 11/18/17 11:45 11:55 WBC RBC Hgb Hct MCV MCH MCHC RDW Coeff of Oly Plt Count Immature Gran % (Auto) Neut % (Auto) Lymph % (Auto) [place] % (Auto) Eos % (Auto) Baso % (Auto) Immature Gran # (Auto) Neut # (Auto) Lymph # (Auto) [place] # (Auto) Eos # (Auto) Baso # (Auto) Puncture Site R rad O2 Saturation 97.0 ABG pH 7.518 H* ABG pCO2 30.1 L ABG pO2 76.0 L ABG HCO3 24.5 ABG Total CO2 25 ABG Base Excess 2 Dao Test + FiO2 % 21.0 Sodium Potassium Chloride Carbon Dioxide Anion Gap BUN Creatinine Estimated GFR (MDRD) BUN/Creatinine Ratio Glucose Lactic Acid Calcium Total Bilirubin AST ALT Alkaline Phosphatase Total Creatine Kinase Troponin I Total Protein Albumin Globulin Albumin/Globulin Ratio Procalcitonin < 0.05 Orders Category Date Time Status ABG DRAW REQUEST Stat CARDIO 11/18/17 11:28 Completed EKG-(ED ONLY) Stat CARDIO 11/18/17 11:28 Completed ED IV/MEDIPORT/POWERPORT .ONCE EMERGENCY 11/18/17 11:28 Active ABG Stat LAB 11/18/17 11:55 Completed CBC W/ AUTO DIFF Stat LAB 11/18/17 11:45 Completed COMPREHENSIVE METABOLIC PANEL Stat LAB 11/18/17 11:45 Completed CREATINE KINASE Stat LAB 11/18/17 11:45 Completed LACTIC ACID Stat LAB 11/18/17 11:45 Completed PROCALCITONIN Stat LAB 11/18/17 11:45 Completed TROPONIN I Stat LAB 11/18/17 11:45 Completed 0.9 % Sodium Chloride [Saline Flush] MEDS 11/18/17 11:28 Active 1 syr IVF PRN PRN Ceftriaxone Sodium [Rocephin] 1 gm MEDS 11/18/17 13:33 Ordered 0.9 % Sodium Chloride [Sodium Chloride] 50 ml IV ONCE Sodium Chloride 0.9% [Sodium Chloride] 1,000 ml MEDS 11/18/17 11:30 Active IV 125 mls/hr CT ABDOMEN/PELVIS WO CONTRAST Stat RADS 11/18/17 11:[address] CHEST W/O CONTRAST Stat RADS 11/18/17 11:29 Completed Medications Generic Name Dose Route Start Last Admin Trade Name Freq PRN Reason Stop Dose Admin Sodium Chloride 1,000 mls @ 125 mls/hr 11/18/17 11:30 11/18/17 11:44 Sodium Chloride IV 11/18/17 19:29 125 mls/hr .Q8H STA Administration Ceftriaxone Sodium 1 gm/ 50 mls @ 75 mls/hr 11/18/17 13:33 Sodium Chloride IV 11/18/17 14:12 ONCE STA Sodium Chloride 1 syr 11/18/17 11:28 11/18/17 11:44 Saline Flush IVF 1 syr PRN PRN Administration To flush IV Vital Signs: Temp Pulse Resp BP Pulse Ox 11/18/17 10:23 102.3 F H 95 H 24 165/72 H 94 L Departure - Departure Time of Disposition: 13:46 Disposition: ADMITTED INPATIENT Discharge Problem: Fever Pneumonia Qualifiers: Pneumonia type: due to unspecified organism Laterality: bilateral Lung location : unspecified part of lung Qualified Code(s): J18.9 - Pneumonia, unspecified organism Condition: Good Pt referred to PMD for follow-up: Yes IPMP verified?: No Additional Instructions: Please call your Family Physician as soon as possible to schedule a follow-up appointment. Allergies/Adverse Reactions: Allergies strawberry Allergy (Unknown, Verified 11/18/17 10:31) morphine Adverse Reaction (Intermediate, Verified 11/18/17 10:31) Chest Tightness tomatoes Allergy (Unknown, Uncoded 05/30/16 15:01) Home Medications: Ambulatory Orders Ranitidine HCl 150 mg PO BID 08/26/12 Levothyroxine Sodium 125 mcg PO DAILY 06/08/15 Potassium Chloride 10 meq PO DAILY 06/08/15 Ibuprofen 800 mg PO PRN PRN 08/18/15 Venlafaxine HCl [Effexor Xr] 150 mg PO DAILY 08/18/15 Budesonide/Formoterol Fumarate [Symbicort 80-4.5 Mcg Inhaler] 2 puff IH BID Cyanocobalamin (Vitamin B-12) [Vitamin B12] 2,500 mcg PO QAM 08/24/15 Gabapentin 600 mg PO TID 08/24/15 Lisinopril/Hydrochlorothiazide [Lisinopril-Hctz 20-12.5 mg Tab] 1 tab PO DAILY 08/24/15 Epinephrine [Epipen Twinpak] 0.3 mg IM PRN PRN #1 pen.injctr 12/30/15 Oxybutynin Chloride [Ditropan Xl] 5 mg PO TID 12/30/15 Oxycodone-Acetaminophe 7.5-325 [Percocet 7.5-325] 1 tab PO ONCE 12/30/15 Mirabegron [Myrbetriq] 50 mg PO DAILY 05/30/16 Albuterol Sulfate 0.083% Neb [Albuterol 0.083% Neb] 1 vial NEB PRN PRN 10/28/17 Aspirin [Aspirin Chewable] 81 mg PO DAILYWM 10/28/17 Baclofen 10 mg PO DAILY 10/28/17 Buspirone HCl 10 mg PO BID 10/28/17 Calcium Carbonate/Vitamin D3 [Calcium 600 + Vit D Tablet] 1 each PO DAILY Celecoxib [Celebrex] 200 mg PO DAILY 10/28/17 Cilostazol [Pletal] 100 mg PO BID 10/28/17 Omeprazole [Prilosec] 20 mg PO BIDAC #30 capsule. 10/28/17 Simvastatin [Zocor] 20 mg PO DAILY 10/28/17 Disposition Discussed With: Patient, Family
[2017-11-18] MEDS ORDERED: ROCEPHIN ONE (13:55)
[2017-11-18] MEDS ORDERED: ZITHROMAX 500 MG in SODIUM CHLORIDE 250 ML IV STA (13:57)
[2017-11-18] MEDS ORDERED: SODIUM CHLORIDE 1,000 ML IV SCH (14:00)
[2017-11-18] MEDS ORDERED: DILAUDID 0.5 MG/0.5 ML SYRINGE IVP STA (14:03)
[2017-11-18] MEDS ORDERED: NON-FORMULARY MEDICATION (Gabapentin [Gabapentin] 600 MG) PO SCH (15:00)
[2017-11-18] MEDS ORDERED: DITROPAN XL PO SCH (15:00)
[2017-11-18] MEDS: DITROPAN PO SCH ×2 (15:09→20:20)
[2017-11-18] MEDS: NEURONTIN PO SCH ×2 (15:09→20:20)
[2017-11-18] MEDS ORDERED: DILAUDID 1 MG/ML SYRINGE IVP STA (15:16)
[2017-11-18 15:28] VITALS: BMI 37.6
[2017-11-18] MEDS ORDERED: DILAUDID 2 MG/ML SDV IVP STA (15:28)
[2017-11-18] MEDS ORDERED: DILAUDID 2 MG/ML SDV ONE (15:33)
[2017-11-18] MEDS: PRILOSEC PO SCH (16:11)
[2017-11-18] MEDS: ZANTAC PO SCH (16:11)
[2017-11-18] MEDS ORDERED: TORADOL IVP PRN (18:10)
[2017-11-18] MEDS ORDERED: TYLENOL PO PRN (18:11)
[2017-11-18] MEDS: SYMBICORT 80-4.5 MCG INHALER IH SCH (20:19)
[2017-11-18] MEDS: PLETAL PO SCH (20:20)
[2017-11-18] MEDS ORDERED: NON-FORMULARY MEDICATION (Ranitidine Hcl [Ranitidine Hcl] 150 MG) PO SCH (21:00)
[2017-11-18] MEDS ORDERED: SOLU-MEDROL 40 MG IVP SCH (21:00)
[2017-11-18] MEDS: SOLU-MEDROL 40 MG IVP SCH (23:41)
[2017-11-18] MEDS: SODIUM CHLORIDE 1,000 ML IV SCH (23:41)
[2017-11-19] MEDS: SYNTHROID PO SCH ×2 (05:50)
[2017-11-19] MEDS: SOLU-MEDROL 40 MG IVP SCH ×3 (05:50→17:00)
[2017-11-19] MEDS: PRILOSEC PO SCH ×2 (05:51→17:00)
[2017-11-19] MEDS: ZANTAC PO SCH ×2 (05:51→17:00)
[2017-11-19] MEDS: PLETAL PO SCH ×2 (08:29→21:13)
[2017-11-19] MEDS: ROCEPHIN 1 GM in SODIUM CHLORIDE 50 ML IV SCH (08:29)
[2017-11-19] MEDS: ZITHROMAX PO SCH (08:29)
[2017-11-19] MEDS: SYMBICORT 80-4.5 MCG INHALER IH SCH ×2 (08:29→21:12)
[2017-11-19] MEDS: DITROPAN PO SCH ×3 (08:30→21:13)
[2017-11-19] MEDS: NEURONTIN PO SCH ×3 (08:30→21:13)
[2017-11-19] MEDS: ASPIRIN CHEWABLE PO SCH (08:30)
[2017-11-19] MEDS: CALCIUM 500 + VIT D 200 MG TABLET PO SCH (08:30)
[2017-11-19] MEDS: BACLOFEN PO SCH (08:30)
[2017-11-19] MEDS: EFFEXOR XR PO SCH (08:30)
[2017-11-19] MEDS: MICRO-K CAP PO SCH (08:31)
[2017-11-19] MEDS: ZOCOR PO SCH (08:31)
[2017-11-19] MEDS: ZESTORETIC 20-12.5 MG TAB PO SCH (08:31)
[2017-11-19] MEDS: MYRBETRIQ PO SCH (08:31)
[2017-11-19] MEDS ORDERED: NON-FORMULARY MEDICATION (Potassium Chloride [Potassium Chloride] 10 MEQ) PO SCH (09:00)
[2017-11-19] MEDS ORDERED: NON-FORMULARY MEDICATION (Mirabegron [Myrbetriq] 50 MG) PO SCH (09:00)
[2017-11-19] MEDS ORDERED: NON-FORMULARY MEDICATION (Calcium Carbonate/Vitamin D3 [Calcium 600 + Vit D Tablet] 1 EACH PO SCH (09:00)
[2017-11-19] MEDS ORDERED: NON-FORMULARY MEDICATION (Simvastatin [Zocor] 20 MG) PO SCH (09:00)
[2017-11-19] MEDS ORDERED: NON-FORMULARY MEDICATION (Venlafaxine Hcl [Effexor Xr] 150 MG) PO SCH (09:00)
[2017-11-19] MEDS ORDERED: SYNTHROID PO SCH (09:00)
[2017-11-19] MEDS ORDERED: XOPENEX 1.25 MG NEB SCH (10:00)
[2017-11-19] MEDS: XOPENEX 1.25 MG NEB SCH ×3 (11:11→23:30)
[2017-11-19] MEDS: NON-FORMULARY MEDICATION (Cyanocobalamin (Vitamin B-12) [Vitamin B12] 2,500 MCG) PO SCH (11:24)
[2017-11-19] MEDS: SODIUM CHLORIDE 1,000 ML IV SCH (14:50)
--- NOTE | 2017-11-19 15:55 | RS.OTINEVL ---
Subjective - Patient information Date of Evaluation: 11/19/17 Date of Arrival on Unit: 11/18/17 Admitted From:: Emergency Dept Usual Living Arrangement: With Spouse Living Arrangement Comments: Lives with spouse Home Environment: House Medical History: Hypertension, COPD Medical History Comments:: Pt has had Right shoulder replacement. Pt has psych problems, anxiety, OA, DDD, Left eye surgery, COPD, Gall bladder removed, pnuemonia Surgical History: Shoulder Replacement Surgical History Comments:: Right shoulder repaired, tubal surgery, Left eye surgery,gall bladder removed. Subjective Information/ Patient Comments:: I am hurting in this shoulder. I have pnuemonia. - Level of function Abilities prior to this admission: Pt reports she lives at home with he and she drives herself. Pt reports she has trouble with the Right arm due to pain and weakness. Current Level of Function: Partially Dependent Current Equipment Used at Home: none Pain Assessment - Pain Pain Score: 2 Side: right Pain Aggravating Factors: ADL's, Changing Position Pain Alleviating Factors: Medication Interventions - Objective Patient Orientation: Person, Place, Time, Situation Current Interventions: IV's, Telemetry Observation: Pt is hurting in the RUE and has limited AROM. Pt has weakness of the RUE. Interventions - ROM Right Upper Extremity AROM: Moderate limitation Left Upper Extremity AROM: WFL's - Strength Right Upper Extremity Strength: Severe Weakness Left Upper Extremity Strength: Mild Weakness - Sensation Right Upper Extremity Sensation: Intact/Normal Left Upper Extremity Sensation: Intact/Normal Balance - Sitting Balance Static Sitting Balance: Good Dynamic Sitting Balance: Good - Standing Balance Static Standing Balance: Fair Dynamic Standing Balance: Fair ADL Skills - Self Feeding Self Feeding: Independent - Grooming Grooming: Independent - Bathing Bathing UE: Min Assist Bathing LE: Min Assist - Dressing Dressing UE: Min Assist Dressing LE: Min Assist Functional Mobility - Bed Mobility Rolling R/L: Min Assist Scooting: Independent Supine to Sit: Independent Sit to Supine: Independent - Transfers Sit to Stand: Supervision Stand to Sit: Supervision Stand Pivot Transfers: Supervision AMBREEN INDEX SCORE: . Additional Treatment Performed - Time with patient Length of Evaluation: 20 Total treatment time: 20 Activities Patient Interests:: Watching Television Patient Education Patient Education: Education of diagnosis, Home Exercise Program, Home Safety, Education of Plan of Care Teaching Recipient: Patient Teaching Methods: Teach Back Method Used, Discussion Assessment Problem List:: Decreased level of function, Requires training/education, Decreased safety/Risk of falls, Weakness Rehab Potential: Good Further Therapy Indicated?: Yes Candidate for Swing Bed for Therapy Services?: no Evaluation Complexity: HISTORY: Medium, EXAM OF BODY SYSTEMS: Medium, CLINICAL DECISION MAKING: Medium Short Term Goals - Goals GOAL 1: Pt to increase RUE shoulder flexion to 105 degrees. Goal to be met by: 11/21/17 GOAL 2: Pt to increase RUE strength to 4-/5. Goal to be met by: 11/21/17 GOAL 3: Pt to be CGA for sink level ADLS. Goal to be met by: 11/21/17 Custodial Goals GOAL 1: Pt to increase RUE shoulder flexion to 115 degrees. Goal to be met by: 11/24/17 GOAL 2: Pt to increase RUE strength to 4-/5. Goal to be met by: 11/24/17 GOAL 3: Pt to be Ind. for sink level ADLS. Goal to be met by: 11/24/17 Plan Plan of Care: Therapeutic EX, Neuromuscular Re-Educ, Therapeutic Activity, Self- Care/Home Management Modalities: Ultrasound, Electrical Stimulation Frequency of Treatment: 1-2 X day, as tolerated Duration of Treatment: 1 Week Anticipated Discharge Destination: Home Treatment Diagnosis (ICD 10 Codes): M62.81 Muscle Weakness,. Right shoulder pain M25.511. M25.61 Shoulder stiffness Has the Physician been added for Co-signature?: Yes
[2017-11-20] MEDS: SOLU-MEDROL 40 MG IVP SCH ×2 (00:28→05:39)
[2017-11-20] MEDS: XOPENEX 1.25 MG NEB SCH ×2 (05:05→11:00)
[2017-11-20] MEDS: SODIUM CHLORIDE 1,000 ML IV SCH (05:21)
[2017-11-20 05:26] VITALS: TEMP 97.4
[2017-11-20] MEDS: ZANTAC PO SCH (05:39)
[2017-11-20] MEDS: PRILOSEC PO SCH (05:40)
[2017-11-20] MEDS: SYNTHROID PO SCH ×2 (05:40→05:58)
[2017-11-20] MEDS: ROCEPHIN 1 GM in SODIUM CHLORIDE 50 ML IV SCH (08:35)
[2017-11-20] MEDS: SYMBICORT 80-4.5 MCG INHALER IH SCH (08:36)
[2017-11-20] MEDS: BACLOFEN PO SCH (08:37)
[2017-11-20] MEDS: EFFEXOR XR PO SCH (08:37)
[2017-11-20] MEDS: NEURONTIN PO SCH (08:37)
[2017-11-20] MEDS: ZOCOR PO SCH (08:37)
[2017-11-20] MEDS: ZITHROMAX PO SCH (08:37)
[2017-11-20] MEDS: MYRBETRIQ PO SCH (08:37)
[2017-11-20] MEDS: DITROPAN PO SCH (08:38)
[2017-11-20] MEDS: MICRO-K CAP PO SCH (08:38)
[2017-11-20] MEDS: PLETAL PO SCH (08:38)
[2017-11-20] MEDS: CALCIUM 500 + VIT D 200 MG TABLET PO SCH (08:38)
[2017-11-20] MEDS: ZESTORETIC 20-12.5 MG TAB PO SCH (08:38)
[2017-11-20] MEDS: ASPIRIN CHEWABLE PO SCH (08:38)
[2017-11-20] MEDS: NON-FORMULARY MEDICATION (Cyanocobalamin (Vitamin B-12) [Vitamin B12] 2,500 MCG) PO SCH (08:39)
[2017-11-20] MEDS ORDERED: K-DUR PO SCH (09:00)
--- NOTE | 2017-11-20 11:02 | CM.DICTOOL ---
ADMISSION: 11/18/17 14:07 DISCHARGE: 11/20/17 DATE OF SERVICE: 11/20/17 FINAL DIAGNOSIS BILATERAL PNEUMONITIS HYPOKALEMIA HYPERTENSION DYSLIPIDEMIA HYPOTHYROIDISM GERD MIGRAINE OSTEOARTHRITIS CHRONIC PAIN VARICOSE VEINS ANXIETY CHOLECYSTECTOMY CATARACT SURGERY LEFT EYE, 08/18/15 TUBAL LIGATION RIGHT SHOULDER REPLACEMENT LEFT ANKLE PINNING CURRENT EVERYDAY SMOKER LAST PFT [facility], 06/28/16 MILD RESTRICTIVE DEFECT LAST VITALS Temp Pulse Resp BP Pulse Ox 97.4 F L 74 18 135/70 96 11/20/17 05:25 11/20/17 05:25 11/20/17 05:25 11/20/17 05:25 11/20/17 05:25 TAKE THESE MEDICATIONS AT HOME Albuterol 0.083% one neb three times daily Aspirin (Aspirin Chewable) 81 mg PO DAILYWM [facility] Last Admin: 11/20/17 08:38 Dose: 81 mg Baclofen (Baclofen) 10 mg PO DAILY [facility] Last Admin: 11/20/17 08:37 Dose: 10 mg Budesonide/Formoterol Fumarate (Symbicort 80-4.5 Mcg Inhaler) 2 puff IH BID [facility] Last Admin: 11/20/17 08:36 Dose: 2 puff Calcium/Vitamin D (Calcium 500 + Vit D 200 Mg Tablet) 1 each PO DAILY [facility] Last Admin: 11/20/17 08:38 Dose: 1 each Cefalexin (Keflex) 500 mg PO TID for 7 days Cilostazol (Pletal) 100 mg PO BID [facility] Last Admin: 11/20/17 08:38 Dose: 100 mg Gabapentin (Neurontin) 600 mg PO TID [facility] Last Admin: 11/20/17 08:37 Dose: 600 mg Lisinopril/HCTZ (Zestoretic 20-12.5 Mg Tab) 1 tab PO DAILY [facility] Last Admin: 11/20/17 08:38 Dose: 1 tab Levothyroxine Sodium (Synthroid) 125 mcg PO QDAC [facility] Last Admin: 11/20/17 05:58 Dose: 125 mcg Mirabegron (Myrbetriq) 50 mg PO DAILY [facility] Last Admin: 11/20/17 08:37 Dose: 50 mg Cyanocobalamin (Vitamin B-12) [Vitamin B12] 2,500 mcg PO QAM [facility] Last Admin: 11/20/17 08:39 Dose: Not Given Omeprazole (Prilosec) 20 mg PO BIDAC [facility] Last Admin: 11/20/17 05:40 Dose: 20 mg Oxybutynin Chloride (Ditropan) 5 mg PO TID [facility] Last Admin: 11/20/17 08:38 Dose: 5 mg Potassium Chloride (Micro-K Cap) 10 meq PO DAILY [facility] Last Admin: 11/20/17 08:38 Dose: Not Given Prednisone 10 mg PO BID for 5 days with food Ranitidine HCl (Zantac) 150 mg PO BIDAC [facility] Last Admin: 11/20/17 05:39 Dose: 150 mg Simvastatin (Zocor) 20 mg PO DAILY [facility] Last Admin: 11/20/17 08:37 Dose: 20 mg Venlafaxine HCl (Effexor Xr) 150 mg PO DAILY [facility] Last Admin: 11/20/17 08:37 Dose: 150 mg ALLERGIES strawberry Allergy (Unknown, Verified 11/18/17 10:31) morphine Adverse Reaction (Intermediate, Verified 11/18/17 10:31) Chest Tightness tomatoes Allergy (Unknown, Uncoded 05/30/16 15:01) NEW PRESCRIPTIONS: Albuterol Sulfate 0.083% Neb [Albuterol 0.083% Neb] 1 vial NEB TID #90 vial.neb 11/20/17 Cephalexin [Keflex] 500 mg PO TID #21 capsule 11/20/17 Prednisone 10 mg PO BIDWM #5 tablet 11/20/17 SMOKING: CURRENT EVERYDAY SMOKER THE PATIENT RECEIVED EDUCATION/INSTRUCTION ENCOURAGING COMPLETE SMOKING CESSATION. SHE UNDERSTANDS THE POSSIBLE ADDED RISKS TO HER CARDIOPULMONARY HEALTH CONTINUATION MAY CAUSE. SHE HAS NOT VERBALIZED HER INTENT TO STOP SMOKING OR EVEN TO CUT DOWN THE AMOUNT SHE SMOKES. WE WILL CONTINUE TO PROVIDED REINFORCEMENT AND ENCOURAGEMENT IN THE OUTPATIENT SETTING FOR COMPLETE CESSATION. DISEASE SPECIFIC EDUCATION: PNEUMONITIS HYPOKALEMIA HOME MEDICATIONS NEW PRESCRIPTIONS POSSIBLE ADVERSE EFFECTS WITH DISABILITY REPRESENTATIVE USE OF STEROIDS SMOKING CESSATION FOLLOW UP LAB REVIEW: 11/20/17 04:30 11/20/17 04:30 11/20/17 04:30: Sodium 139.2, Potassium 3.14 L, Chloride 105.1, Carbon Dioxide 23.5, Anion Gap 13.74, BUN 17.8 H, Creatinine 0.72, Estimated GFR (MDRD) 81.00, BUN/Creatinine Ratio 24.72, Glucose 224.7 H, Calcium 8.82, Total Bilirubin 0.24 , AST 33.9, ALT 21.6, Alkaline Phosphatase 85.1, Total Protein 7.33, Albumin 3.58, Globulin 3.75, Albumin/Globulin Ratio 0.95 11/20/17 04:30: WBC 21.18 H D, RBC 3.49 L, Hgb 10.5 L, Hct 31.0 L, MCV 88.8, MCH 30.1, MCHC 33.9, RDW Coeff of Oly 13.9, Plt Count 240, Immature Gran % (Auto ) 0.6, Neut % (Auto) 92.1, Lymph % (Auto) 4.6 L, White % (Auto) 2.7, Eos % (Auto ) 0.0, Baso % (Auto) 0.0, Immature Gran # (Auto) 0.1, Neut # (Auto) 19.5 H, Lymph # (Auto) 1.0, White # (Auto) 0.6, Eos # (Auto) 0.0, Baso # (Auto) 0.0 PLAN: DISCHARGE HOME TODAY, 11/20/[address] SULLIVAN IN HIS OFFICE ON 11/27/17 AT 10:30 A.M. RESUME YOUR HOME MEDICATIONS PER LIST PROVIDED BY THE NURSING STAFF NEW PRESCRIPTIONS ALBUTEROL NEBS 0.083%, ONE NEB TREATMENT THREE TIMES DAILY PREDNISONE 10 MG, TAKE ONE TABLET BY MOUTH TWICE DAILY WITH FOOD FOR 5 DAYS KEFLEX 500 MG, TAKE ONE TABLET BY MOUTH THREE TIMES DAILY FOR 7 DAYS ACTIVITY TOLERATED DIET HEALTHY HEART SUMMARY THE PATIENT IS ALERT AND ORIENTED X3. SHE CURRENTLY RESIDES AT HOME WITH HER SPOUSE AND HAS BEEN INDEPENDENT WITH ADL'S. SHE DOES NOT REQUIRE HOME HEALTH OR HOMEMAKING SERVICES. SHE HAS A NEBULIZER FOR BREATHING TREATMENTS SHE WILL BE REQUIRED TO TAKE AFTER THIS DISCHARGE. SHE DESIRES TO RETURN HOME. THE SKIN TURGOR IS INTACT AND WITHOUT DECUBITUS ULCERS. HYDRATION AND NUTRITIONAL STATUS ARE GOOD. THE PATIENT TELLS US SHE NO LONGER HAS ANY SHORTNESS OF BREATH OR COUGHING. SHE IS AWARE AND AGREEABLE FOR DISCHARGE HOME TODAY. CURRENT CODE STATUS FULL CODE Jenny SINGLETON APRN MAXINE SULLIVAN M.D.
[2017-11-20 11:23] VITALS: BP 100/60
--- NOTE | 2017-11-20 11:30 | HP ---
DATE OF SERVICE: 11/19/17 HISTORY OF PRESENT ILLNESS: 67-year-old white female who presented through the emergency room by ambulance complaining of fever, nausea, vomiting and coughing. Her symptoms started yesterday. She woke up this morning with a fever of 102. PAST MEDICAL HISTORY: Hypertension PAC's COPD Generalized osteoarthritis Systolic murmur Echo 05/12/17 with ejection fraction 57%, valves were normal. Increased LA cavity size. PAST SURGICAL HISTORY: Tubal ligation Cholecystectomy Right shoulder surgery Cataract surgery Left ankle surgery REVIEW OF SYSTEMS: CONSTITUTIONAL: Fever, fatigue, malaise. No night sweats. No lethargy. No chills. HEENT: Eyes: No visual changes. No eye pain. No eye discharge. ENT: No runny nose. No epistaxis. No sinus pain. No sore throat. No odynophagia. No ear pain. No congestion. RESPIRATORY: Cough. No congestion. No hemoptysis. No shortness of breath. CARDIOVASCULAR: No angina symptoms. No CHF symptoms. No atypical chest pain for CAD. No palpitations. No PND. No orthopnea. GASTROINTESTINAL: No abdominal pain. No nausea or vomiting. No diarrhea or constipation. No hematemesis. No hematochezia. GENITOURINARY: No urgency. No frequency. No dysuria. No hematuria. No obstructive symptoms. No discharge. No pain. No significant abnormal bleeding. MUSCULOSKELETAL: No musculoskeletal pain. No joint swelling. No arthritis. NEUROLOGICAL: No headache. No neck pain. No syncope. No seizures. No dizziness. PSYCHIATRIC: Not anxious. No depression. No suicidal thoughts. No homicidal thoughts. SKIN: No rash. No lesions. No wounds. ENDOCRINE: No unexplained weight loss. No weight gain. HEMATOLOGIC/LYMPHATIC: No anemia. No purpura. No petechiae. No prolonged or excessive bleeding. No palpable lymph nodes. PERSONAL/FAMILY/SOCIAL HISTORY: The patient is a current every day light tobacco smoker. She states three to four cigarettes a day. No alcohol or ilicit drug use. MEDICATIONS: Ranitidine 150 mg p.o. b.i.d. Potassium Chloride 10 mEq p.o. daily Levothyroxine 125 mcg p.o. daily Effexor 150 mg p.o. daily Ibuprofen 800 mg p.o. p.r.n. Cyanocobalamin 2,500 mcg p.o. q.a.m. Budesonide/Formoterol (Symbicort) 2 puff IH b.i.d. Gabapentin 600 mg p.o. t.i.d. Lisinopril - HCTZ 20-12.5 mg one tab p.o. daily Oxycodone-Acetaminophen 7.5-325 (Percocet 7.5-325) one tab p.o. once Oxybutynin 5 mg p.o. t.i.d. Epinephrine 0.35 mg IM p.r.n. Myrbetriq 50 mg p.o. daily Tessalon Perle 100 mg p.o.t.i.d. p.r.n. Celebrex 200 mg p.o. daily Albuterol one vial neb p.r.n. Calcium/Vitamin D3 one each p.o. daily Baclofen 10 mg p.o. daily Aspirin 81 mg p.o. daily with meal Simvastatin 20 mg p.o. daily Prilosec 20 mg p.o. b.i.d a.c. Cilostazol 100 mg p.o. b.i.d. Buspirone 10 mg p.o. b.i.d. ALLERGIES: STRAWBERRY, MORPHINE (TOMATOES) PHYSICAL EXAMINATION: VITAL SIGNS: Temperature 102.3, heart rate 95, respiratory rate 24, BP 165/72, pulse ox 94%. HEENT: Head normocephalic, atraumatic. Eyes: Extraocular muscles are intact. Pupils are equal, round and reactive to light and accommodation. Ears: No lesions. Nose appeared normal. Throat: No exudate or erythema. NECK: Supple. No JVD, no carotid bruit. No lymphadenopathy or thyromegaly. LUNGS: Diminished breath sounds bilaterally with bilateral inspiratory and expiratory wheezing and rhonchi. Percussion note normal. Chest symmetrical. HEART: S1, S2, no S3. Grade I/ systolic murmur. No cyanosis or clubbing. No ascites. Pulses: Dorsalis pedis and posterior tibial pulses +1 to +2 bilaterally. ABDOMEN: Soft. Nontender. Bowel sounds active. No CVA tenderness. No mass felt. EXTREMITIES: No edema. Full range of motion of all extremities, equal. NEUROLOGIC: No focal deficit. Cranial nerves II through XII are grossly intact. No headache, no double vision or headache. SKIN: Not dry. Intact. Turgor - normal. LYMPHATIC: No palpable lymph nodes/no lymphedema. MUSCULOSKELETAL: Normal joints with no swelling. Muscle tone is normal. CT of the chest shows mild bilateral pneumonitis, mitral valve calcifications. White count 15.22, hemoglobin 12, hematocrit 35.3, platelets 261. Sodium 135, potassium 4. Carbon dioxide 27, BUN 15.6, creatinine 0.87. BUN 15. Lactic acid 0.97, calcium 9.6, AST 22, ALT 15, total CK 52, troponin negative. ABGs on room air 02 sat 97, pH 7.518, pc02 30, p02 76, bicarb 24.5. Procalcitonin less than 0.05. ASSESSMENT: 1. ACUTE BILATERAL PNEUMONITIS 2. COPD 3. SMOKER 4. HYPERTENSION 5. HISTORY OF PAC'S 6. SYSTOLIC MURMUR 7. GENERALIZED OSTEOARTHRITIS PLAN: 1. We will admit, routine telemetry orders. 2. CBC, CMP daily. 3. Tylenol 500 mg p.o. q.4 p.r.n. for fever. 4. IV NS at 75 cc/hr. 5. Continue all home medications. 6. Start Xopenex neb treatments q.6hr JAG. 7. Rocephin 1 gm IV daily. 8. Zithromax 500 mg p.o. daily times three days. 9. Solu-Cortef 100 mg IV q.8hr. 10. Regular low sodium diet. 11. Oxygen at 1 to 2L nasal cannula as needed. 12. Continue all home medications. 13. We will follow her closely. 14. Zofran 4 mg IV q.6hr p.r.n. for nausea. TIME SPENT: More than 70 minutes. MTDD
--- NOTE | 2017-11-20 11:46 | PN ---
DATE OF SERVICE: 11/19/17 SUBJECTIVE: Iman Martinez was seen and examined with the Nurse Practitioner. The patient has bilateral pneumonitis. The patient's condition has improved. She is feeling a lot better. PHYSICAL EXAMINATION: VITAL SIGNS: Temperature 98.6, pulse 80, respiratory rate 20, blood pressure 102/62, pulse ox 92%. HEENT: Head normocephalic, atraumatic. Eyes: Extraocular muscles are intact. Pupils are equal, round and reactive to light and accommodation. Ears: No lesions. Nose appeared normal. Throat: No exudate or erythema. NECK: Supple. No JVD, no carotid bruit. No lymphadenopathy or thyromegaly. LUNGS: Decreased breath sounds. Percussion note normal. Chest symmetrical. HEART: S1, S2, no S3. No murmurs. No cyanosis or clubbing. No ascites. Pulses: Dorsalis pedis and posterior tibial pulses +1 to +2 both sides. ABDOMEN: Soft. Nontender. Bowel sounds active. No CVA tenderness. No mass felt. EXTREMITIES: No pedal edema. Full range of motion of all extremities, equal. NEUROLOGIC: No focal deficit. Cranial nerves II through XII are grossly intact. No headache, no double vision or headache. SKIN: Not dry. Intact. Turgor - normal. LYMPHATIC: No palpable lymph nodes/no lymphedema. MUSCULOSKELETAL: Normal joints with no swelling. Muscle tone is normal. LABS: Hemoglobin 11.3, hematocrit 33, WBC 15,000 with normal differential. Creatinine 0.9, BUN 18, potassium 3.6. ASSESSMENT: 1. BILATERAL PNEUMONITIS, IMPROVING 2. HYPOTHYROIDISM 3. CHRONIC LUNG DISEASE 4. DYSLIPIDEMIA 5. REFLUX DISEASE PLAN: 1. Continue Rocephin and Zithromax. 2. Continue Steroids. CONDITION: Stable. TIME SPENT: More than 30 minutes. Plan and coordination of the patient's care discussed in the presence of nurse. CYRIL
--- NOTE | 2017-11-20 13:43 | PCM.PROG ---
Attending Provider: ATTENDING PROVIDER: Dr. MAXINE SULLIVAN This patient is seen with Gabriela García, Nurse Practitioner. DATE OF SERVICE: 11/20/17 SUBJECTIVE: This 67 year old WHITE/ F was hospitalized 11/18/17. The patient is lying in bed, alert, resting comfortably. She is eating well. Kidney function has improved. She has not experienced cough. No fever times 36 hours. REVIEW OF SYSTEMS: CONSTITUTIONAL: Weakness. No night sweats. No malaise, lethargy. No fever or chills. HEENT: Eyes: No visual changes. No eye pain. No eye discharge. ENT: No runny nose. No epistaxis. No sinus pain. No odynophagia. No congestion. RESPIRATORY: Cough. No congestion. No hemoptysis. No shortness of breath. CARDIOVASCULAR: No angina symptoms. No CHF symptoms. No atypical chest pain for CAD. No palpitations. No orthopnea.. GASTROINTESTINAL: No abdominal pain. No nausea or vomiting. No diarrhea or constipation. No hematemesis. No hematochezia. GENITOURINARY: No urgency. No frequency. No dysuria. No hematuria. No obstructive symptoms. No discharge. No pain. No significant abnormal bleeding. MUSCULOSKELETAL: No musculoskeletal pain; no joint swelling. NEUROLOGICAL: Awake, alert, oriented to time, place and person. No headache. No neck pain. No syncope. No seizures. No dizziness. PSYCHIATRIC: Not anxious. No depression. No suicidal thoughts. No homicidal thoughts. SKIN: No rash. No lesions. No wounds. ENDOCRINE: No unexplained weight loss. No weight gain. HEMATOLOGIC/LYMPHATIC: No anemia. No purpura. No petechiae. No prolonged or excessive bleeding. No palpable lymph nodes. PHYSICAL EXAMINATION: GENERAL: The patient is awake, alert and oriented, lying in bed in no distress. VITAL SIGNS: Temperature 97.4 F, Pulse 74, Respiratory Rate 18, BP 135/70, Pulse Ox 96% HEENT: Head normocephalic, atraumatic. Eyes: Extraocular muscles are intact. Pupils are equal, round and reactive to light and accommodation. Ears: No lesions. Nose appeared normal. Throat: No exudate or erythema. NECK: Supple. No JVD, no carotid bruit. No lymphadenopathy or thyromegaly. LUNGS: Diminished breath sounds bilaterally. Clear to auscultation. Percussion note normal. Chest symmetrical. HEART: S1, S2, no S3. No murmurs. No cyanosis or clubbing. No ascites. Pulses: Dorsalis pedis and posterior tibial pulses +1 to +2 both sides. ABDOMEN: Soft. Non-tender. Bowel sounds active. No CVA tenderness. No mass felt. EXTREMITIES: No edema. Full range of motion of all extremities, equal. NEUROLOGIC: No focal deficit. Cranial nerves II through XII are grossly intact. No headache, no double vision or headache. SKIN: Not dry. Intact. Turgor-normal. LYMPHATIC: No palpable lymph nodes/no lymphedema. MUSCULOSKELETAL: Normal joints with no swelling. Muscle tone is normal. LAB REVIEW: 11/20/17 04:30 11/20/17 04:30 11/20/17 04:30: Sodium 139.2, Potassium 3.14 L, Chloride 105.1, Carbon Dioxide 23.5, Anion Gap 13.74, BUN 17.8 H, Creatinine 0.72, Estimated GFR (MDRD) 81.00, BUN/Creatinine Ratio 24.72, Glucose 224.7 H, Calcium 8.82, Total Bilirubin 0.24 , AST 33.9, ALT 21.6, Alkaline Phosphatase 85.1, Total Protein 7.33, Albumin 3.58, Globulin 3.75, Albumin/Globulin Ratio 0.95 11/20/17 04:30: WBC 21.18 H D, RBC 3.49 L, Hgb 10.5 L, Hct 31.0 L, MCV 88.8, MCH 30.1, MCHC 33.9, RDW Coeff of Oly 13.9, Plt Count 240, Immature Gran % (Auto ) 0.6, Neut % (Auto) 92.1, Lymph % (Auto) 4.6 L, [place] % (Auto) 2.7, Eos % (Auto ) 0.0, Baso % (Auto) 0.0, Immature Gran # (Auto) 0.1, Neut # (Auto) 19.5 H, Lymph # (Auto) 1.0, [place] # (Auto) 0.6, Eos # (Auto) 0.0, Baso # (Auto) 0.0 ASSESSMENT: 1. Acute bilateral pneumonitis improving 2. Hypokalemia PLAN: 1. Up and about 2. Keflex 500 mg t.i.d for 7 days 3. Prednsione 10 mg b.i.d. for 5 days 4. Prescription for Albuterol 0.83 t.i.d. - has nebulizer at home 5. K-Tab 40 mEq b.i.d. 6. D/C IV fluids Plan and coordination of the patient's care discussed in the presence of Mixing Technician and nurse. CONDITION: Stable SCRIBED BY: IHSAN OSEGUERA Glucose And Syrup Weigher scribed while in presence of service performed by Dr. Sullivan/Gabriela García APRN on 11/20/17 ([id number])
--- NOTE | 2017-11-21 12:43 | DS ---
DATE OF SERVICE: 11/20/17 FINAL DIAGNOSIS: 1. BILATERAL PNEUMONITIS 2. HYPOKALEMIA 3. HYPERTENSION 4. DYSLIPIDEMIA 5. HYPOTHYROIDISM 6. GERD 7. MIGRAINE 8. OSTEOARTHRITIS 9. CHRONIC PAIN 10. VARICOSE VEINS 11. ANXIETY 12. CHOLECYSTECTOMY 13. CATARACT SURGERY LEFT EYE, 08/18/15 14. TUBAL LIGATION 15. RIGHT SHOULDER REPLACEMENT 16. LEFT ANKLE PINNING 17. CURRENT EVERYDAY SMOKER DISCHARGE INSTRUCTIONS: Followup appointment: Return to see Dr. Tomlin in his office on 11/27/17 at 10: 30 a.m. MEDICATIONS AT DISCHARGE: Albuterol 0.83% one neb three times daily with meal [facility] Baclofen 10 mg p.o. daily [facility] Budesonide/Formoterol (Symbicort 80-4.5 mcg) two puff IH b.i.d. [facility] Calcium/Vitamin D one each p.o. daily [facility] Cefalexin 500 mg p.o. t.i.d. for 7 days Pletal 100 mg p.o. b.i.d. JAG Neurontin 600 mg p.o. t.i.d. JAG Lisinopril/HCTZ one tab p.o. daily [facility] Levothyroxine (Synthroid) 125 mcg p.o. q.d a.c. JAG Myrbetriq 50 mg p.o. daily [facility] Cyanocobalamin 2,500 mcg p.o. q.a.m. JAG Prilosec 20 mg p.o. b.i.d. a.c. JAG Ditropan 5 mg p.o. t.i.d. [facility] Micro-K cap 10 mEq p.o. daily [facility] Prednisone 10 mg p.o. b.i.d. for 5 days with food Ranitidine (Zantac) 150 mg p.o. b.i.d. a.c. JAG Simvastatin (Zocor) 20 mg p.o. daily [facility] Venlafaxine (Effexor Xr) 150 mg p.o. daily [facility] NEW PRESCRIPTIONS: Albuterol nebs 0.083%, one neb treatment three times daily Prednisone 10 mg, take one tablet by mouth twice daily with food for 5 days Cephalexin (Keflex) 500 mg take one tablet by mouth three times daily for 7 days DIET INSTRUCTIONS: Heart Healthy ACTIVITY: As tolerated SMOKING: Current every day smoker. The patient received education/instruction encouraging complete smoking cessation. She understands the possible added risks to her cardiopulmonary health continuation may cause. She has not verbalized her intent to stop smoking or even to cut down the amount she smokes. We will continue to provided reinforcement and encouragement in the outpatient setting for complete cessation. 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 She presented to the emergency room with cough, fever, and shortness of breath. CT of the chest showed bilateral pneumonitis. She also had low potassium with a fever initially of 101. She was admitted, placed on Rocephin 1 gm IV daily along with Zithromax 500 mg p.o. daily times three days, started on NS at 75 cc/hr IV. She has not had any fever for the past 24 hours. Today her potassium was low likely due to dilution. She is to get 40 mEq of potassium twice today and she is on 10 mEq of potassium at home daily. She was initially on oxygen at 1 to 2L for the first 24 hours however for the past 24 hours she has been off up and about walking in the room, eating 50 to 100% of her meals. Her telemetry has been normal sinus rhythm. Again, no fever for 24 hours. Vital signs stable. Blood pressure 135/70, pulse ox 96% on room air. She did have a PT eval due to some shoulder pain following surgery. She has a nebulizer machine at home for which she will continue to use Albuterol neb treatments t.i.d. A new prescription for Albuterol was given to her. She will go home on Keflex 500 mg t.i.d. for the next 7 days along with Prednisone 10 mg b.i.d. for the next 5 days. She is to continue to use her nebulizer machine. Again she is supposed to continue her potassium that she has at home. We will follow up with her in the office next week. TIME SPENT: More than 60 minutes. CYRIL
--- NOTE | 2017-11-23 12:34 | PN ---
DATE OF SERVICE: 11/20/17 SUBJECTIVE: The patient's condition has improved. She is up and about, no coughing. Mild hypokalemia noted. The patient has already been given extra supplements of potassium. Condition stable. TIME SPENT: More than 30 minutes. Plan and coordination of the patient's care discussed in the presence of nurse. CYRIL
--- NOTE | 2017-11-23 12:36 | PN ---
CODING FOR BILLIN11/18/17 LEVEL 5 11/19/17 INTERMEDIATE 11/20/17 DISCHARGE MTDD
== END 2017-11-20 13:48 | disposition home or self-care (01) | DRG 391 ==
LOC: ED 10:21 → MEDSURG B 14:07 → OBSVTOIN 14:07
PROVIDERS: ADMIT Internal Medicine; ATTEND Internal Medicine
DX: R11.2 Nausea with vomiting, unspecified (principal); J18.9 Pneumonia, unspecified organism; J44.9 Chronic obstructive pulmonary disease, unspecified; R05 Cough; R06.02 Shortness of breath; R53.1 Weakness; I10 Essential (primary) hypertension; I83.90 Asymptomatic varicose veins of unspecified lower extremity; E87.6 Hypokalemia; E78.5 Hyperlipidemia, unspecified; E03.9 Hypothyroidism, unspecified; G43.909 Migraine, unspecified, not intractable, without status migrainosus; G89.29 Other chronic pain; M19.90 Unspecified osteoarthritis, unspecified site; K21.9 Gastro-esophageal reflux disease without esophagitis; F41.9 Anxiety disorder, unspecified; F17.210 Nicotine dependence, cigarettes, uncomplicated
CPT/HCPCS: 36415; 80053; 81001; 82550; 82553; 82803; 82962; 83605; 84145; 84484; 85025; 93005; 93010; 94640; 96361; 96365; 99284

== ENCOUNTER 2018-03-30 09:41 | Outpatient (CLI) ==
[2012-08-26 22:58] VITALS: TEMP 97.5
== END 2018-03-30 09:42 | disposition home or self-care (01) ==
LOC: LAB 09:41
PROVIDERS: ATTEND Internal Medicine Infectious Disease
DX: T84.59XD Infection and inflammatory reaction due to other internal joint prosthesis, subsequent encounter (principal); B95.62 Methicillin resistant Staphylococcus aureus infection as the cause of diseases classified elsewhere; M19.011 Primary osteoarthritis, right shoulder; Z96.611 Presence of right artificial shoulder joint; Z68.37 Body mass index [BMI] 37.0-37.9, adult; R70.0 Elevated erythrocyte sedimentation rate
CPT/HCPCS: 36415; 85651; 86140

== ENCOUNTER 2018-04-06 12:35 | Outpatient (CLI) | payer OTHER ==
[2012-08-26 22:58] VITALS: TEMP 97.5
== END 2018-04-06 12:36 | disposition home or self-care (01) ==
LOC: LAB 12:35
PROVIDERS: ATTEND Internal Medicine Infectious Disease
DX: T84.59XD Infection and inflammatory reaction due to other internal joint prosthesis, subsequent encounter (principal); B95.62 Methicillin resistant Staphylococcus aureus infection as the cause of diseases classified elsewhere; M19.011 Primary osteoarthritis, right shoulder; R70.0 Elevated erythrocyte sedimentation rate; Z96.611 Presence of right artificial shoulder joint; Z68.37 Body mass index [BMI] 37.0-37.9, adult
CPT/HCPCS: 36415; 85651; 86140

== ENCOUNTER 2018-07-16 15:52 | Outpatient (CLI) ==
[2012-08-26 22:58] VITALS: TEMP 97.5
== END 2018-07-16 15:53 | disposition home or self-care (01) ==
LOC: NONPT 15:52
DX: Z47.31 Aftercare following explantation of shoulder joint prosthesis (principal); Z89.231 Acquired absence of right shoulder; B95.8 Unspecified staphylococcus as the cause of diseases classified elsewhere; M86.9 Osteomyelitis, unspecified
CPT/HCPCS: 80053; 85025

== ENCOUNTER 2018-07-20 17:00 | Outpatient (CLI) ==
[2012-08-26 22:58] VITALS: TEMP 97.5
== END 2018-07-20 17:01 | disposition home or self-care (01) ==
LOC: NONPT 17:00
DX: Z47.31 Aftercare following explantation of shoulder joint prosthesis (principal); M86.9 Osteomyelitis, unspecified; B95.8 Unspecified staphylococcus as the cause of diseases classified elsewhere
CPT/HCPCS: 80053; 85025

== ENCOUNTER 2018-07-29 15:29 | Outpatient (CLI) ==
[2012-08-26 22:58] VITALS: TEMP 97.5
== END 2018-07-29 15:30 | disposition home or self-care (01) ==
LOC: NONPT 15:29
DX: T84.59XA Infection and inflammatory reaction due to other internal joint prosthesis, initial encounter (principal); B95.8 Unspecified staphylococcus as the cause of diseases classified elsewhere; Z79.2 Long term (current) use of antibiotics
CPT/HCPCS: 80053; 85025; 85651; 86140

== ENCOUNTER 2018-08-17 18:17 | Outpatient (CLI) ==
[2012-08-26 22:58] VITALS: TEMP 97.5
== END 2018-08-17 18:18 | disposition home or self-care (01) ==
LOC: LAB 18:17
PROVIDERS: ATTEND Family Medicine
DX: T84.59XA Infection and inflammatory reaction due to other internal joint prosthesis, initial encounter (principal); B95.8 Unspecified staphylococcus as the cause of diseases classified elsewhere; I10 Essential (primary) hypertension
CPT/HCPCS: 36415; 80053; 85025; 85651; 86140

== ENCOUNTER 2018-08-19 14:57 | Outpatient (CLI) ==
[2012-08-26 22:58] VITALS: TEMP 97.5
== END 2018-08-19 14:58 | disposition home or self-care (01) ==
LOC: NONPT 14:57
DX: M19.011 Primary osteoarthritis, right shoulder (principal); M00.811 Arthritis due to other bacteria, right shoulder; M86.9 Osteomyelitis, unspecified; Z19.2 Hormone resistant malignancy status
CPT/HCPCS: 81001

== ENCOUNTER 2018-08-24 14:14 | Outpatient (CLI) ==
[2012-08-26 22:58] VITALS: TEMP 97.5
== END 2018-08-24 14:15 | disposition home or self-care (01) ==
LOC: NONPT 14:14
PROVIDERS: ATTEND Internal Medicine Infectious Disease
DX: T84.59XA Infection and inflammatory reaction due to other internal joint prosthesis, initial encounter (principal); B95.8 Unspecified staphylococcus as the cause of diseases classified elsewhere; Z79.2 Long term (current) use of antibiotics
CPT/HCPCS: 80053; 85025

== ENCOUNTER 2018-08-25 13:11 | Outpatient (CLI) ==
[2012-08-26 22:58] VITALS: TEMP 97.5
== END 2018-08-25 13:12 | disposition home or self-care (01) ==
LOC: LAB 13:11
PROVIDERS: ATTEND Internal Medicine Cardiovascular Disease
DX: E03.9 Hypothyroidism, unspecified (principal); Z79.899 Other long term (current) drug therapy
CPT/HCPCS: 36415; 84443

== ENCOUNTER 2018-10-20 13:23 | Outpatient (CLI) ==
[2012-08-26 22:58] VITALS: TEMP 97.5
== END 2018-10-20 13:24 | disposition home or self-care (01) ==
LOC: NONPT 13:23 → LAB 13:24
PROVIDERS: ATTEND Family Medicine
DX: D64.9 Anemia, unspecified (principal); T84.59XA Infection and inflammatory reaction due to other internal joint prosthesis, initial encounter; B96.5 Pseudomonas (aeruginosa) (mallei) (pseudomallei) as the cause of diseases classified elsewhere; B95.8 Unspecified staphylococcus as the cause of diseases classified elsewhere; Z79.2 Long term (current) use of antibiotics
CPT/HCPCS: 36415; 80053; 85014; 85018; 85025

== ENCOUNTER 2018-10-26 23:05 | Emergency (ER) | payer OTHER ==
[2018-10-26 23:26] VITALS: BP 146/70; TEMP 97.1; BMI 36.7
--- NOTE | 2018-10-27 | ED.PDOC ---
General ED Provider: Dr. MINAL MARIE Chief Complaint: Extremity Swelling/Pain Stated Complaint: Has been getting surgery of right soulder at [facility] for weeks. Last surgery was 4 weeks ago and followed up today at [facility]. The surgeon saw the right upper extremity and swelling and did an US and told them that He would not send her home if there was a blood clot. she states it is swollen and bruised. She has a PICC line and is getting infusion through and external pump of Antibiotics -Cepfepime. Time Seen by Physician: 23:40 Mode of Arrival: Walk-In Information Source: Patient Primary Care Provider: BENY DIAZ Nursing and Triage Documentation Reviewed and Agree: Yes Does patient meet sepsis criteria?: No System Inflammatory Response Syndrome: Not Applicable Sepsis Protocol: For patient's 13 years and over: Temp is 96.8 and below OR 101 and greater Pulse >90 BPM Resp >20/minute Acutely Altered Mental Status Are patient's symptoms suggestive of a new infection, such as: -Pneumonia -Skin, Soft Tissue -Endocarditis -UTI -Bone, Joint Infection -Implantable Device -Acute Abdominal Infection -Wound Infection -Meningitis -Blood Stream Catheter Infection -Unknown Review of Systems - Review Of Systems Constitutional: Reports: No symptoms Eyes: Reports: No symptoms Ears, Nose, Mouth, Throat: Reports: No symptoms Respiratory: Reports: No symptoms Cardiac: Reports: No symptoms GI: Reports: No symptoms : Reports: No symptoms Musculoskeletal: Reports: Muscle pain, Other (arm swelling ) Skin: Reports: Bruising Neurological: Reports: Anxiety Endocrine: Reports: No symptoms Hematologic/Lymphatic: Reports: No symptoms All Other Systems: Reviewed and Negative Past Medical History - Past Medical History Previously Healthy: No Endocrine: Reports: Hypothyroid Cardiovascular: Reports: None Respiratory: Reports: None Hematological: Reports: None Gastrointestinal: Reports: GERD Genitourinary: Reports: None Neuro/Psych: Reports: Migraine Musculoskeletal: Reports: Arthritis Cancer: Reports: None Last Menstrual Period: menopausal - Surgical History General Surgical History: Reports: Tubal ligation (TUBAL LIGATION 1976), Cholecystectomy (CHOLECYSTYECTOMY 1970), Other (intraoccular lens replacement on left eye.) - Family History Family History: Reports: Unknown - Social History Smoking Status: Former smoker, Light tobacco smoker Hx Substance Use: No Alcohol Screening: None - Immunizations Tetanus Shot up to Date: Yes Physical Exam - Physical Exam Appearance: Obese Respiratory: Airway patent, Breath sounds clear, Breath sounds equal, Respirations nonlabored Cardiovascular: RRR, Pulses normal, No rub, No murmur Musculoskeletal: Limited ROM (right shoulder), Edema Skin: Warm, Dry, Normal color Neurological: Sensation intact, Motor intact, Reflexes intact, Cranial nerves intact, Alert, Oriented Psychiatric: Anxious Critical Care Note - Critical Care Note Total Time (mins): 0 Course - Course Orders, Labs, Meds: Orders Category Date Time Status Ice [ED APPLY ICE AFFECTED AREA] .ONCE EMERGENCY 10/26/18 23:57 Active Furosemide [Lasix Tab] MEDS 10/27/18 00:19 Discontinued 40 mg .ROUTE .STK-MED ONE Furosemide [Lasix Tab] MEDS 10/27/18 00:04 Discontinued 40 mg PO ONCE STA Medications Discontinued Medications Generic Name Dose Route Start Last Admin Trade Name Freq PRN Reason Stop Dose Admin Furosemide 40 mg 10/27/18 00:04 10/27/18 00:22 Lasix Tab PO 10/27/18 00:05 Not Given ONCE STA Vital Signs: Temp Pulse Resp BP Pulse Ox 10/26/18 23:12 97.1 F L 60 20 146/70 H 95 Departure - Departure Time of Disposition: 00:40 Disposition: HOME SELF-CARE Discharge Problem: Edema of the upper extremity Instructions: Edema (ED) Condition: Fair Pt referred to PMD for follow-up: Yes IPMP verified?: No Additional Instructions: FOLLOW UP WITH YOUR DOCTORS AT [facility] IN THE MORNING CONTINUE HOME MEDICATIONS. Allergies/Adverse Reactions: Allergies strawberry Allergy (Unknown, Verified 11/18/17 10:31) morphine Adverse Reaction (Intermediate, Verified 11/18/17 10:31) Chest Tightness tomatoes Allergy (Unknown, Uncoded 05/30/16 15:01) Home Medications: Ambulatory Orders Ranitidine HCl 150 mg PO BID 08/26/12 Levothyroxine Sodium 125 mcg PO DAILY 06/08/15 Potassium Chloride 10 meq PO DAILY 06/08/15 Ibuprofen 800 mg PO PRN PRN 08/18/15 Venlafaxine HCl [Effexor Xr] 150 mg PO DAILY 08/18/15 Budesonide/Formoterol Fumarate [Symbicort 80-4.5 Mcg Inhaler] 2 puff IH BID Cyanocobalamin (Vitamin B-12) [Vitamin B12] 2,500 mcg PO QAM 08/24/15 Gabapentin 600 mg PO TID 08/24/15 Epinephrine [Epipen Twinpak] 0.3 mg IM PRN PRN #1 pen.injctr 12/30/15 Oxybutynin Chloride [Ditropan Xl] 5 mg PO TID 12/30/15 Oxycodone-Acetaminophe 7.5-325 [Percocet 7.5-325] 1 tab PO ONCE 12/30/15 Mirabegron [Myrbetriq] 50 mg PO DAILY 05/30/16 Baclofen 10 mg PO DAILY 10/28/17 Buspirone HCl 10 mg PO BID 10/28/17 Calcium Carbonate/Vitamin D3 [Calcium 600 + Vit D Tablet] 1 each PO DAILY Celecoxib [Celebrex] 200 mg PO DAILY 10/28/17 Cilostazol [Pletal] 100 mg PO BID 10/28/17 Omeprazole [Prilosec] 20 mg PO BIDAC #30 capsule. 10/28/17 Simvastatin [Zocor] 20 mg PO DAILY 10/28/17 Albuterol Sulfate 0.083% Neb [Albuterol 0.083% Neb] 1 vial NEB TID #90 vial.neb 11/20/17 Ampicillin Sodium 2 gm IV DIRECTED 10/27/18 Aspirin 650 mg PO DAILY 10/27/18 Cefepime HCl [Maxipime] 2 gm IV DIRECTED 10/27/18 Cilostazol 50 mg PO BID 10/27/18 Docusate Sodium [Dok] 100 mg PO DAILY PRN 10/27/18 Fluconazole [Diflucan] 400 mg PO DAILY 10/27/18 Furosemide [Lasix] 20 mg PO DAILY PRN 10/27/18 Hydrochlorothiazide 12.5 mg PO DAILY 10/27/18 Lisinopril 20 mg PO DAILY 10/27/18 Potassium Chloride [K-Dur] 20 meq PO BID 10/27/18 Simvastatin 5 mg PO BEDTIME 10/27/18 Disposition Discussed With: Patient, Family
[2018-10-27] MEDS ORDERED: LASIX TAB PO STA (00:04)
[2018-10-27] MEDS ORDERED: LASIX TAB ONE (00:19)
== END 2018-10-27 01:15 | disposition home or self-care (01) ==
LOC: ED 23:05
DX: R60.0 Localized edema (principal); M79.601 Pain in right arm; Z98.890 Other specified postprocedural states; F17.210 Nicotine dependence, cigarettes, uncomplicated
CPT/HCPCS: 99283

== ENCOUNTER 2018-11-03 13:58 | Outpatient (CLI) | payer OTHER ==
[2012-08-26 22:58] VITALS: TEMP 97.5
== END 2018-11-03 13:59 | disposition home or self-care (01) ==
LOC: NONPT 13:58
PROVIDERS: ATTEND Family Medicine
DX: T84.59XA Infection and inflammatory reaction due to other internal joint prosthesis, initial encounter (principal); B96.5 Pseudomonas (aeruginosa) (mallei) (pseudomallei) as the cause of diseases classified elsewhere; B95.8 Unspecified staphylococcus as the cause of diseases classified elsewhere
CPT/HCPCS: 80053; 84075; 84080; 85025; 85651; 86140

== ENCOUNTER 2018-11-26 14:45 | Inpatient (IN) ==
--- NOTE | 2018-11-26 15:48 | ED.PDOC ---
General ED Provider: Dr. PRABHAKAR SALINAS Chief Complaint: Weakness Stated Complaint: Weakness and abnormal Lab. referred to ER by pcp beny diaz her FP in [place]. States has chronic anemia due to multple surgeries on Rt Shoulder. Lab ordered yesterday and referred her today due to abnromal results Time Seen by Physician: 15:20 Mode of Arrival: Wheelchair Information Source: Patient Primary Care Provider: BENY DIAZ Nursing and Triage Documentation Reviewed and Agree: Yes Does patient meet sepsis criteria?: No System Inflammatory Response Syndrome: Not Applicable Sepsis Protocol: For patient's 13 years and over: Temp is 96.8 and below OR 101 and greater Pulse >90 BPM Resp >20/minute Acutely Altered Mental Status Are patient's symptoms suggestive of a new infection, such as: -Pneumonia -Skin, Soft Tissue -Endocarditis -UTI -Bone, Joint Infection -Implantable Device -Acute Abdominal Infection -Wound Infection -Meningitis -Blood Stream Catheter Infection -Unknown Neurological Complaint Exam - Weakness Complaint/Exam Last Known Well: 12 mo Onset: Gradual Symptoms Are: Still present Timing: Intermittent Episodes Lasting: Hours Initial Severity: Moderate Current Severity: Moderate Character: Reports: Lightheaded Aggravating: Reports: Exertion Alleviating: Reports: Rest Associated Signs and Symptoms: Denies: Nausea, Vomiting, Diaphoresis, Tinnitus, Chest pain, Short of air, Palpitations, Unsteady gait, GI blood loss, Visual changes, Decreased oral intake, Change in medication, Change in diet, OTC meds, Loss of balance Cardiac Risk Factors: Reports: Hypertension, Elevated lipids CVA Risk Factors: Reports: Hypertension Related Surgical History: Reports: None JVD Present: No Carotid Bruit Present: No Nystagmus Present: No Gag Reflex Present: Yes Meningeal Signs Positive: No Focal Weakness: Present: None, RUE Focal Sensory Loss: Present: None Gait: Unable [id number]: Normal Findings Differential Diagnoses: GI Bleed Review of Systems - Review Of Systems Constitutional: Reports: No symptoms Eyes: Reports: No symptoms Ears, Nose, Mouth, Throat: Reports: No symptoms Respiratory: Reports: No symptoms Cardiac: Reports: No symptoms GI: Reports: No symptoms : Reports: No symptoms Musculoskeletal: Reports: No symptoms Skin: Reports: No symptoms Neurological: Reports: No symptoms Endocrine: Reports: No symptoms Hematologic/Lymphatic: Reports: No symptoms All Other Systems: Reviewed and Negative Past Medical History - Past Medical History Previously Healthy: No Endocrine: Reports: Hypothyroid Cardiovascular: Reports: None Respiratory: Reports: None Hematological: Reports: None Gastrointestinal: Reports: GERD Genitourinary: Reports: None Neuro/Psych: Reports: Migraine Musculoskeletal: Reports: Arthritis Cancer: Reports: None Last Menstrual Period: none - Surgical History General Surgical History: Reports: Tubal ligation (TUBAL LIGATION 1976), Cholecystectomy (CHOLECYSTYECTOMY 1970), Other (intraoccular lens replacement on left eye.) - Family History Family History: Reports: Unknown - Social History Smoking Status: Former smoker, Light tobacco smoker Hx Substance Use: No Alcohol Screening: None Physical Exam - Physical Exam Appearance: Ill-appearing Ill-appearing: Mild Pain Distress: None Eyes: JAMMIE, EOMI, Conjunctiva clear ENT: Ears normal, Nose normal, Oropharynx normal Neck: Supple Respiratory: Airway patent, Breath sounds clear, Breath sounds equal, Respirations nonlabored Cardiovascular: RRR, Pulses normal, No rub, No murmur GI/: Soft, Nontender, No masses, Bowel sounds normal, No Organomegaly Musculoskeletal: Normal strength, No edema, No calf tenderness Skin: Warm, Dry, Normal color Neurological: Sensation intact, Motor intact, Reflexes intact, Cranial nerves intact, Alert, Oriented Psychiatric: Affect appropriate, Mood appropriate, Anxious Interpretation - [place] Operator Rate: Normal - EKG Interpretation Time of EKG #1: 16:35 Rate: Normal Rhythm: Sinus [place]: Left ST Segment: Normal Interpretation: [facility] Physician Notification - Case Discussed Physician Notified: Dr Tomlin- states not his patient -call hospitalist Time of Notification: 17:15 (type/screen) Physician Notified: Dr King Time of Notification: 18:35 (discussed-accepts for admission ) Critical Care Note - Critical Care Note Total Time (mins): 60 Course - Course Hematology/Chemistry: 11/26/18 16:17 11/26/18 16:17 Orders, Labs, Meds: Lab Review 11/26/18 11/26/18 11/26/18 16:17 16:17 16:45 WBC 5.59 RBC 2.80 L Hgb 6.8 L Hct 21.3 L MCV 76.1 L MCH 24.3 L MCHC 31.9 RDW Coeff of Oly 17.0 H Plt Count 245 Immature Gran % (Auto) 0.2 Neut % (Auto) 58.9 Lymph % (Auto) 22.7 [place] % (Auto) 13.8 H Eos % (Auto) 3.9 Baso % (Auto) 0.5 Immature Gran # (Auto) 0.0 Neut # (Auto) 3.3 Lymph # (Auto) 1.3 [place] # (Auto) 0.8 Eos # (Auto) 0.2 Baso # (Auto) 0.0 Puncture Site O2 Saturation ABG pH ABG pCO2 ABG pO2 ABG HCO3 ABG Total CO2 ABG Base Excess Dao Test FiO2 % Sodium 126.9 L Potassium 4.54 Chloride 96.9 L Carbon Dioxide 21.5 L Anion Gap 13.04 BUN 19.0 H Creatinine 1.09 Estimated GFR (MDRD) 50.00 BUN/Creatinine Ratio 17.43 Glucose 95.8 Calcium 9.43 Total Bilirubin 0.35 AST 31.9 ALT 17.5 Alkaline Phosphatase 190.2 H NT-Pro-B Natriuret Pep 972.000 H Total Protein 7.26 Albumin 3.84 Globulin 3.42 Albumin/Globulin Ratio 1.12 Urine Color Yellow Urine Clarity Clear Urine pH 6.5 Ur Specific [place] 1.010 Urine Protein Negative Urine Glucose (UA) Negative Urine Ketones Negative Urine Blood Negative Urine Nitrite Negative Urine Bilirubin Negative Urine Urobilinogen 1.0 Ur Leukocyte Esterase Negative Blood Type Antibody Screen Crossmatch ([facility]) 11/26/18 11/26/18 17:25 17:35 WBC RBC Hgb Hct MCV MCH MCHC RDW Coeff of Oly Plt Count Immature Gran % (Auto) Neut % (Auto) Lymph % (Auto) [place] % (Auto) Eos % (Auto) Baso % (Auto) Immature Gran # (Auto) Neut # (Auto) Lymph # (Auto) [place] # (Auto) Eos # (Auto) Baso # (Auto) Puncture Site Lb O2 Saturation 89.0 L ABG pH 7.417 ABG pCO2 30.8 L ABG pO2 55.0 L* ABG HCO3 19.9 L ABG Total CO2 21 L ABG Base Excess -5 L Dao Test + FiO2 % 21.0 Sodium Potassium Chloride Carbon Dioxide Anion Gap BUN Creatinine Estimated GFR (MDRD) BUN/Creatinine Ratio Glucose Calcium Total Bilirubin AST ALT Alkaline Phosphatase NT-Pro-B Natriuret Pep Total Protein Albumin Globulin Albumin/Globulin Ratio Urine Color Urine Clarity Urine pH Ur Specific [place] Urine Protein Urine Glucose (UA) Urine Ketones Urine Blood Urine Nitrite Urine Bilirubin Urine Urobilinogen Ur Leukocyte Esterase Blood Type A POSITIVE Antibody Screen Negative Crossmatch ([facility]) See Detail Orders Category Date Time Status [facility] ADMISSION 11/26/18 18: 50 Active ABG DRAW REQUEST Stat CARDIO 11/26/18 17:25 Ordered EKG-(ED ONLY) Stat CARDIO 11/26/18 16:05 Ordered OXYGEN Routine CARDIO 11/26/18 18:26 Ordered ACTIVITY .BR with BRP CARE 11/26/18 18:49 Ordered INTAKE & OUTPUT Q8HR CARE 11/26/18 18:48 Ordered ORDER H&H 1HR POST TRANSFUSION ONCE CARE 11/26/18 18:02 Active PRBC LEUKOREDUCED ONCE CARE 11/26/18 18:02 Active TELEMETRY MONITORING TELE CARE 11/26/18 18:50 Active REGULAR DIET DIETARY 11/26/18 Dinner Ordered IV [ED IV/MEDIPORT/POWERPORT] .ONCE EMERGENCY 11/26/18 16:05 Active ABG Stat LAB 11/26/18 17:25 Completed BASIC METABOLIC PANEL DAILY@0600 LAB 11/27/18 06:00 Ordered BASIC METABOLIC PANEL DAILY@0600 LAB 11/28/18 06:00 Ordered CBC W/ AUTO DIFF DAILY@0600 LAB 11/27/18 06:00 Ordered CBC W/ AUTO DIFF DAILY@0600 LAB 11/28/18 06:00 Ordered CBC W/ AUTO DIFF Stat LAB 11/26/18 16:17 Completed CMP [COMPREHENSIVE METABOLIC PANEL] Stat LAB 11/26/18 16:17 Completed NT-PROBNP Stat LAB 11/26/18 16:17 Completed OCCULT BLOOD, STOOL DAILY LAB 11/27/18 06:00 Uncollected OCCULT BLOOD, STOOL DAILY LAB 11/28/18 06:00 Uncollected OCCULT BLOOD, STOOL Stat LAB 11/26/18 18:48 Uncollected PACKED CELLS Routine LAB 11/26/18 17:35 Results TYPE AND SCREEN Stat LAB 11/26/18 17:35 Results URINALYSIS C & S IF INDICATED Stat LAB 11/26/18 16:45 Completed 0.9 % Sodium Chloride [Saline Flush] MEDS 11/26/18 16:04 Active 1 syr IVF PRN PRN Albuterol Sulfate 0.083% Neb [Albuterol 0.083% Neb] MEDS 11/26/18 21:00 Ordered 1 vial NEB TID Budesonide/Formoterol Fumarate [Symbicort 80-4.5 Mcg MEDS 11/26/18 21:00 Ordered Inhaler] 2 puff IH BID Buspirone HCl [Buspar] MEDS 11/27/18 09:00 Ordered 10 mg PO BID Cyanocobalamin (Vitamin B-12) [Vitamin B12] MEDS 11/27/18 09:00 Ordered 2,500 mcg PO QAM Gabapentin [Gabapentin] MEDS 11/26/18 21:00 Ordered 600 mg PO TID Levothyroxine Sodium [Synthroid] MEDS 11/27/18 09:00 Ordered 125 mcg PO DAILY Lisinopril [Lisinopril] MEDS 11/27/18 09:00 Ordered 20 mg PO DAILY Mirabegron [Myrbetriq] MEDS 11/27/18 09:00 Ordered 50 mg PO DAILY Omeprazole [Prilosec] MEDS 11/27/18 06:30 Ordered 20 mg PO BIDAC Oxybutynin Chloride [Ditropan Xl] MEDS 11/26/18 21:00 Ordered 5 mg PO TID Oxycodone-Acetaminophe 7.5-325 [Percocet 7.5-325] MEDS 11/26/18 18:53 Ordered 1 tab PO ONCE PRN Potassium Chloride [K-Dur] MEDS 11/26/18 21:00 Ordered 20 meq PO BID Venlafaxine HCl [Effexor Xr] MEDS 11/27/18 09:00 Ordered 150 mg PO DAILY RESUSCITATION STATUS Routine OTHERS 11/26/18 18:48 Ordered CHEST, 1V AP ONLY Stat RADS 11/26/18 17:27 Completed Medications Generic Name Dose Route Start Last Admin Trade Name Freq PRN Reason Stop Dose Admin Sodium Chloride 1 syr 11/26/18 16:04 Saline Flush IVF PRN PRN To flush IV Vital Signs: Temp Pulse Resp BP Pulse Ox 11/26/18 14:45 98.6 F 58 L 24 121/66 94 L Departure - Departure Time of Disposition: 18:55 Disposition: ADMITTED INPATIENT Discharge Problem: Iron deficiency anemia, Hyponatremia, Shoulder pain Condition: Stable Pt referred to PMD for follow-up: Yes IPMP verified?: No Additional Instructions: admit to hosp for PRBC infusion Consider GI w/u Allergies/Adverse Reactions: Allergies strawberry Allergy (Unknown, Verified 11/26/18 15:00) morphine Adverse Reaction (Intermediate, Verified 11/26/18 15:00) Chest Tightness tomatoes Allergy (Unknown, Uncoded 11/26/18 15:00) Home Medications: Ambulatory Orders Ranitidine HCl 150 mg PO BID 08/26/12 Levothyroxine Sodium 125 mcg PO DAILY 06/08/15 Potassium Chloride 10 meq PO DAILY 06/08/15 Ibuprofen 800 mg PO PRN PRN 08/18/15 Venlafaxine HCl [Effexor Xr] 150 mg PO DAILY 08/18/15 Budesonide/Formoterol Fumarate [Symbicort 80-4.5 Mcg Inhaler] 2 puff IH BID Cyanocobalamin (Vitamin B-12) [Vitamin B12] 2,500 mcg PO QAM 08/24/15 Gabapentin 600 mg PO TID 08/24/15 Epinephrine [Epipen Twinpak] 0.3 mg IM PRN PRN #1 pen.injctr 12/30/15 Oxybutynin Chloride [Ditropan Xl] 5 mg PO TID 12/30/15 Oxycodone-Acetaminophe 7.5-325 [Percocet 7.5-325] 1 tab PO ONCE 12/30/15 Mirabegron [Myrbetriq] 50 mg PO DAILY 05/30/16 Baclofen 10 mg PO DAILY 10/28/17 Buspirone HCl 10 mg PO BID 10/28/17 Calcium Carbonate/Vitamin D3 [Calcium 600 + Vit D Tablet] 1 each PO DAILY Celecoxib [Celebrex] 200 mg PO DAILY 10/28/17 Cilostazol [Pletal] 100 mg PO BID 10/28/17 Omeprazole [Prilosec] 20 mg PO BIDAC #30 capsule. 10/28/17 Simvastatin [Zocor] 20 mg PO DAILY 10/28/17 Albuterol Sulfate 0.083% Neb [Albuterol 0.083% Neb] 1 vial NEB TID #90 vial.neb 11/20/17 Aspirin 650 mg PO DAILY 10/27/18 Cilostazol 50 mg PO BID 10/27/18 Docusate Sodium [Dok] 100 mg PO DAILY PRN 10/27/18 Fluconazole [Diflucan] 400 mg PO DAILY 10/27/18 Furosemide [Lasix] 20 mg PO DAILY PRN 10/27/18 Hydrochlorothiazide 12.5 mg PO DAILY 10/27/18 Lisinopril 20 mg PO DAILY 10/27/18 Potassium Chloride [K-Dur] 20 meq PO BID 10/27/18 Simvastatin 5 mg PO BEDTIME 10/27/18 Fluconazole 100 mg PO BID 11/26/18 Potassium Chloride [K-Dur] 20 meq PO BID 11/26/18 Disposition Discussed With: Patient, Family
--- NOTE | 2018-11-26 17:47 | DI ---
EXAM: Single view of the chest. History: Chest pain and weakness. Comparison: Chest CT 11/18/2017 Findings: Heart is mildly enlarged. Early interstitial edema. No focal consolidation. No apprecia ble pleural fluid and no pneumothorax. No acute osseous abnormalities. Chronic-appearing deformity of the right shoulder Impression: Mild cardiomegaly with early interstitial edema.
[2018-11-26] MEDS ORDERED: PERCOCET 7.5-325 PO PRN (18:53)
[2018-11-26 20:24] VITALS: BMI 33.6
[2018-11-26] MEDS: ALBUTEROL 0.083% NEB NEB SCH (20:37)
[2018-11-26] MEDS ORDERED: K-DUR PO SCH (21:00)
[2018-11-26] MEDS ORDERED: NEURONTIN PO SCH (21:00)
[2018-11-26] MEDS ORDERED: ALBUTEROL 0.083% NEB NEB SCH (21:00)
[2018-11-26] MEDS: NEURONTIN PO SCH (23:24)
[2018-11-26] MEDS: DITROPAN XL PO SCH (23:24)
[2018-11-26] MEDS: SYMBICORT 80-4.5 MCG INHALER IH SCH (23:25)
[2018-11-27] MEDS: ALBUTEROL 0.083% NEB NEB SCH ×3 (04:58→20:15)
[2018-11-27] MEDS: SYNTHROID PO SCH ×2 (05:48→05:49)
[2018-11-27] MEDS: PRILOSEC PO SCH ×2 (05:48→17:12)
[2018-11-27] MEDS: NEURONTIN PO SCH ×2 (08:52→20:54)
[2018-11-27] MEDS: SYMBICORT 80-4.5 MCG INHALER IH SCH ×2 (08:52→20:55)
[2018-11-27] MEDS: DITROPAN XL PO SCH ×3 (08:52→20:54)
[2018-11-27] MEDS: ZESTRIL PO SCH (08:52)
[2018-11-27] MEDS: BUSPAR PO SCH ×2 (08:52→20:54)
[2018-11-27] MEDS: MYRBETRIQ PO SCH (08:52)
[2018-11-27] MEDS: EFFEXOR XR PO SCH (08:52)
[2018-11-27] MEDS ORDERED: NON-FORMULARY MEDICATION (Mirabegron [Myrbetriq] 50 MG) PO SCH (09:00)
[2018-11-27] MEDS ORDERED: NON-FORMULARY MEDICATION (Cyanocobalamin (Vitamin B-12) [Vitamin B12] 2,500 MCG) PO SCH (09:00)
--- NOTE | 2018-11-27 10:33 | US ---
EXAM: Carotid ultrasound HISTORY: Absent pulses, blurred vision, weakness, numbness COMPARISON: None TECHNIQUE: Carotid ultrasound was performed using Duplex imaging with lopez scale, color, and Doppler imaging performed. FINDINGS: Right carotid: There is atherosclerotic plaque in the common carotid and bulb/internal carotid arter y. Peak systolic velocity measurement in the right internal carotid artery is 1.73 meters per second . End-diastolic velocity measurement in the right internal carotid artery is 0.46 meters per second. Right internal to common carotid artery peak systolic velocity ratio is 2.0. Flow in the right augustin tebral artery is antegrade. Left carotid: There is atherosclerotic plaque in the common carotid and bulb/internal carotid artery . Peak systolic velocity measurement in the left internal carotid artery is 1.82 meters per second. End-diastolic velocity measurement in the left internal carotid artery is 0.25 meters per second. L eft internal to common carotid artery peak systolic velocity ratio measures 2.4. Flow in the left ve rtebral artery is antegrade. IMPRESSION: 1. Right internal carotid: Peak systolic velocity corresponds with moderate (50 - 69%) stenosis. 2. Left internal carotid: Peak systolic velocity corresponds with moderate (50 - 69%) stenosis.
[2018-11-27] MEDS ORDERED: LASIX IVP STA (11:30)
--- NOTE | 2018-11-27 12:06 | CT ---
EXAM: CT abdomen pelvis without contrast HISTORY: Unexplained blood loss COMPARISON: 11/18/2017 TECHNIQUE: CT abdomen pelvis performed without intravenous contrast. Coronal and sagittal reformatt ed images obtained. FINDINGS: Mild bibasilar subsegmental atelectasis. No free air. No acute abnormalities of the bone s. Degenerative change in the spine. Mild rightward curvature lumbar spine. Heart normal in size. Evaluation organ parenchyma limited without contrast. Evaluation also limited due to streak artifac t from patient overlying arms. Liver grossly unremarkable. Gallbladder not visualized and likely jordan rgically absent. Pancreas grossly unremarkable. Spleen grossly unremarkable. Adrenals grossly unre markable. No hydronephrosis or nephrolithiasis. Small stable right renal cyst. Bladder moderately distended. Aorta normal in caliber. Moderate atherosclerosis of the aorta and is branches. Uterus unremarkable. Stomach unremarkable. No dilated loops small bowel. Appendix appears normal. Modera te fecal retention in the colon. Colonic diverticulosis. Body wall edema. IMPRESSION: 1. No acute inflammatory process identified in the abdomen or pelvis. 2. Colonic diverticulosis. 3. Moderate fecal retention in the colon. 4. Body wall edema. 5. Moderately distended bladder. 6. Atherosclerosis.
[2018-11-27] MEDS: NICODERM 14 MG TD SCH (14:48)
[2018-11-28] MEDS: ALBUTEROL 0.083% NEB NEB SCH ×3 (05:00→20:29)
[2018-11-28] MEDS: SYNTHROID PO SCH ×2 (05:54→05:55)
[2018-11-28] MEDS: PRILOSEC PO SCH (05:54)
[2018-11-28] MEDS: EFFEXOR XR PO SCH (08:45)
[2018-11-28] MEDS: DITROPAN XL PO SCH (08:45)
[2018-11-28] MEDS: MYRBETRIQ PO SCH (08:45)
[2018-11-28] MEDS: ZESTRIL PO SCH (08:45)
[2018-11-28] MEDS: NEURONTIN PO SCH ×4 (08:45→21:27)
[2018-11-28] MEDS: SYMBICORT 80-4.5 MCG INHALER IH SCH ×2 (08:45→21:27)
[2018-11-28] MEDS: NICODERM 14 MG TD SCH (08:46)
[2018-11-28] MEDS: BUSPAR PO SCH ×2 (08:46→21:27)
[2018-11-28] MEDS ORDERED: PERCOCET 7.5-325 PO STA (18:19)
[2018-11-28] MEDS ORDERED: PERCOCET 7.5-325 ONE (18:28)
[2018-11-29] MEDS: ALBUTEROL 0.083% NEB NEB SCH ×3 (05:30→20:45)
[2018-11-29] MEDS: SYNTHROID PO SCH ×2 (05:54)
[2018-11-29] MEDS: EFFEXOR XR PO SCH (08:39)
[2018-11-29] MEDS: NEURONTIN PO SCH ×3 (08:39→21:03)
[2018-11-29] MEDS: MYRBETRIQ PO SCH (08:39)
[2018-11-29] MEDS: BUSPAR PO SCH ×2 (08:39→21:03)
[2018-11-29] MEDS: ZESTRIL PO SCH (08:39)
[2018-11-29] MEDS: NICODERM 14 MG TD SCH (08:39)
[2018-11-29] MEDS: SYMBICORT 80-4.5 MCG INHALER IH SCH ×2 (08:45→21:03)
[2018-11-29] MEDS ORDERED: PERCOCET 7.5-325 PO STA (21:43)
--- NOTE | 2018-11-29 22:27 | CT ---
EXAM: CT head without contrast. HISTORY: Recurrent falls. PROCEDURE: Contiguous axial CT images of the head without contrast with coronal and sagittal reforma ts. FINDINGS: There is diffuse cerebral atrophy. The ventricles and basal cisterns are normal in size an d configuration. No evidence of mass or midline shift. No intracranial hemorrhage or evidence of la rge vessel infarct. No extra-axial fluid collection. There are chronic small vessel ischemic change s in the white matter. The paranasal sinuses and mastoid air cells are normal in appearance. No sku ll fracture. Impression: No intracranial hemorrhage or skull fracture. Chronic small vessel ischemic changes. Diffuse cerebral atrophy.
[2018-11-29] MEDS: LOVENOX SUBCUT SCH (22:29)
[2018-11-29] MEDS: FERROUS SULFATE PO SCH (22:29)
[2018-11-30] MEDS: ALBUTEROL 0.083% NEB NEB SCH ×3 (04:55→20:45)
[2018-11-30] MEDS: SYNTHROID PO SCH ×2 (05:55→05:56)
[2018-11-30] MEDS: SYMBICORT 80-4.5 MCG INHALER IH SCH ×2 (09:30→20:29)
[2018-11-30] MEDS: LOVENOX SUBCUT SCH (09:31)
[2018-11-30] MEDS: NEURONTIN PO SCH ×3 (09:31→20:29)
[2018-11-30] MEDS: BUSPAR PO SCH ×2 (09:31→20:28)
[2018-11-30] MEDS: EFFEXOR XR PO SCH (09:32)
[2018-11-30] MEDS: NICODERM 14 MG TD SCH (09:32)
[2018-11-30] MEDS: FERROUS SULFATE PO SCH (09:32)
[2018-11-30] MEDS: ZESTRIL PO SCH (09:32)
[2018-11-30] MEDS: MYRBETRIQ PO SCH (09:32)
[2018-11-30] MEDS ORDERED: LASIX IVP STA (13:17)
[2018-11-30] MEDS ORDERED: ZESTRIL PO STA (16:36)
[2018-11-30] MEDS ORDERED: HYDROCHLOROTHIAZIDE PO SCH (17:00)
[2018-11-30 21:41] VITALS: BP 158/85; TEMP 98.2
[2018-11-30] MEDS ORDERED: PERCOCET 7.5-325 PO STA (21:57)
[2018-12-01] MEDS ORDERED: ZESTRIL PO SCH ×2 (09:00)
[2018-12-01] MEDS ORDERED: COREG ONE ×2 (10:08→10:10)
[2018-12-01] MEDS ORDERED: COREG PO SCH (17:30)
[2018-12-01] MEDS ORDERED: ALBUTEROL 0.083% NEB NEB SCH (20:00)
--- NOTE | 2018-12-04 13:41 | ECHO2D ---
Date of Exam: 12/01/18 Ordering Physician: DR.BENITO CARDOZA Room #: 122 Reason for Echo: EDEMA, HEART MURMUR, HTN M-Mode Normal Adult Results LV Dimensions Normal Adult Results AoV Opening excursions >1.6 >1.6 LVEDD-base- 3.5-5.8 4.2 Ao root dimensions 2.0-3.7 3.4 LVESD-base- 3.1-4.6 L. Atrium dimensions 1.9-3.8 3.6 Post. Wall thickness 0.8-1.1 1.1 IV septum (thickness) 0.7-1.2 1.2 Post. Wall excursion 0.72-1.3 NORMAL Septal motion NORMAL Systolic motion R. Ventricular cavity 1.5-2.0 NORMAL LVEF 60% NORMAL Paradoxical septal wall motion NORMAL 2-D : 2-D M Mode Echocardiogram was performed using apical four chamber and left parasternal long and short axis views. CALCIFIC MITRAL VALVE ANNULUS. Tricuspid and aortic valves appear to be normal. Contractility of the left ventricle seems to be normal, so is the cavity size. Left atrial cavity size and aortic root appear to be normal. There is no pericardial effusion. There is no thrombus noted in the left ventricle or left atrial cavity. No mitral valve prolapse noted. M-MODE: MV: CALCIFIC MITRAL VALVE ANNULUS AV: NORMAL TV: NORMAL PV: CHAMBER SIZE: NORMAL WALL MOTION: NORMAL PERICARDIUM: NORMAL INTERPRETATION: 1. BORDERLINE LEFT VENTRICULAR HYPERTROPHY 2. CALCIFIC MITRAL VALVE ANNULUS 3. NORMAL LEFT VENTRICULAR CONTRACTILITY 4. NORMAL LEFT VENTRICLE SIZE MTDD
--- NOTE | 2018-12-16 13:32 | DS ---
DATE OF SERVICE: 12/01/18 FINAL DIAGNOSES: 1. SEVERE ANEMIA GIVEN 2 UNITS OF PACKED RED BLOOD CELLS ON THIS ADMISSION. 2. RISE IN NT PRO-BNP, GIVEN LASIX DURING THIS ADMISSION. 3. HYPOTHYROIDISM. 4. HYPERTENSION. 5. HYPERLIPIDEMIA. BRIEF HISTORY OF PRESENT ILLNESS/HOSPITAL COURSE: Ms. Martinez was admitted for complaints of weakness and abnormal labs. She was referred to the Emergency Department by her primary care provider, Dr. Zaheer Miur in [place]. She does report she has chronic anemia due to multiple surgeries on her right shoulder. Labs were ordered the day prior to admission and due to them being abnormal she was referred to the Emergency Department. On admission hemoglobin was 6.8, hematocrit 21.3. She was admitted for blood transfusion. She was noted to be on antiinflammatories. She was on multiple home medications that felt needed to be adjusted. During this hospital course, medications were adjusted to prevent further blood loss. Rectal exam was done. There was no blood. Pelvic exam was done and there were no masses. Vaginal wall was smooth. Breast exam was normal. Nipples were not retracted. She did have an echocardiogram done. Estimated ejection fraction was 57%. The full final results of the echocardiogram are pending. She did have a rise in her NT-Pro-BNP. Blood pressure up to 130 at discharge. She was ready to go home. We did discuss with physical therapy. She was still a little wobbly on her turns but overall was doing well. Plans are to order home health and physical therapy at discharge. She was advised that she would need a colonoscopy and endoscopy at discharge. She was also instructed to stop any kind of antiinflammatories including Celebrex and Ibuprofen. She was on two overactive bladder medicines. She was instructed to stop her Oxybutynin. Her Gabapentin was decreased to 100 mg three times a day due to recent falls. She was encouraged to make an appointment [facility] with Dr. Muir either this Friday or Friday and Friday. It was okay to continue her antifungal medications per her surgery's recommendation. She does have a walker at home and she is encouraged to use that walker. She will have followup labs per Dr. Muir. DISCHARGE FOLLOWUP: 1. Followup appointment with Dr. Wood CRAIG. 2. She is encouraged that she needs to make an appointnent [facility] with [facility] technical lead senior developer for endoscopy and colonoscopy. 3. Further orders and recommendations per Dr. King. DISCHARGE MEDICATIONS: As recently discussed. She will continue her regular home medicines with instructions as per mention above. DISCHARGE DIET: Heart Healthy diet. DISCHARGE ACTIVITY LEVEL: Fall precautions and to use her walker. TIME SPENT: GREATER THAN 30 MINUTES MTDD
--- NOTE | 2018-12-24 13:44 | PN ---
DATE OF SERVICE: 11/27/18 SUBJECTIVE: The name of the medications for the patient who is admitted to me from the emergency room. Prescribed by Ena Elizalde MD: Venlafaxine ER 150mg daily Celecoxib 200mg capsule daily Lisinopril Hydrochlorothiazide 20-12.5mg twice a day Omeprazole 20mg capsule daily Gabapentin 600mg three times a day Levothyroxine 125mcg daily Lasix 20mg daily Metformin 500mg twice a day Myrbetriq 90 ER 10/19/18 and Myrbetriq ER tablet 50mg prescribed by Jeimy Casillas filled 10/21/18 per [facility] Potassium Chloride ER 10meq tablet #30 Ena Chisholm filled 10/09/[address] Muir [facility]; Oxybutynin 5mg tablet twice a day Oxycodone 7.5-325 by Juan Jose Perez 10/09/18 KCL 20meq ER #91 daily filled 10/13/18 Myrbetriq 50mg tablet #[address] Jordan Tidwell filled 08/28/18 the bottle does not have a label except the name and I think this is a sample bottle. It has 30 tablets. Fluconazole 200mg tablet daily filled 10/28/18 still has 6 tablets left and today is 11/27/18. Oxybutynin 5mg tablet filled 10/28/18 still has 5 tablets left # 60 was dispensed one twice a day There is also given Ibuprofen 800mg tablet three times daily filled 10/24/18 #90. Ibuprofen still has about half that amount. There was 90 that was prescribed for a month. 62 tablets of Ibuprofen still in the bottle. There are some medications that still are in the bottle and the bottle should have been empty. The rest of the medications were checked by Celeste marks nurse. CYRIL
== END 2018-12-01 16:00 | disposition home or self-care (01) | DRG 812 ==
LOC: ED 14:45 → MEDSURG B 19:42
PROVIDERS: ADMIT General Practice; ATTEND General Practice
DX: E87.1 Hypo-osmolality and hyponatremia; R79.9 Abnormal finding of blood chemistry, unspecified; M25.519 Pain in unspecified shoulder; R53.1 Weakness; E78.5 Hyperlipidemia, unspecified; I10 Essential (primary) hypertension; D50.9 Iron deficiency anemia, unspecified

== ENCOUNTER 2023-12-08 01:29 | Observation (INO) ==
--- NOTE | 2023-12-08 01:56 | ED.PDOC ---
General ED Provider: Dr. SAMAN ZELAYA MD Chief Complaint: Nausea/Vomiting Stated Complaint: Patient with a history of type 2 diabetes, hypertension, chronic low back pain, atrial fibrillation, present anticoagulated with Eliquis 5 mg twice daily complains of intermittent vomiting over the past 2 weeks patient seen emergency room evaluation date 11/13/2023 for vomiting. Patient states she is at least 10-12 episodes of emesis past 24 hours. Denies abdominal pain, fever, urinary symptoms, diarrhea. Time Seen by Provider: 12/08/23 01:50 Mode of Arrival: Wheelchair Information Source: Patient Exam Limitations: Clinical condition Primary Care Provider: RICHARD ROSE APRN, [facility] T[facility] Documentation Reviewed and Agree: Yes What is Opioid Naive?: *Opioid Naive implies the patient is not already taking opioids or not chronically receiving opioids on a daily basis. *PRN dosing is not "usually" associated with tolerance. *Patients are at higher risk of over-sedation and aspiration. What is Opioid Tolerant?: *Opioid Tolerance implies less than the expected response to an opioid. *Acquired tolerance is defined by the patient taking 60mg of oral morphine daily (or equianalgesic dose of another opioid) for 1 week or more. *Often associated with chronic pain. *May take more than usual dose to achieve desired pain control. Review of Systems Review Of Systems Constitutional: Reports Weakness Eyes: Reports No symptoms Ears, Nose, Mouth, Throat: Reports No symptoms Respiratory: Reports No symptoms Cardiac: Reports No symptoms GI: Reports Nausea, Poor appetite, Poor fluid intake and Vomiting : Reports No symptoms Musculoskeletal: Reports No symptoms Skin: Reports No symptoms Neurological: Reports No symptoms Endocrine: Reports No symptoms Hematologic/Lymphatic: Reports No symptoms All Other Systems: Reviewed and Negative [facility] Medical History Thyroid dysfunction E07.9 - Disorder of thyroid, unspecified (ICD-10) Family History Grandfather/Grandmother Prostate cancer Parental FATHER Myocardial infarct, Onset Age: 70 Hypertension Social History Smoking and tobacco status: Former smoker Quit date: 01/31/23 Alcohol intake: current Alcohol intake frequency: holidays/special occasions only Substance use type: does not use Household members: spouse Marital status: M Number of children: 3 Number of grandchildren: 12 Highest education level completed: some college, no degree History of recent travel: No Seatbelt use: always Surgical History History of shoulder surgery x13 surgeries on right shoulder Z98.890 - Other specified postprocedural states (ICD-10) History of gastrointestinal surgery gallbaldder Z98.890 - Other specified postprocedural states (ICD-10) History of tubal ligation 1976 Z98.51 - Tubal ligation status (ICD-10) Cataract extraction and insertion of intraocular lens (~2017) Female Reproductive History Menstrual Hx Hysterectomy: No Hx Tubal Ligation: No Physical Exam Physical Exam Appearance: Reports Ill-appearing Ill-appearing: Mild Eyes: Reports JAMMIE, EOMI and Conjunctiva clear ENT: Reports Ears normal, Nose normal and Oropharynx normal Respiratory: Reports Airway patent, Breath sounds clear and Breath sounds equal Cardiovascular: Reports Pulses normal, No rub, No murmur and Irregular rhythm GI/: Reports Soft, Nontender, No masses, Bowel sounds normal and No Organomegaly Musculoskeletal: Reports Normal strength, ROM intact and Edema (There is trace pretibial edema noted. There will be) Critical Care Note Critical Care Note Total Critical Care Time (mins): 0 Course Course 12/08/23 01:56 12/08/23 01:56 Orders, Labs, Meds: Lab Review 12/08/23 12/08/23 12/08/23 01:56 02:00 02:08 WBC 9.52 RBC 4.46 Hgb 13.5 Hct 42.6 MCV 95.5 MCH 30.3 MCHC 31.7 L RDW Coeff of Oly 13.7 Plt Count 228 Immature Gran % (Auto) 0.2 Neut % (Auto) 70.4 Lymph % (Auto) 16.7 [place] % (Auto) 9.0 Eos % (Auto) 3.3 Baso % (Auto) 0.4 Neut # (Auto) 6.7 Lymph # (Auto) 1.6 [place] # (Auto) 0.9 Eos # (Auto) 0.3 Baso # (Auto) 0.0 Immature Gran # (Auto) 0.0 PT 10.6 INR 1.02 VBG pH 7.38 VBG pCO2 52 H VBG pO2 41 VBG HCO3 30.8 H VBG O2 Saturation 75.1 Sodium 139.6 Potassium 3.63 Chloride 100.5 Carbon Dioxide 34.1 H Anion Gap 8.63 BUN 9.9 Creatinine 1.04 Estimated GFR (MDRD) 52.00 BUN/Creatinine Ratio 9.51 Glucose 117.0 H Lactic Acid Calcium 9.91 Total Bilirubin 0.81 AST 32.3 ALT 21.4 Alkaline Phosphatase 99.7 Troponin I 0.013 Total Protein 7.73 Albumin 4.47 Globulin 3.26 Albumin/Globulin Ratio 1.37 Lipase 22.9 L TSH 49.800 H Urine Color Yellow Urine Clarity Clear Urine pH 6.0 Ur Specific [place] >=1.030 Urine Protein 1+ H Urine Glucose (UA) Negative Urine Ketones Trace H Urine Blood 1+ H Urine Nitrite Negative Urine Bilirubin Negative Urine Urobilinogen 2.0 H Ur Leukocyte Esterase 1+ H Urine Microscopic RBC 10-20 Urine Microscopic WBC 5-10 Ur Squamous Epith Cells 0-2 Urine Bacteria 2+ SARS CoV-2 RNA Rapid TORRIE 12/08/23 12/08/23 02:09 02:28 WBC RBC Hgb Hct MCV MCH MCHC RDW Coeff of Oly Plt Count Immature Gran % (Auto) Neut % (Auto) Lymph % (Auto) [place] % (Auto) Eos % (Auto) Baso % (Auto) Neut # (Auto) Lymph # (Auto) [place] # (Auto) Eos # (Auto) Baso # (Auto) Immature Gran # (Auto) PT INR VBG pH VBG pCO2 VBG pO2 VBG HCO3 VBG O2 Saturation Sodium Potassium Chloride Carbon Dioxide Anion Gap BUN Creatinine Estimated GFR (MDRD) BUN/Creatinine Ratio Glucose Lactic Acid 1.35 Calcium Total Bilirubin AST ALT Alkaline Phosphatase Troponin I Total Protein Albumin Globulin Albumin/Globulin Ratio Lipase TSH Urine Color Urine Clarity Urine pH Ur Specific [place] Urine Protein Urine Glucose (UA) Urine Ketones Urine Blood Urine Nitrite Urine Bilirubin Urine Urobilinogen Ur Leukocyte Esterase Urine Microscopic RBC Urine Microscopic WBC Ur Squamous Epith Cells Urine Bacteria SARS CoV-2 RNA Rapid TORRIE Negative Orders Category Date Time Status Feeder Catcher [ED SLICING MACHINE TENDER APPLIED] .ONCE EMERGENCY 12/08/23 01:56 Active BLOOD CULTURE (ED ONLY) Stat LAB 12/08/23 Ordered CBC W/ AUTO DIFF Stat LAB 12/08/23 01:56 Completed CMP [COMPREHENSIVE METABOLIC PANEL] Stat LAB 12/08/23 01:56 Completed COVID [SARS COV-2 RNA RAPID TORRIE] Stat LAB 12/08/23 02:28 Completed LACTIC ACID Stat LAB 12/08/23 02:09 Completed LIPASE Stat LAB 12/08/23 01:56 Completed PT WITH INR Stat LAB 12/08/23 01:56 Completed TROPONIN I Stat LAB 12/08/23 01:56 Completed TSH [THYROID STIMULATING HORMONE] Stat LAB 12/08/23 01:56 Completed URINALYSIS C & S IF INDICATED Stat LAB 12/08/23 02:08 Completed URINE CULTURE Routine LAB 12/08/23 02:21 Received VENOUS BLOOD GAS Stat LAB 12/08/23 02:00 Completed Ceftriaxone/D5w 1 gm Premix [Rocephin 1 gm/50 ml D5w] Meds 12/08/23 02:53 Active 1 gm in 50 ml IV ONCE Ondansetron HCl/Pf [Zofran 4 mg/2 ml] Meds 12/08/23 01:59 Discontinued 4 mg IVP ONCE STA Pantoprazole Sodium [Protonix] Meds 12/08/23 02:13 Discontinued 40 mg IVP ONCE ONE Sodium Chloride 0.9% [Sodium Chloride] 1,000 ml Meds 12/08/23 01:56 Active IV 150 mls/hr CHEST, 1V AP ONLY Stat RADS 12/08/23 01:[address] ABDOMEN/PELVIS WO CONTRAST Stat RADS 12/08/23 01:56 Completed Medications Generic Name Dose Route Start Last Admin Trade Name Freq PRN Reason Stop Dose Admin Sodium Chloride 1,000 mls @ 150 mls/hr 12/08/23 01:56 12/08/23 02:19 Sodium Chloride IV 12/08/23 08:35 150 mls/hr .Q6H40M ONE Administration CEFTRIAXONE/D5W 1 GM PREMIX 1 gm in 50 mls @ 100 mls/hr 12/08/23 02:53 Rocephin 1 Gm/50 Ml D5w IV 12/08/23 03:22 ONCE ONE Discontinued Medications Generic Name Dose Route Start Last Admin Trade Name Freq PRN Reason Stop Dose Admin Ondansetron HCl 4 mg 12/08/23 01:59 12/08/23 02:20 Ondansetron Hcl/Pf 4 Mg/2 Ml Sdv IVP 12/08/23 02:00 4 mg ONCE STA Administration Pantoprazole Sodium 40 mg 12/08/23 02:13 12/08/23 02:20 Pantoprazole Sodium 40 Mg Vial IVP 12/08/23 02:14 40 mg ONCE ONE Administration Vital Signs: Temp Pulse Resp BP Pulse Ox 12/08/23 01:40 97.5 F L 104 H 16 174/93 H 97 Discharge Plan Discharge Patient Disposition: PLACED OBSERVATION Discharge Problem: Intractable nausea and vomiting, Dehydration Urinary tract infection Qualifiers: Urinary tract infection type: acute cystitis Hematuria presence: with hematuria Qualified Code(s): N30.01 - Acute cystitis with hematuria Prescriptions: No Action mirabegron [Myrbetriq] 50 MG tablet extended release 24 hr 50 mg PO DAILY semaglutide 2 mg/dose (8 mg/3 mL) pen injector 2 mg subcut QWEEK Qty: 3 2RF atorvastatin 40 mg tablet See Rx Instructions .ROUTE .COMPLEX Qty: 90 1RF Dose Instruction: TAKE ONE TABLET DAILY Rx Instructions: TAKE ONE TABLET DAILY cilostazol 100 mg tablet 100 mg PO BID Qty: 60 1RF levothyroxine 125 mcg tablet 125 mcg PO DAILY Qty: 30 1RF enoxaparin [Lovenox] 100 mg/mL syringe 100 mg subcut Q12H Qty: 7 0RF Rx Instructions: Stop taking Eliquis after 11/13/2023 dose. Start lovenox 11/13, 11/14, 11/15 twice daily. 11/16 take only AM dose. Instructions will then be given upon restarting eliquis after procedure. venlafaxine [Effexor XR] 150 mg capsule,extended release 24hr 75 mg PO DAILY epinephrine [EpiPen 2-Ulysses] 0.3 MG/0.3 ML auto-injector 0.3 mg IM PRN PRN (Reason: allergic reaction) Qty: 1 0RF flecainide 50 mg tablet 50 mg PO 2XD ondansetron 4 mg tablet,disintegrating 4 mg PO Q6H PRN (Reason: nausea and vomiting) Qty: 14 0RF docusate sodium [DOK] 100 MG capsule 100 mg PO BID PRN (Reason: Constipation) oxycodone-acetaminophen 1 EACH tablet 1 tab PO Q6HR PRN (Reason: Moderate Pain) Multivitamin [One-Daily Multi-Vitamin] 1 EACH tablet 1 ea PO DAILYWM ferrous sulfate 325 MG tablet 325 mg PO BID albuterol sulfate 90 mcg/actuation HFA aerosol inhaler 2 puff inhalation Q4-6H PRN (Reason: shortness of breath or wheezing) Jardiance 10 mg tablet 10 mg PO QDAY Eliquis 5 mg tablet 5 mg PO BID metoprolol succinate 100 mg tablet extended release 24 hr 100 mg PO QDAY furosemide 40 mg tablet 40 mg PO QDAY buspirone 15 mg tablet 15 mg PO BID gabapentin 100 mg capsule 100 mg PO TID Entresto 49-51 mg tablet 1 tab PO BID famotidine 20 mg tablet 20 mg PO BID Patient Comments: Dr Jernigan fluticasone propion-salmeterol [Advair Diskus] 250-50 mcg/dose blister with device 1 inh inhalation BID aripiprazole 10 mg tablet 10 mg PO QHS Qty: 30 1RF Did you review [place] MEAL GRINDER TENDER for ALL controlled substances?: Not Applicable ED Provider: SAMAN ZELAYA Condition: Stable Physician Progress Note: History obtained from the patient multiple spells, patient with history of type 2 diabetes, chronic low back pain, type 2 diabetes, atrial fibrillation, presently anticoagulated with Eliquis 5 mg twice daily. Patient complains having intermittent emesis over the past weeks. Patient states she had emesis of 10-12 episodes yesterday. Denies abdominal pain fever, urinary symptoms, diarrhea. 0157-EKG interpretation by myself is consistent with atrial fibrillation ventricular sponsor 55 nonspecific switches noted. The abdominal pelvic CT scan without IV contrast interpretation by the radiologist is consistent with no acute intra-abdominal abnormality there is diverticulosis without diverticulitis, there is no free air or free fluid bowel wall thickening. Laboratory data urinalysis leukocyte esterase positive, blood is 1+, WBCs 5-10, bacteria 2+. Ketones +1. CBC, CMP for normal limits. Troponin 0.013. Patient given IV fluids normal saline 1 L at 150 mill/hour, after 2 sets of blood cultures patient ministered Rocephin 1 g IV piggyback. Differential diagnosis: 1) intractable emesis. 2) dehydration 3) urinary tract infection Discussed with hospitalist Barbara Mulligan at 0300 for observation with telemetry
[2023-12-08 02:05] LABS: BASOPHILS % (AUTO) 0.4 % (0.0-3.0); EOSINOPHILS # (AUTO) 0.3 K/ul (0.0-0.7); EOSINOPHILS % (AUTO) 3.3 % (0.0-7.0); HEMATOCRIT 42.6 % (37.0-47.0); HEMOGLOBIN 13.5 g/dl (12.0-16.0); IMMATURE GRANULOCYTE % (AUTO) 0.2 % (0.0-5.0); LYMPHOCYTES # (AUTO) 1.6 K/uL (0.60-3.4); LYMPHOCYTES % (AUTO) 16.7 (10.0-50.0); MEAN CORPUSCULAR HEMOGLOBIN 30.3 pg (27.0-31.0); MEAN CORPUSCULAR HGB CONC 31.7 (31.8-35.4); MEAN CORPUSCULAR VOLUME 95.5 fl (81.0-99.0); MONOCYTES # (AUTO) 0.9 K/uL (0.4-2.0); NEUTROPHILS # (AUTO) 6.7 K/ul (2.0-6.9); NEUTROPHILS % (AUTO) 70.4 % (42.2-75.2); PLATELET COUNT 228 10^3/uL (140-440); RDW COEFFICIENT OF VARIATION 13.7 % (11.6-14.8); RED BLOOD COUNT 4.46 10^6/ul (4.20-5.40); WHITE BLOOD COUNT 9.52 K/ul (4.6-10.2)
[2023-12-08 02:14] LABS: ALANINE AMINOTRANSFERASE 21.4 U/L (0-35); ALBUMIN 4.47 g/dL (3.5-5.0); ALKALINE PHOSPHATASE 99.7 U/L (53-141); ASPARTATE AMINO TRANSFERASE 32.3 U/L (14-36); BILIRUBIN,TOTAL 0.81 mg/dL (0.2-1.3); BLOOD UREA NITROGEN 9.9 mg/dL (7-17); CALCIUM 9.91 mg/dL (8.4-10.2); CARBON DIOXIDE 34.1 mmol/L (22-30.0); CHLORIDE 100.5 mmol/L (98-107); CREATININE 1.04 mg/dL (0.60-1.30); LIPASE 22.9 U/L (23-300); POTASSIUM 3.63 mmol/L (3.5-5.1); SODIUM 139.6 mmol/L (134.5-145); TOTAL PROTEIN 7.73 g/dL (6.3-8.2)
[2023-12-08 02:15] LABS: BILIRUBIN,URINE Negative (NEGATIVE); CLARITY,URINE Clear (CLEAR); COLOR,URINE Yellow (YELLOW); GLUCOSE, URINE (UA) Negative (NEGATIVE); KETONES,URINE Trace (NEGATIVE); LEUKOCYTE ESTERASE ,URINE 1+ (NEGATIVE); NITRITE,URINE Negative (NEGATIVE); PROTEIN,URINE 1+ (NEGATIVE); URINE, BLOOD 1+ (NEGATIVE)
[2023-12-08 02:18] LABS: VBG HCO3 30.8 (22-26); VBG OXYGEN SATURATION 75.1 (60-80); VBG PH 7.38 (7.30-7.40)
[2023-12-08 02:19] LABS: PROTHROMBIN TIME 10.6 SEC (9.3-11.0)
[2023-12-08] MEDS: SODIUM CHLORIDE 1,000 ML IV ONE (02:19)
[2023-12-08 02:20] LABS: BACTERIA,URINE 2+ (NOT PRESENT); SQUAMOUS EPITHELIAL CELL,UR 0-2 (0-5)
[2023-12-08] MEDS: PROTONIX IVP ONE (02:20)
[2023-12-08] MEDS: ZOFRAN 4 MG/2 ML IVP STA (02:20)
[2023-12-08 02:26] LABS: TROPONIN I 0.013 ng/ml (0.0000-0.120)
--- NOTE | 2023-12-08 02:34 | DI ---
EXAM: SINGLE VIEW OF THE CHEST. History: Dyspnea. FINDINGS: Heart size is within normal limits. Mitral valve calcifications. No consolidation within the lungs. No pleural fluid and no pneumothorax. No acute osseous abnormalities. Right shoulder a rthroplasty hardware. Impression: No acute cardiopulmonary process
[2023-12-08 02:35] LABS: SARS COV-2 RNA RAPID NAAT NEGATIVE (NEGATIVE)
--- NOTE | 2023-12-08 02:39 | CT ---
EXAM: CT SCAN ABDOMEN PELVIS WITHOUT CONTRAST HISTORY: Vomiting COMPARISON: CT scan abdomen pelvis 11/13/2023 FINDINGS: Helically acquired axial images were obtained through the abdomen and pelvis utilizing 2.5 -mm collimation. Sagittal and coronal instructions were imaged and reviewed... The visualized lung bases are clear. There has been prior cholecystectomy. The liver, pancreas, spleen and adrenal glan ds have normal unenhanced CT appearance. Atherosclerotic changes are seen involving the aorta withou t aneurysm formation. There is bilateral renal vascular calcification without mass or hydronephrosis . There are simple bilateral renal cysts.. There is diverticulosis without diverticulitis. There i s normal-appearing uterus.. There is normal appendix. . The bladder is decompressed limiting evalu ation.. Bone windows reveals no lytic or blastic lesions. IMPRESSION: No acute intra-abdominal findings. All CT scans are performed using dose optimization techniques as appropriate to the performed exam an d include at least one of the following: Automated exposure control, adjustment of the mA and/or kV according t o size, and the use of iterative reconstruction technique.
[2023-12-08 02:45] LABS: THYROID STIMULATING HORMONE 49.8 uIU/L (0.465-4.68)
[2023-12-08] MEDS ORDERED: SODIUM CHLORIDE 1,000 ML IV ONE (03:07)
[2023-12-08] MEDS: ROCEPHIN 1 GM/50 ML D5W 1 GM/50 ML BAG IV ONE (03:15)
[2023-12-08] MEDS ORDERED: ZOFRAN 4 MG/2 ML IVP PRN (03:36)
[2023-12-08 04:38] VITALS: BMI 33.4
[2023-12-08] MEDS ORDERED: SYNTHROID PO SCH (09:00)
[2023-12-08] MEDS ORDERED: SYNTHROID IVP SCH (09:00)
[2023-12-08] MEDS: SYNTHROID PO SCH ×2 (11:14→11:15)
[2023-12-08] MEDS: ELIQUIS PO SCH ×2 (11:15→21:15)
[2023-12-08] MEDS: TOPROL XL PO ONE (11:23)
[2023-12-08] MEDS: XANAX PO ONE (12:26)
--- NOTE | 2023-12-08 12:32 | PCM ---
Date of Service Date Seen by Provider: 12/08/23 Time Seen by Provider: 08:45 Admit Day/Time Admission Date: 12/08/23 Reason for Admission Chief Complaint: ACUTE EMESIS, INTROTABLE NAUSEA / VOMITTING Hospital Provider Hospital Provider: RJ HERNANDEZ, [facility] [place] Primary Care Physician Primary Care Physician: RICHARD ROSE APRN, FNP-C History of Present Illness History of Present Illness: 73 yo female presented to the ER with complaints of vomiting x 2 weeks. States it is intermittent and vomits 10-12 times a day. Denies abdominal pain, urinary symptoms, fever, chills, sob, chest pain, or other symptoms. Has been taking her Trulicity and pain pills but no other medications since this started. No obvious cause of vomiting. UA concerning for UTI. Urine culture pending. Admitted to med/surg observation. Case Discussed With Case Discussed With: Patient's case was discussed with the ER Physicians, Dr. Mojica. [facility] Medical History Thyroid dysfunction E07.9 - Disorder of thyroid, unspecified (ICD-10) Surgical History History of shoulder surgery x13 surgeries on right shoulder Z98.890 - Other specified postprocedural states (ICD-10) History of gastrointestinal surgery gallbaldder Z98.890 - Other specified postprocedural states (ICD-10) History of tubal ligation 1976 Z98.51 - Tubal ligation status (ICD-10) Cataract extraction and insertion of intraocular lens (~2017) Family History Grandfather/Grandmother Prostate cancer Parental FATHER Myocardial infarct, Onset Age: 70 Hypertension CAD (coronary artery disease) Mother CAD (coronary artery disease) Social History Smoking and tobacco status: Former smoker Quit date: 01/31/23 How long ago did patient quit smokin years ago Alcohol intake: current Alcohol intake frequency: holidays/special occasions only Substance use type: does not use Household members: spouse Marital status: M Number of children: 3 Number of grandchildren: 12 Highest education level completed: some college, no degree History of recent travel: No Seatbelt use: always Allergies Allergies Allergy/AdvReac Type Severity Reaction Status Date / Time strawberry Allergy Unknown Rash Verified 12/08/23 01:46 morphine AdvReac Intermediate Chest Verified 12/08/23 01:46 Tightness tomato AdvReac Mild Rash Verified 12/08/23 01:46 Iodinated Contrast Media AdvReac Rash Verified 12/08/23 01:46 Current Medications Home Medications epinephrine 0.3 mg/0.3 mL injection, auto-injector (EpiPen 2-Ulysses) 0.3 mg (0.3 mL) IM PRN PRN allergic reaction ##1 12/30/15 [Rx Confirmed 12/08/23 Last Taken Unknown] mirabegron 50 mg tablet,extended release 24 hr (Myrbetriq) 50 mg PO DAILY 05/30/16 [History Confirmed 12/08/23 Last Taken 12/01/23] docusate sodium 100 mg capsule (DOK) 100 mg PO BID PRN Constipation 10/27/18 [History Confirmed 12/08/23 Last Taken 12/01/23] Multivitamin [One-Daily Multi-Vitamin] 1 ea PO DAILYWM 11/27/18 [History Confirmed 12/08/23 Last Taken 12/01/23] ferrous sulfate 325 mg (65 mg iron) tablet 325 mg PO BID 11/27/18 [History Confirmed 12/08/23 Last Taken 12/01/23] oxycodone-acetaminophen 7.5 mg-325 mg tablet 1 tab PO Q6HR PRN Moderate Pain 11/27/18 [History Confirmed 12/08/23 Last Taken 12/01/23] albuterol sulfate 90 mcg/actuation aerosol inhaler 2 puff inhalation Q4-6H PRN shortness of breath or wheezing 05/20/22 [History Confirmed 12/08/23 Last Taken 12/06/23] apixaban 5 mg tablet (Eliquis) 5 mg PO BID 05/20/22 [History Confirmed 12/08/23 Last Taken 12/01/23] empagliflozin 10 mg tablet (Jardiance) 10 mg PO QDAY 05/20/22 [History Confirmed 12/08/23 Last Taken 12/01/23] metoprolol succinate 100 mg tablet,extended release 24 hr 100 mg PO QDAY 05/20/22 [History Confirmed 12/08/23 Last Taken 12/01/23] venlafaxine 150 mg capsule,extended release 24 hr (Effexor XR) 75 mg PO DAILY 05/20/22 [History Confirmed 12/08/23 Last Taken 12/01/23] aripiprazole 10 mg tablet 10 mg PO QHS #30 tabs 09/02/23 [Rx Confirmed 12/08/23 Last Taken 12/01/23] buspirone 15 mg tablet 15 mg PO BID 09/02/23 [History Confirmed 12/08/23 Last Taken 12/01/23] famotidine 20 mg tablet 20 mg PO BID 09/02/23 [History Confirmed 12/08/23 Last Taken 12/01/23] fluticasone 250 mcg-salmeterol 50 mcg/dose blistr powdr for inhalation (Advair Diskus) 1 inh inhalation BID 09/02/23 [History Confirmed 12/08/23 Last Taken 12/07/23] furosemide 40 mg tablet 40 mg PO QDAY 09/02/23 [History Confirmed 12/08/23 Last Taken 12/01/23] gabapentin 100 mg capsule 100 mg PO TID 09/02/23 [History Confirmed 12/08/23 Last Taken 12/01/23] sacubitril 49 mg-valsartan 51 mg tablet (Entresto) 1 tab PO BID 09/02/23 [History Confirmed 12/08/23 Last Taken 12/01/23] semaglutide 2 mg/dose (8 mg/3 mL) subcutaneous pen injector 2 mg (0.75 mL) subcut QWEEK #3 mL 09/03/23 [Rx Confirmed 10/20/23 Last Taken Unknown] atorvastatin 40 mg tablet See Rx Instructions .Route .COMPLEX #90 tabs 09/05/23 [Rx Confirmed 12/08/23 Last Taken 12/01/23] cilostazol 100 mg tablet 100 mg PO BID #60 tabs 09/09/23 [Rx Confirmed 12/08/23 Last Taken 12/01/23] levothyroxine 125 mcg tablet 125 mcg PO DAILY #30 tabs 10/06/23 [Rx Confirmed 12/08/23 Last Taken 12/01/23] flecainide 50 mg tablet 50 mg PO 2XD 10/20/23 [History Confirmed 12/08/23 Last Taken 12/01/23] ondansetron 4 mg disintegrating tablet 4 mg PO Q6H PRN nausea and vomiting #14 tabs 11/13/23 [Rx Confirmed 12/08/23 Last Taken 12/07/23] Home Apixaban (Apixaban 5 Mg Tab) 5 mg PO BID JAG Aripiprazole (Aripiprazole 5 Mg Tablet) 10 mg PO QHS JAG Atorvastatin Calcium (Atorvastatin Calcium 20 Mg Tablet) 0 mg PO .COMPLEX JAG Buspirone HCl (Buspirone Hcl 10 Mg Tablet) 15 mg PO BID JAG Cilostazol (Cilostazol 100 Mg Tablet) 100 mg PO BID JAG Famotidine (Famotidine 20 Mg Tablet) 20 mg PO BID JAG Flecainide Acetate (Flecainide Acetate 100 Mg Tablet) 50 mg PO 2XD JAG Furosemide (Furosemide 40 Mg Tablet) 40 mg PO QDAY [facility] Gabapentin (Gabapentin 100 Mg Capsule) 100 mg PO TID JAG Levothyroxine Sodium (Levothyroxine Sodium 100 Mcg Tablet) 100 mcg PO QDAC2 [facility] Last Admin: 12/08/23 11:14 Dose: 100 mcg Levothyroxine Sodium (Levothyroxine Sodium 25 Mcg Tablet) 25 mcg PO QDAC2 [facility] Last Admin: 12/08/23 11:15 Dose: 25 mcg Metoprolol Succinate (Metoprolol Succinate 50 Mg Tab.Er.24h) 100 mg PO QDAY [facility] Mirabegron (Mirabegron 25 Mg Tab.Er.24h) 50 mg PO DAILY [facility] Non-Formulary Medication (Fluticasone Propion-Salmeterol [Advair Diskus]) 1 inh IH BID [facility] Non-Formulary Medication (Ferrous Sulfate) 325 mg PO BID [facility] Non-Formulary Medication (Sacubitril-Valsartan [Entresto]) 1 tab PO BID [facility] Ondansetron HCl (Ondansetron Hcl/Pf 4 Mg/2 Ml Sdv) 4 mg IVP Q6H PRN PRN Reason: Nausea / Vomiting Oxycodone/Acetaminophen (Oxycodone/Acetaminophen 7.5/325 Mg Tablet) 1 tab PO Q6HR PRN PRN Reason: MODERATE PAIN Venlafaxine HCl (Venlafaxine Hcl 75 Mg Cap.Er.24h) 75 mg PO DAILY [facility] Discontinued Medications Alprazolam (Alprazolam 0.5 Mg Tablet) 0.5 mg PO ONCE ONE Stop: 12/08/23 11:56 Last Admin: 12/08/23 12:26 Dose: 0.5 mg Apixaban (Apixaban 5 Mg Tab) 5 mg PO BID [facility] Last Admin: 12/08/23 11:15 Dose: 5 mg Sodium Chloride (Sodium Chloride) 1,000 mls @ 150 mls/hr IV .Q6H40M ONE Stop: 12/08/23 08:35 Last Infusion: 12/08/23 11:11 Dose: Infused CEFTRIAXONE/D5W 1 GM PREMIX (Rocephin 1 Gm/50 Ml D5w) 1 gm in 50 mls @ 100 mls/hr IV ONCE ONE Stop: 12/08/23 03:22 Last Admin: 12/08/23 03:15 Dose: 100 mls/hr Levothyroxine Sodium (Levothyroxine Sodium 112 Mcg Tablet) 125 mcg PO DAILY [facility] Metoprolol Succinate (Metoprolol Succinate 50 Mg Tab.Er.24h) 100 mg PO ONCE ONE Stop: 12/08/23 09:01 Last Admin: 12/08/23 11:23 Dose: 100 mg Ondansetron HCl (Ondansetron Hcl/Pf 4 Mg/2 Ml Sdv) 4 mg IVP ONCE STA Stop: 12/08/23 02:00 Last Admin: 12/08/23 02:20 Dose: 4 mg Pantoprazole Sodium (Pantoprazole Sodium 40 Mg Vial) 40 mg IVP ONCE ONE Stop: 12/08/23 02:14 Last Admin: 12/08/23 02:20 Dose: 40 mg Opioid Naive vs. Tolerant Does Patient Take Opioids?: No Is Patient Opioid Naive?: Yes What is Opioid Naive?: *Opioid Naive implies the patient is not already taking opioids or not chronically receiving opioids on a daily basis. *PRN dosing is not "usually" associated with tolerance. *Patients are at higher risk of over-sedation and aspiration. Is Patient Opioid Tolerant?: No What is Opioid Tolerant?: *Opioid Tolerance implies less than the expected response to an opioid. *Acquired tolerance is defined by the patient taking 60mg of oral morphine daily (or equianalgesic dose of another opioid) for 1 week or more. *Often associated with chronic pain. *May take more than usual dose to achieve desired pain control. Review of Systems Constitutional: Reports No symptoms Head: Reports Normocephalic Eyes: Reports No symptoms Ears: Reports No symptoms Nose: Reports No symptoms Mouth: Reports No symptoms Throat: Reports No symptoms Cardiovascular: Reports No symptoms Respiratory: Reports No symptoms Gastrointestinal: Reports Nausea and Vomiting Genitourinary: Reports No Symptoms Musculoskeletal: Reports No symptoms Endocrine: Reports No symptoms Hematology: Reports No symptoms Immunology: Reports No symptoms Neurological: Reports No symptoms Psychiatric: Reports No symptoms Physical examination Most Recent Vital Signs: Most Recent Vital Signs Temperature 98.0 F 12/08/23 10:00 Temperature Source Temporal Artery Scan 12/08/23 10:00 Temperature Source Oral 12/08/23 01:40 Pulse Rate 68 12/08/23 10:00 Respiratory Rate 14 12/08/23 10:00 Blood Pressure 157/101 H 12/08/23 10:00 Blood Pressure Mean 119 12/08/23 10:00 Blood Pressure Left Arm 103/80 12/08/23 03:54 Blood Pressure Location Left Arm 12/08/23 10:00 Blood Pressure Position Sitting 12/08/23 10:00 O2 Sat by Pulse Oximetry 97 12/08/23 10:00 Oxygen Delivery Method Room Air 12/08/23 12:00 Height 5 ft 7 in 12/08/23 03:54 Weight 96.8 kg 12/08/23 03:54 Telemetry Type Remote Telemetry 12/08/23 07:00 Telemetry Monitoring Continues 12/08/23 07:00 Irregular Telemetry Rate (Approximate) 80-90bpm 12/08/23 07:00 Telemetry Heart Rate 75 05/30/21 15:21 Telemetry SPO2 94 12/08/23 04:11 EKG QRS Interval 0.06 12/08/23 07:00 Telemetry Strip Reading AFIB 12/08/23 07:00 Appearance: Positive No Apparent Distress and Alert and Oriented x3 Skin: Positive Warm and Good Turgor HEENT: Positive Normocephalic and PERRLA Neck: Positive Supple and Midline Trachea Chest/Lungs: Positive Symmetrical With Equal Breath Sounds, Clear to Auscultation Bilaterally and Good Air Movement all 4 Lung Alvarado Heart: Positive RRR and Pulses Normal GI/: Positive Soft, Nontender, Bowel Sounds Normal and No Distention Musculoskeletal: Positive Not Examined Extremities: Positive Intact Peripheral Pulses, Stable Joints Without Laxity and Good ROM in All Joints Neurological: Positive Sensation Intact, Motor intact, Alert and Oriented Labs This Visit Labs This Visit: Labs This Visit 12/08/23 12/08/23 12/08/23 01:56 02:00 02:08 WBC 9.52 RBC 4.46 Hgb 13.5 Hct 42.6 MCV 95.5 MCH 30.3 MCHC 31.7 L RDW Coeff of Oly 13.7 Plt Count 228 Immature Gran % (Auto) 0.2 Neut % (Auto) 70.4 Lymph % (Auto) 16.7 Leake % (Auto) 9.0 Eos % (Auto) 3.3 Baso % (Auto) 0.4 Neut # (Auto) 6.7 Lymph # (Auto) 1.6 Leake # (Auto) 0.9 Eos # (Auto) 0.3 Baso # (Auto) 0.0 Immature Gran # (Auto) 0.0 PT 10.6 INR 1.02 VBG pH 7.38 VBG pCO2 52 H VBG pO2 41 VBG HCO3 30.8 H VBG O2 Saturation 75.1 Sodium 139.6 Potassium 3.63 Chloride 100.5 Carbon Dioxide 34.1 H Anion Gap 8.63 BUN 9.9 Creatinine 1.04 Estimated GFR (MDRD) 52.00 BUN/Creatinine Ratio 9.51 Glucose 117.0 H Lactic Acid Calcium 9.91 Total Bilirubin 0.81 AST 32.3 ALT 21.4 Alkaline Phosphatase 99.7 Troponin I 0.013 Total Protein 7.73 Albumin 4.47 Globulin 3.26 Albumin/Globulin Ratio 1.37 Lipase 22.9 L TSH 49.800 H Urine Color Yellow Urine Clarity Clear Urine pH 6.0 Ur Specific [place] >=1.030 Urine Protein 1+ H Urine Glucose (UA) Negative Urine Ketones Trace H Urine Blood 1+ H Urine Nitrite Negative Urine Bilirubin Negative Urine Urobilinogen 2.0 H Ur Leukocyte Esterase 1+ H Urine Microscopic RBC 10-20 Urine Microscopic WBC 5-10 Ur Squamous Epith Cells 0-2 Urine Bacteria 2+ SARS CoV-2 RNA Rapid TORRIE 12/08/23 12/08/23 02:09 02:28 WBC RBC Hgb Hct MCV MCH MCHC RDW Coeff of Oly Plt Count Immature Gran % (Auto) Neut % (Auto) Lymph % (Auto) Leake % (Auto) Eos % (Auto) Baso % (Auto) Neut # (Auto) Lymph # (Auto) Leake # (Auto) Eos # (Auto) Baso # (Auto) Immature Gran # (Auto) PT INR VBG pH VBG pCO2 VBG pO2 VBG HCO3 VBG O2 Saturation Sodium Potassium Chloride Carbon Dioxide Anion Gap BUN Creatinine Estimated GFR (MDRD) BUN/Creatinine Ratio Glucose Lactic Acid 1.35 Calcium Total Bilirubin AST ALT Alkaline Phosphatase Troponin I Total Protein Albumin Globulin Albumin/Globulin Ratio Lipase TSH Urine Color Urine Clarity Urine pH Ur Specific [place] Urine Protein Urine Glucose (UA) Urine Ketones Urine Blood Urine Nitrite Urine Bilirubin Urine Urobilinogen Ur Leukocyte Esterase Urine Microscopic RBC Urine Microscopic WBC Ur Squamous Epith Cells Urine Bacteria SARS CoV-2 RNA Rapid TORRIE Negative Imaging Imaging: EXAM: CT SCAN ABDOMEN PELVIS WITHOUT CONTRAST HISTORY: Vomiting COMPARISON: CT scan abdomen pelvis 11/13/2023 FINDINGS: Helically acquired axial images were obtained through the abdomen and pelvis utilizing 2.5-mm collimation. Sagittal and coronal instructions were imaged and reviewed... The visualized lung bases are clear. There has been prior cholecystectomy. The liver, pancreas, spleen and adrenal glands have normal unenhanced CT appearance. Atherosclerotic changes are seen involving the aorta without aneurysm formation. There is bilateral renal vascular calcification without mass or hydronephrosis. There are simple bilateral renal cysts.. There is diverticulosis without diverticulitis. There is normal- appearing uterus.. There is normal appendix. . The bladder is decompressed limiting evaluation.. Bone windows reveals no lytic or blastic lesions. IMPRESSION: No acute intra-abdominal findings. EXAM: SINGLE VIEW OF THE CHEST. History: Dyspnea. FINDINGS: Heart size is within normal limits. Mitral valve calcifications. No consolidation within the lungs. No pleural fluid and no pneumothorax. No acute osseous abnormalities. Right shoulder arthroplasty hardware. Impression: No acute cardiopulmonary process Review Statement Review Statement: I have independently reviewed and interpreted the labs/EKGs/imaging that were ordered by the ER provider. I have reviewed all outside records that are available currently in our EMR including imaging/notes/labs from previous visits. Plan Plan: 1. Intractable N/V - zofran Q6H prn, received protonix in ER, has not had further episodes of vomiting, clear liquid diet advance as tolerated 2. UTI - UA suspect, urine culture pending, asymptomatic, holding treatment at this time 3. Afib - not in RVR, continue home medications 4. Diabetes - chronic, ADA diet, accuchecks qid with ssi DVT Prophylaxis: Eliquis Time Spent: Greater than 80 minutes spent with patient, 50% of the time spent with this patient was devoted to counseling and coordination of care. [facility] minutes spent discussing advance care planning. Disposition: Admit to: Med/Surg Observation DNI Discussed Plan of Care with Dr. Chloe Tomlin. Medications Medication Orders: Medications Ordered Category Date Time Status Apixaban [Eliquis] Meds 12/08/23 09:00 Active 5 mg PO BID Levothyroxine Sodium [Synthroid] Meds 12/08/23 09:00 Active 100 mcg PO QDAC2 Levothyroxine Sodium [Synthroid] Meds 12/08/23 09:00 Active 25 mcg PO QDAC2 Ondansetron HCl/Pf [Zofran 4 mg/2 ml] Meds 12/08/23 03:36 Active 4 mg IVP Q6H PRN
[2023-12-08] MEDS ORDERED: PERCOCET 7.5-325 PO PRN (12:53)
[2023-12-08] MEDS: NEURONTIN PO SCH (15:09)
[2023-12-08] MEDS ORDERED: XANAX PO PRN (18:33)
[2023-12-08] MEDS ORDERED: NON-FORMULARY MEDICATION (Ferrous Sulfate 325 MG tablet) PO SCH (21:00)
[2023-12-08] MEDS ORDERED: NON-FORMULARY MEDICATION (Fluticasone Propion-Salmeterol [Advair Diskus] 250-50 mcg/dose b IH SCH (21:00)
[2023-12-08] MEDS: BUSPAR PO SCH (21:14)
[2023-12-08] MEDS: ABILIFY PO SCH (21:14)
[2023-12-08] MEDS: PEPCID PO SCH (21:15)
[2023-12-08] MEDS: PLETAL PO SCH (21:15)
[2023-12-08] MEDS: FERROUS SULFATE PO SCH (21:15)
[2023-12-08] MEDS: ENTRESTO 24 MG-26 MG TABLET PO SCH (21:15)
[2023-12-08] MEDS: SYMBICORT 160-4.5 MCG INHALER IH SCH (21:17)
[2023-12-08] MEDS: TAMBOCOR PO SCH (21:22)
[2023-12-09] MEDS: LASIX TAB PO SCH (05:21)
[2023-12-09 05:39] LABS: BASOPHILS # (AUTO) 0.1 K/uL (0-0.2); BASOPHILS % (AUTO) 0.9 % (0.0-3.0); EOSINOPHILS # (AUTO) 0.4 K/ul (0.0-0.7); HEMATOCRIT 38.6 % (37.0-47.0); HEMOGLOBIN 12.2 g/dl (12.0-16.0); IMMATURE GRANULOCYTE % (AUTO) 0.2 % (0.0-5.0); LYMPHOCYTES # (AUTO) 1.8 K/uL (0.60-3.4); LYMPHOCYTES % (AUTO) 28.1 (10.0-50.0); MEAN CORPUSCULAR HEMOGLOBIN 30.6 pg (27.0-31.0); MEAN CORPUSCULAR HGB CONC 31.6 (31.8-35.4); MEAN CORPUSCULAR VOLUME 96.7 fl (81.0-99.0); MONOCYTES # (AUTO) 0.6 K/uL (0.4-2.0); MONOCYTES % (AUTO) 9.9 (0-10); NEUTROPHILS # (AUTO) 3.6 K/ul (2.0-6.9); NEUTROPHILS % (AUTO) 54.9 % (42.2-75.2); PLATELET COUNT 184 10^3/uL (140-440); RED BLOOD COUNT 3.99 10^6/ul (4.20-5.40); WHITE BLOOD COUNT 6.47 K/ul (4.6-10.2)
[2023-12-09 05:57] VITALS: BP 119/68; RESP 16; TEMP 97.3
[2023-12-09 06:14] LABS: ALANINE AMINOTRANSFERASE 16.3 U/L (0-35); ALBUMIN 3.44 g/dL (3.5-5.0); ALKALINE PHOSPHATASE 76.5 U/L (53-141); ASPARTATE AMINO TRANSFERASE 23.9 U/L (14-36); BILIRUBIN,TOTAL 0.4 mg/dL (0.2-1.3); BLOOD UREA NITROGEN 10.6 mg/dL (7-17); CALCIUM 8.31 mg/dL (8.4-10.2); CARBON DIOXIDE 27.2 mmol/L (22-30.0); CHLORIDE 104.6 mmol/L (98-107); CREATININE 0.92 mg/dL (0.60-1.30); GLUCOSE 101.7 mg/dL (74-106); POTASSIUM 3.56 mmol/L (3.5-5.1); SODIUM 140.1 mmol/L (134.5-145); TOTAL PROTEIN 6.26 g/dL (6.3-8.2)
[2023-12-09] MEDS ORDERED: TOPROL XL PO SCH (09:00)
[2023-12-09] MEDS: EFFEXOR XR PO SCH (09:04)
[2023-12-09] MEDS: TOPROL XL PO SCH (09:06)
[2023-12-09] MEDS: MYRBETRIQ PO SCH (09:06)
[2023-12-09] MEDS: LIPITOR PO SCH (09:06)
--- NOTE | 2023-12-09 09:24 | DCSUM ---
Admission Date Admission Date: 12/08/23 Discharge Date Discharge Date: 12/09/23 Admission Diagnosis Admission Diagnosis: 1. Intractable N/V 2. UTI 3. Afib 4. Diabetes Discharge Diagnosis Discharge Diagnosis: 1. Intractable N/V - Resolved, zofran Rx sent 2. UTI - ruled out, urine culture negative 3. Afib - Rate controlled, reinier on tele overnight, decreased metoprolol dose 4. Diabetes - Chronic, stable Hospital Provider Hospital Provider: RJ HERNANDEZ, [facility] [place] Primary Care Physician: RICHARD ROSE APRN, FNP-C Summary of History and Physical Summary of History and Physical: 73 yo female presented to the ER with complaints of vomiting x 2 weeks. States it is intermittent and vomits 10-12 times a day. Denies abdominal pain, urinary symptoms, fever, chills, sob, chest pain, or other symptoms. Has been taking her Trulicity and pain pills but no other medications since this started. No obvious cause of vomiting. UA concerning for UTI. Urine culture pending. Admitted to med/surg observation. Hospital Course Subjective: Patient was given IV fluids until able to tolerate PO intake. Has not had any further episodes of n/v. Reported anxiety during stay and requested medication. Took xanax and tolerated well. UA was questionable for UTI. Patient asymptomatic. Urine culture negative. Heart ran down into 40s last night. Had received 100 mg metoprolol and flecainide yesterday am. Held flecainide dose last night. Restarted metoprolol this am at 50 mg. No further changes to home medications. Appearance: Pleasant, No Apparent Distress and Alert HEENT: MMM, Supple and No JVD CVS: No Murmur, No Rubs and No Gallop Abdomen: Soft, Non-Tender and No Distention Respiratory: No Dyspnea Extremities: No Edema Vital Signs: Most Recent Vital Signs Temperature 97.3 F L 12/09/23 05:56 Temperature Source Temporal Artery Scan 12/09/23 05:56 Temperature Source Oral 12/08/23 01:40 Pulse Rate 53 L 12/09/23 05:56 Respiratory Rate 16 12/09/23 05:56 Blood Pressure 119/68 12/09/23 05:56 Blood Pressure Mean 85 12/09/23 05:56 Blood Pressure Left Arm 103/80 12/08/23 03:54 Blood Pressure Location Left Arm 12/09/23 05:56 Blood Pressure Position Supine 12/09/23 05:56 O2 Sat by Pulse Oximetry 99 12/09/23 05:56 Oxygen Delivery Method Room Air 12/09/23 08:00 Height 5 ft 7 in 12/08/23 03:54 Weight 96.8 kg 12/08/23 03:54 Telemetry Type Remote Telemetry 12/09/23 07:00 Telemetry Monitoring Continues 12/09/23 07:00 Irregular Telemetry Rate (Approximate) 40-50 BPM 12/09/23 01:00 Telemetry Heart Rate 74 12/09/23 07:00 Telemetry SPO2 94 12/08/23 04:11 EKG QRS Interval 0.06 12/09/23 07:00 Telemetry Strip Reading Afib 12/09/23 07:00 Imaging: EXAM: CT SCAN ABDOMEN PELVIS WITHOUT CONTRAST HISTORY: Vomiting COMPARISON: CT scan abdomen pelvis 11/13/2023 FINDINGS: Helically acquired axial images were obtained through the abdomen and pelvis utilizing 2.5-mm collimation. Sagittal and coronal instructions were imaged and reviewed... The visualized lung bases are clear. There has been prior cholecystectomy. The liver, pancreas, spleen and adrenal glands have normal unenhanced CT appearance. Atherosclerotic changes are seen involving the aorta without aneurysm formation. There is bilateral renal vascular calcification without mass or hydronephrosis. There are simple bilateral renal cysts.. There is diverticulosis without diverticulitis. There is normal- appearing uterus.. There is normal appendix. . The bladder is decompressed limiting evaluation.. Bone windows reveals no lytic or blastic lesions. IMPRESSION: No acute intra-abdominal findings. Lab Results Last 24 Hours: 12/09/23 05:12 WBC 6.47 RBC 3.99 L Hgb 12.2 Hct 38.6 MCV 96.7 MCH 30.6 MCHC 31.6 L RDW Coeff of Oly 14.0 Plt Count 184 Immature Gran % (Auto) 0.2 Neut % (Auto) 54.9 Lymph % (Auto) 28.1 [place] % (Auto) 9.9 Eos % (Auto) 6.0 Baso % (Auto) 0.9 Neut # (Auto) 3.6 Lymph # (Auto) 1.8 [place] # (Auto) 0.6 Eos # (Auto) 0.4 Baso # (Auto) 0.1 Immature Gran # (Auto) 0.0 Sodium 140.1 Potassium 3.56 Chloride 104.6 Carbon Dioxide 27.2 Anion Gap 11.86 BUN 10.6 Creatinine 0.92 Estimated GFR (MDRD) 60.00 BUN/Creatinine Ratio 11.52 Glucose 101.7 Calcium 8.31 L Total Bilirubin 0.40 AST 23.9 ALT 16.3 Alkaline Phosphatase 76.5 Total Protein 6.26 L Albumin 3.44 L Globulin 2.82 Albumin/Globulin Ratio 1.21 Discharge Instructions Discharge Planning: Discharge Planning > 40 minutes If patient is discharged with left ventricular systolic dysfunction: NA Discharged with a beta eber? [] If no, why not? [] Discharged with an sunny/arb? [] If no, why not? [] Diagnosis: Vomiting, Dehydration Diet: Diabetic Activity: as tolerated Follow-up with PCP next week. Medications: Refill of zofran 4 mg every 6 hours as needed for nausea/vomiting sent Decreased dose of metoprolol to 50 mg daily due to heart rate dropping low during stay Xanax 0.5 mg may take up to 3 times a day as needed for anxiet Discharge Medications: Medications at Discharge (Home Meds & RX) epinephrine 0.3 mg/0.3 mL injection, auto-injector (EpiPen 2-Ulysses) 0.3 mg (0.3 mL) IM PRN PRN allergic reaction ##1 12/30/15 mirabegron 50 mg tablet,extended release 24 hr (Myrbetriq) 50 mg PO DAILY 05/30/16 docusate sodium 100 mg capsule (DOK) 100 mg PO BID PRN Constipation 10/27/18 Multivitamin [One-Daily Multi-Vitamin] 1 ea PO DAILYWM 11/27/18 ferrous sulfate 325 mg (65 mg iron) tablet 325 mg PO BID 11/27/18 oxycodone-acetaminophen 7.5 mg-325 mg tablet 1 tab PO Q6HR PRN Moderate Pain 11/27/18 albuterol sulfate 90 mcg/actuation aerosol inhaler 2 puff inhalation Q4-6H PRN shortness of breath or wheezing 05/20/22 apixaban 5 mg tablet (Eliquis) 5 mg PO BID 05/20/22 empagliflozin 10 mg tablet (Jardiance) 10 mg PO QDAY 05/20/22 metoprolol succinate 100 mg tablet,extended release 24 hr 100 mg PO QDAY 05/20/22 venlafaxine 150 mg capsule,extended release 24 hr (Effexor XR) 75 mg PO DAILY 05/20/22 aripiprazole 10 mg tablet 10 mg PO QHS #30 tabs 09/02/23 buspirone 15 mg tablet 15 mg PO BID 09/02/23 famotidine 20 mg tablet 20 mg PO BID 09/02/23 fluticasone 250 mcg-salmeterol 50 mcg/dose blistr powdr for inhalation (Advair Diskus) 1 inh inhalation BID 09/02/23 furosemide 40 mg tablet 40 mg PO QDAY 09/02/23 gabapentin 100 mg capsule 100 mg PO TID 09/02/23 sacubitril 49 mg-valsartan 51 mg tablet (Entresto) 1 tab PO BID 09/02/23 semaglutide 2 mg/dose (8 mg/3 mL) subcutaneous pen injector 2 mg (0.75 mL) subcut QWEEK #3 mL 09/03/23 atorvastatin 40 mg tablet See Rx Instructions .Route .COMPLEX #90 tabs 09/05/23 cilostazol 100 mg tablet 100 mg PO BID #60 tabs 09/09/23 levothyroxine 125 mcg tablet 125 mcg PO DAILY #30 tabs 10/06/23 flecainide 50 mg tablet 50 mg PO 2XD 10/20/23 ondansetron 4 mg disintegrating tablet 4 mg PO Q6H PRN nausea and vomiting #14 tabs 11/13/23 Discharge Plan Discharge Discharge Orders: Discharge Patient (ONCE); Ordered 12/09/23 Ordered By: RADHA VASQUEZ Activity Restrictions/Additional Instructions: Diagnosis: Vomiting, Dehydration Diet: Diabetic Activity: as tolerated Follow-up with PCP next week. Medications: Refill of zofran 4 mg every 6 hours as needed for nausea/vomiting sent Decreased dose of metoprolol to 50 mg daily due to heart rate dropping low during stay Xanax 0.5 mg may take up to 3 times a day as needed for anxiety Instructions: Dehydration (GEN), Acute Nausea and Vomiting (GEN) Patient Disposition: HOME WITH FAMILY CARE Prescriptions: New metoprolol succinate 50 mg Tablet Extended Release 24 Hr 50 mg PO DAILY Qty: 30 0RF alprazolam 0.5 mg Tablet 0.5 mg PO TID PRN (Reason: anxiety) Qty: 20 0RF Continued mirabegron [Myrbetriq] 50 MG tablet extended release 24 hr 50 mg PO DAILY semaglutide 2 mg/dose (8 mg/3 mL) pen injector 2 mg subcut QWEEK Qty: 3 2RF atorvastatin 40 mg tablet See Rx Instructions .ROUTE .COMPLEX Qty: 90 1RF Dose Instruction: TAKE ONE TABLET DAILY Rx Instructions: TAKE ONE TABLET DAILY cilostazol 100 mg tablet 100 mg PO BID Qty: 60 1RF levothyroxine 125 mcg tablet 125 mcg PO DAILY Qty: 30 1RF venlafaxine [Effexor XR] 150 mg capsule,extended release 24hr 75 mg PO DAILY epinephrine [EpiPen 2-Ulysses] 0.3 MG/0.3 ML auto-injector 0.3 mg IM PRN PRN (Reason: allergic reaction) Qty: 1 0RF flecainide 50 mg tablet 50 mg PO 2XD docusate sodium [DOK] 100 MG capsule 100 mg PO BID PRN (Reason: Constipation) oxycodone-acetaminophen 1 EACH tablet 1 tab PO Q6HR PRN (Reason: Moderate Pain) Multivitamin [One-Daily Multi-Vitamin] 1 EACH tablet 1 ea PO DAILYWM ferrous sulfate 325 MG tablet 325 mg PO BID ondansetron 4 mg tablet,disintegrating 4 mg PO Q6H PRN (Reason: nausea and vomiting) Qty: 20 0RF albuterol sulfate 90 mcg/actuation HFA aerosol inhaler 2 puff inhalation Q4-6H PRN (Reason: shortness of breath or wheezing) Jardiance 10 mg tablet 10 mg PO QDAY Eliquis 5 mg tablet 5 mg PO BID furosemide 40 mg tablet 40 mg PO QDAY buspirone 15 mg tablet 15 mg PO BID gabapentin 100 mg capsule 100 mg PO TID Entresto 49-51 mg tablet 1 tab PO BID famotidine 20 mg tablet 20 mg PO BID Patient Comments: Dr Jernigan fluticasone propion-salmeterol [Advair Diskus] 250-50 mcg/dose blister with d evice 1 inh inhalation BID aripiprazole 10 mg tablet 10 mg PO QHS Qty: 30 1RF Discontinued metoprolol succinate 100 mg tablet extended release 24 hr 100 mg PO QDAY Did you review [place] [employer] for ALL controlled substances?: No Discussed opioids are addictive and Narcan is available by prescription or from pharmacy.: No Condition: Stable Referrals: RICHARD ROSE APRN,HYDROLOGY PROFESSOR-C [Primary Care Provider] - 12/15/23 2:45 pm
[2023-12-09 10:29] VITALS: PULSE 60
== END 2023-12-09 11:11 | disposition home or self-care (01) ==
LOC: MEDSURG B 01:29 → ED 01:29 → MEDSURG B 04:00
PROVIDERS: ADMIT Hospitalist; ATTEND Nurse Practitioner Family